=== PATIENT | male | born 1985 | race Two or more races ===

== ENCOUNTER 2017-01-03 16:11 | Inpatient (IN) | payer MEDICAID ==
[~2017-01-03] VITALS: Ht 175.3 cm; Wt 152.8 kg
[~2017-01-03 16:11] MED LIST: ALBU18HF INH; BUME1TAB21 PO; CARV-39 PO; FURO40TA6 PO; LISI30TA4 PO; PROG100I PO
[2017-01-03] MEDS ORDERED: DILTIAZEM 5 MG/ML, 5ML ONE (16:39)
[2017-01-03] MEDS ORDERED: DILTIAZEM 5 MG/ML, 5ML IV ONE (17:00)
[2017-01-03] MEDS ORDERED: SODIUM CHLORIDE FLUSH 10ML SYR IVF ONE (17:00)
[2017-01-03 17:16] LABS: ASPARTATE AMINO TRANSFERASE 22 U/L (15-37); BLOOD UREA NITROGEN 17 mg/dL (7-18)
[2017-01-03 17:22] LABS: IS PT STATUS REG ER OR PRE ER? YES
[2017-01-03] MEDS ORDERED: APIXABAN 5 MG TABLET PO ONE (17:30)
[2017-01-03] MEDS ORDERED: DIGOXIN 0.25 MG/ML, 2ML IVPush ONE (17:30)
[2017-01-03 17:31] LABS: HEMOGLOBIN 13.3 g/dL (13.7-18.0)
[2017-01-03] MEDS ORDERED: DIGOXIN 0.25 MG/ML, 2ML ONE (17:37)
[2017-01-03] MEDS ORDERED: SODIUM CHLORIDE FLUSH 10ML SYR IVF PRN (19:30)
[2017-01-03] MEDS ORDERED: METOPROLOL 1 MG/ML, 5ML ONE (19:41)
[2017-01-03] MEDS ORDERED: METOPROLOL 1 MG/ML, 5ML IVPush ONE ×2 (20:00→21:00)
[2017-01-03] MEDS ORDERED: METOPROLOL 1 MG/ML, 5ML IVPush STA (20:49)
[2017-01-03] MEDS ORDERED: GUAIFENESIN/DM 200-20MG, 10ML UDC PO PRN (21:00)
[2017-01-03] MEDS ORDERED: ACETAMINOPHEN 325 MG TABLET PO PRN (21:00)
[2017-01-03 22:06] LABS: IS PT STATUS REG ER OR PRE ER? NO
[2017-01-03 22:38] VITALS: BP 142/63
[2017-01-03] MEDS ORDERED: LORazepam 1MG TABLET PO ONE (23:00)
[2017-01-04 02:12] VITALS: BP 122/95
[2017-01-04 03:19] LABS: BLOOD UREA NITROGEN 23 mg/dL (7-18)
[2017-01-04 03:27] LABS: IS PT STATUS REG ER OR PRE ER? NO
[2017-01-04] MEDS ORDERED: METOPROLOL 1 MG/ML, 5ML IVPush STA (05:03)
[2017-01-04] MEDS ORDERED: METOPROLOL 1 MG/ML, 5ML ONE ×2 (05:11→15:02)
[2017-01-04 08:00] VITALS: BP 97/57
[2017-01-04] MEDS: FUROSEMIDE 40 MG TABLET PO SCH (08:04)
[2017-01-04] MEDS: APIXABAN 5 MG TABLET PO SCH (08:04)
[2017-01-04] MEDS ORDERED: METOPROLOL TARTRATE 25 MG TABLET PO SCH (09:00)
[2017-01-04] MEDS: DIGOXIN 0.25 MG/ML, 2ML IVPush SCH ×2 (09:30→17:30)
[2017-01-04 09:49] LABS: IS PT STATUS REG ER OR PRE ER? NO
[2017-01-04 14:03] VITALS: BP 104/86
[2017-01-04] MEDS: METOPROLOL TARTRATE 25 MG TABLET PO SCH ×2 (14:06→20:17)
[2017-01-04] MEDS ORDERED: METOPROLOL 1 MG/ML, 5ML IVPush ONE (15:00)
[2017-01-04] MEDS ORDERED: POTASSIUM CHLORIDE 20 MEQ TAB.ER.PRT PO ONE (15:00)
[2017-01-04] MEDS ORDERED: MAGNESIUM SULFATE PMX 2GM/50ML 50 ML IV ONE (15:00)
[2017-01-04 15:05] VITALS: BP 101/74
[2017-01-04] MEDS ORDERED: LORazepam 1MG TABLET PO PRN (16:00)
[2017-01-04 20:00] VITALS: BP 121/85
[2017-01-05] MEDS: DIGOXIN 0.25 MG/ML, 2ML IVPush SCH ×2 (01:25→08:57)
[2017-01-05 02:00] VITALS: BP 112/82
[2017-01-05] MEDS: METOPROLOL TARTRATE 25 MG TABLET PO SCH ×4 (03:07→21:18)
[2017-01-05] MEDS: TEMAZEPAM 15 MG CAPSULE PO PRN ×2 (03:12→21:18)
[2017-01-05 05:48] LABS: HEMOGLOBIN 13.4 g/dL (13.7-18.0)
[2017-01-05 05:50] LABS: BLOOD UREA NITROGEN 19 mg/dL (7-18)
[2017-01-05 05:55] LABS: ASPARTATE AMINO TRANSFERASE 26 U/L (15-37)
[2017-01-05] MEDS: FUROSEMIDE 40 MG TABLET PO SCH (06:05)
[2017-01-05 06:40] VITALS: BP 111/84
[2017-01-05] MEDS ORDERED: AMIODARONE 150 MG in DEXTROSE 5% 100 ML IV ONE ×2 (08:00→10:30)
[2017-01-05 08:48] VITALS: BP 106/70
[2017-01-05] MEDS: AMIODARONE 900 MG in DEXTROSE 5% 482 ML IV PRN (08:52)
[2017-01-05] MEDS: FILTER 0.22 MICRON FOR AMIODARONE IV PRN (08:54)
[2017-01-05] MEDS: APIXABAN 5 MG TABLET PO SCH (08:54)
[2017-01-05] MEDS ORDERED: LISINOPRIL 5 MG TABLET PO SCH (09:00)
[2017-01-05] MEDS: LISINOPRIL 5 MG TABLET PO SCH (12:42)
[2017-01-05 15:10] VITALS: BP 117/86
[2017-01-05 19:43] VITALS: BP 114/86
[2017-01-06] VITALS (7 sets, daily range): BP systolic 108–160; BP diastolic 77–89
[2017-01-06] MEDS: METOPROLOL TARTRATE 25 MG TABLET PO SCH ×2 (03:02→08:05)
[2017-01-06] MEDS ORDERED: NITROGLYCERIN 0.4 MG/SPRAY SL PRN (05:30)
[2017-01-06] MEDS ORDERED: NITROGLYCERIN 0.4 MG BOTTLE (25 TABS) SL PRN (05:30)
[2017-01-06] MEDS: FILTER 0.22 MICRON FOR AMIODARONE IV PRN (06:16)
[2017-01-06] MEDS: AMIODARONE 900 MG in DEXTROSE 5% 482 ML IV PRN (06:16)
[2017-01-06] MEDS: FUROSEMIDE 40 MG TABLET PO SCH (08:05)
[2017-01-06] MEDS: LISINOPRIL 5 MG TABLET PO SCH (08:05)
[2017-01-06] MEDS: APIXABAN 5 MG TABLET PO SCH (08:05)
[2017-01-06] MEDS: DIGOXIN 0.25 MG/ML, 2ML IVPush SCH (08:06)
[2017-01-06 08:43] LABS: HEMOGLOBIN 13.8 g/dL (13.7-18.0)
[2017-01-06 08:55] LABS: BLOOD UREA NITROGEN 19 mg/dL (7-18)
[2017-01-06 09:00] LABS: ASPARTATE AMINO TRANSFERASE 19 U/L (15-37)
[2017-01-06] MEDS ORDERED: AMIODARONE 150 MG in DEXTROSE 5% 100 ML IV ONE (09:30)
[2017-01-06] MEDS ORDERED: FUROSEMIDE 40 MG/4 ML IV ONE (09:30)
[2017-01-06] MEDS: CARVEDILOL 12.5 MG TABLET PO SCH (17:02)
[2017-01-07 02:01] VITALS: BP 109/68
[2017-01-07] MEDS: CARVEDILOL 12.5 MG TABLET PO SCH (05:49)
[2017-01-07 06:35] LABS: ASPARTATE AMINO TRANSFERASE 26 U/L (15-37); BLOOD UREA NITROGEN 20 mg/dL (7-18)
[2017-01-07] MEDS ORDERED: SODIUM CHLORIDE 0.9% 1,000 ML IV SCH (07:30)
[2017-01-07 07:31] VITALS: BP 105/72
[2017-01-07] MEDS: DIGOXIN 0.25 MG/ML, 2ML IVPush SCH (09:00)
[2017-01-07] MEDS ORDERED: PROPOFOL 10 MG/ML, 20ML ONE (10:01)
[2017-01-07] MEDS ORDERED: EPINEPHRINE 1 MG/ML, 1ML ONE (10:01)
[2017-01-07] MEDS ORDERED: AMIODARONE 200 MG TABLET PO SCH (11:00)
[2017-01-07] MEDS: LISINOPRIL 5 MG TABLET PO SCH (11:51)
[2017-01-07] MEDS: APIXABAN 5 MG TABLET PO SCH (11:51)
[2017-01-07] MEDS: FUROSEMIDE 40 MG TABLET PO SCH (11:51)
[2017-01-07 13:49] VITALS: BP 114/78
[2017-01-07] MEDS ORDERED: APIX5TAB PO (17:06)
[2017-01-07] MEDS ORDERED: LISI5TAB7 PO (17:07)
== END 2017-01-07 17:40 | disposition left against medical advice (07) | DRG 308 ==
LOC: ED 17:47 → EDIP 18:10 → 5SO 20:27
PROVIDERS: ADMIT Internal Medicine; ATTEND Internal Medicine
PROC: 0T9B70Z Drainage of Bladder with Drainage Device, Via Natural or Artificial Opening (ICD-10-PCS; 2017-01-05)
PROC: 5A2204Z Restoration of Cardiac Rhythm, Single (ICD-10-PCS; principal; 2017-01-07 09:30)
DX: I48.91 Unspecified atrial fibrillation (principal); I50.23 Acute on chronic systolic (congestive) heart failure; N17.9 Acute kidney failure, unspecified; D68.69 Other thrombophilia; Z68.42 Body mass index [BMI] 45.0-49.9, adult; I42.9 Cardiomyopathy, unspecified; E66.01 Morbid (severe) obesity due to excess calories; J45.909 Unspecified asthma, uncomplicated; F12.90 Cannabis use, unspecified, uncomplicated; D72.829 Elevated white blood cell count, unspecified; Z53.21 Procedure and treatment not carried out due to patient leaving prior to being seen by health care provider; N18.3 Chronic kidney disease, stage 3 (moderate); Z72.89 Other problems related to lifestyle; Z79.899 Other long term (current) drug therapy; Z82.49 Family history of ischemic heart disease and other diseases of the circulatory system; Z87.891 Personal history of nicotine dependence; Z91.14 Patient's other noncompliance with medication regimen; Z91.19 Patient's noncompliance with other medical treatment and regimen; Z56.0 Unemployment, unspecified
CPT/HCPCS: 36415; 71010; 80048; 80053; 81003; 83036; 83605; 83735; 83880; 84100; 84484; 85025; 85610; 85730; 87040; 87070; 87205; 92960; 93005; 93312; 93321; 93325; 96374; 96375; J0171; J1940; J2704; J0282; J1160; J3475; J7060

== ENCOUNTER → 2017-06-03 | Outpatient (CLI) | payer OTHER ==
[~2017-06-03] MED LIST changes: +APIX5TAB PO; +LISI5TAB7 PO
== END | disposition home or self-care (01) ==
LOC: CVU 09:38
PROVIDERS: ATTEND Internal Medicine Endocrinology, Diabetes & Metabolism
DX: I34.0 Nonrheumatic mitral (valve) insufficiency (principal); I11.0 Hypertensive heart disease with heart failure; I50.9 Heart failure, unspecified; I42.9 Cardiomyopathy, unspecified; I25.2 Old myocardial infarction; Z79.01 Long term (current) use of anticoagulants; Z87.891 Personal history of nicotine dependence
CPT/HCPCS: 93306

== ENCOUNTER 2018-05-05 11:02 | Inpatient (IN) | payer MEDICAID, OTHER ==
[~2018-05-05] VITALS: Ht 175.3 cm; Wt 150.6 kg
[2018-05-05] MEDS ORDERED: CARV6.252 PO (11:20)
[2018-05-05] MEDS ORDERED: AMIO200T42 PO (11:20)
[2018-05-05] MEDS ORDERED: POTA20TA14 PO (11:20)
[2018-05-05] MEDS ORDERED: ALBUTEROL/IPRATROPIUM 2.5MG/0.5MG, 3 ML NPPB ONE (11:30)
[2018-05-05] MEDS ORDERED: ALBUTEROL/IPRATROPIUM 2.5MG/0.5MG, 3 ML ONE (11:30)
[2018-05-05] MEDS ORDERED: SODIUM CHLORIDE FLUSH 10ML SYR IVF ONE (11:30)
[2018-05-05 12:07] LABS: BASOPHILS # (AUTO) 0.04 x10^3/uL (0-0.1); BASOPHILS % (AUTO) 0 % (0-1); EOSINOPHILS # (AUTO) 0.08 x10^3/uL (0-0.4); EOSINOPHILS % (AUTO) 1 % (1-7); LYMPHOCYTES # (AUTO) 2.32 x10^3/uL (1-3.4); LYMPHOCYTES % (AUTO) 19 % (22-44); MD NO; MEAN CORPUSCULAR HEMOGLOBIN 29.3 pg (27.5-34.5); MEAN CORPUSCULAR VOLUME 86.2 fL (81-97); MEAN PLATELET VOLUME 8.6 fL (7.4-10.4); MONOCYTES # (AUTO) 0.73 x10^3/uL (0.2-0.8); MONOCYTES % (AUTO) 6 % (2-9); NEUTROPHILS # (AUTO) 8.98 x10^3/uL (1.8-6.8); NEUTROPHILS % (AUTO) 74 % (42-75); PLATELET COUNT 299 x10^3/uL (130-400); RED BLOOD COUNT 5.24 x10^6/uL (4.38-5.82); RED CELL DISTRIBUTION WIDTH 13.6 % (9.4-14.8)
[2018-05-05 12:12] LABS: ALBUMIN 3.9 g/dL (3.4-5.0); ANION GAP 12 mmol/L (5-15); CALCIUM 8.9 mg/dL (8.5-10.1); CHLORIDE 109 mmol/L (98-107)
[2018-05-05 12:18] LABS: ALANINE AMINOTRANSFERASE 24 U/L (12-78); ALKALINE PHOSPHATASE 79 U/L (45-117); BILIRUBIN,TOTAL 0.3 mg/dL (0.2-1.0); TROPONIN I 0.048 ng/mL (0.000-0.045)
[2018-05-05] MEDS ORDERED: NITROGLYCERIN OINT 2%, 1GM TP ONE ×2 (12:30→13:08)
[2018-05-05] MEDS ORDERED: ASPIRIN 81 MG TABLET CHEW PO ONE (12:30)
[2018-05-05] MEDS ORDERED: ASPIRIN 81 MG TABLET CHEW ONE (13:09)
[2018-05-05 14:49] LABS: AMPHETAMINE SCREEN, URINE Negative (Negative); BARBITURATE SCREEN, URINE Negative (Negative); BENZODIAZEPINE SCREEN, URINE Negative (Negative); CANNABINOID SCREEN, URINE Positive (Negative); COCAINE SCREEN, URINE Negative (Negative); METHADONE SCREEN, URINE Negative (Negative); OPIATE SCREEN, URINE Negative (Negative)
[2018-05-05] MEDS ORDERED: LABETALOL 5MG/ML, 20ML IVPush PRN (15:30)
[2018-05-05] MEDS ORDERED: ENALAPRILAT 1.25 MG/ML, 2ML IVPush PRN (15:30)
[2018-05-05] MEDS ORDERED: HEPARIN 5,000 UNITS/ML, 1ML SQ SCH (15:30)
[2018-05-05 16:00] LABS: TROPONIN I 0.042 ng/mL (0.000-0.045)
[2018-05-05 16:28] LABS: HEMOGLOBIN A1C 5.4 % (4.2-6.3)
[2018-05-05] MEDS: FUROSEMIDE 20 MG/2 ML IV SCH (18:07)
[2018-05-05] MEDS: POTASSIUM CHLORIDE 20 MEQ TAB.ER.PRT PO SCH (18:08)
[2018-05-05] MEDS: CARVEDILOL 6.25 MG TABLET PO SCH (18:09)
[2018-05-05] MEDS: ACETAMINOPHEN 325 MG TABLET PO PRN ×2 (18:28→20:40)
[2018-05-05 18:47] VITALS: BP 123/73
[2018-05-05] MEDS: APIXABAN 5 MG TABLET PO SCH (20:40)
[2018-05-05] MEDS: ALBUTEROL SULFATE 2.5 MG/3 ML NPPB SCH (21:35)
[2018-05-06 00:37] VITALS: BP 138/78
[2018-05-06] MEDS: CARVEDILOL 6.25 MG TABLET PO SCH (05:28)
[2018-05-06 05:34] LABS: BASOPHILS # (AUTO) 0.05 x10^3/uL (0-0.1); BASOPHILS % (AUTO) 0 % (0-1); EOSINOPHILS # (AUTO) 0.12 x10^3/uL (0-0.4); EOSINOPHILS % (AUTO) 1 % (1-7); LYMPHOCYTES # (AUTO) 3.34 x10^3/uL (1-3.4); LYMPHOCYTES % (AUTO) 28 % (22-44); MD NO; MEAN CORPUSCULAR HEMOGLOBIN 29.3 pg (27.5-34.5); MEAN CORPUSCULAR HGB CONC 33.7 g/dL (33.2-36.2); MEAN CORPUSCULAR VOLUME 86.9 fL (81-97); MEAN PLATELET VOLUME 8.4 fL (7.4-10.4); MONOCYTES # (AUTO) 0.87 x10^3/uL (0.2-0.8); MONOCYTES % (AUTO) 7 % (2-9); NEUTROPHILS # (AUTO) 7.63 x10^3/uL (1.8-6.8); NEUTROPHILS % (AUTO) 64 % (42-75); PLATELET COUNT 290 x10^3/uL (130-400); RED BLOOD COUNT 4.82 x10^6/uL (4.38-5.82); RED CELL DISTRIBUTION WIDTH 14.3 % (9.4-14.8)
[2018-05-06 05:47] LABS: ANION GAP 9 mmol/L (5-15); CALCIUM 8.8 mg/dL (8.5-10.1); CHLORIDE 108 mmol/L (98-107)
[2018-05-06 05:50] LABS: CREATININE 0.92 mg/dL (0.7-1.3)
[2018-05-06 07:05] VITALS: BP 141/92
[2018-05-06] MEDS: ALBUTEROL SULFATE 2.5 MG/3 ML NPPB SCH ×4 (07:40→20:00)
[2018-05-06] MEDS: FUROSEMIDE 20 MG/2 ML IV SCH ×2 (07:54→17:37)
[2018-05-06] MEDS: POTASSIUM CHLORIDE 20 MEQ TAB.ER.PRT PO SCH ×2 (07:54→17:38)
[2018-05-06] MEDS: APIXABAN 5 MG TABLET PO SCH ×2 (07:54→20:34)
[2018-05-06] MEDS: LISINOPRIL 10 MG TABLET PO SCH (07:55)
[2018-05-06] MEDS: AMIODARONE 200 MG TABLET PO SCH (07:55)
[2018-05-06] MEDS ORDERED: REGADENOSON 0.4 MG/5 ML SYRINGE ONE (08:05)
[2018-05-06] MEDS ORDERED: POTASSIUM CHLORIDE 20 MEQ TAB.ER.PRT PO SCH (09:00)
[2018-05-06 10:29] VITALS: BP 146/97
[2018-05-06 13:50] VITALS: BP 146/86
[2018-05-06] MEDS ORDERED: HEPARIN 1,000 UNITS/ML, 10ML ONE (14:51)
[2018-05-06] MEDS ORDERED: FENTANYL PF 100 MCG/2ML ONE (14:51)
[2018-05-06] MEDS ORDERED: MIDAZOLAM 1 MG/ML, 5ML ONE (14:51)
[2018-05-06] MEDS ORDERED: VERAPAMIL 2.5 MG/ML, 2ML ONE (14:51)
[2018-05-06] MEDS ORDERED: BIVALIRUDIN 250 MG ONE (14:51)
[2018-05-06] MEDS ORDERED: TICAGRELOR 90 MG TABLET ONE (14:51)
[2018-05-06] MEDS ORDERED: LIDOCAINE-MPF 2%, 2ML ONE (14:53)
[2018-05-06] MEDS: CARVEDILOL 12.5 MG TABLET PO SCH (17:38)
[2018-05-06 19:31] VITALS: BP 126/80
[2018-05-07 03:18] VITALS: BP 115/78
[2018-05-07] MEDS: CARVEDILOL 12.5 MG TABLET PO SCH ×2 (05:57→17:57)
[2018-05-07] MEDS: ALBUTEROL SULFATE 2.5 MG/3 ML NPPB SCH (07:24)
[2018-05-07 07:57] VITALS: BP 130/80
[2018-05-07] MEDS: APIXABAN 5 MG TABLET PO SCH ×2 (09:16→21:33)
[2018-05-07] MEDS: POTASSIUM CHLORIDE 20 MEQ TAB.ER.PRT PO SCH (09:16)
[2018-05-07] MEDS: LISINOPRIL 10 MG TABLET PO SCH (09:16)
[2018-05-07] MEDS: AMIODARONE 200 MG TABLET PO SCH (09:16)
[2018-05-07] MEDS: FUROSEMIDE 20 MG/2 ML IV SCH (09:17)
[2018-05-07] MEDS: SPIRONOLACTONE 25 MG TABLET PO SCH (11:16)
[2018-05-07 14:00] VITALS: BP 139/80
[2018-05-07 19:35] VITALS: BP 126/88
[2018-05-07 23:23] LABS: CLOSTRIDIUM DIFFICILE ANTIGEN NEGATIVE; CLOSTRIDIUM DIFFICILE TOXIN NEGATIVE (Negative)
[2018-05-08 03:25] VITALS: BP 102/64
[2018-05-08 05:03] VITALS: BP 124/83
[2018-05-08] MEDS: CARVEDILOL 12.5 MG TABLET PO SCH (05:05)
[2018-05-08 05:23] LABS: ANION GAP 6 mmol/L (5-15); CHLORIDE 105 mmol/L (98-107)
[2018-05-08 05:24] LABS: CREATININE 1.13 mg/dL (0.7-1.3)
[2018-05-08] MEDS ORDERED: ALBUTEROL SULFATE 2.5 MG/3 ML NPPB SCH (07:00)
[2018-05-08 08:30] VITALS: BP 135/97
[2018-05-08] MEDS: APIXABAN 5 MG TABLET PO SCH (08:38)
[2018-05-08] MEDS: SPIRONOLACTONE 25 MG TABLET PO SCH (08:38)
[2018-05-08] MEDS: LISINOPRIL 10 MG TABLET PO SCH (08:38)
[2018-05-08] MEDS: AMIODARONE 200 MG TABLET PO SCH (08:38)
[2018-05-08] MEDS ORDERED: FUROSEMIDE 20 MG TABLET PO SCH (09:00)
[2018-05-08] MEDS ORDERED: CARV6.252 PO (13:08)
[2018-05-08] MEDS ORDERED: SPIR25TA PO (13:08)
[2018-05-08] MEDS ORDERED: FURO40TA6 PO (13:08)
[2018-05-08 14:13] VITALS: BP 142/81
== END 2018-05-08 14:45 | disposition home or self-care (01) | DRG 287 ==
LOC: ED 12:32 → OBSVTOIN 14:31 → INTOOBSV 14:31 → EDIP 14:31 → 5SO 15:22
PROVIDERS: ADMIT Internal Medicine; ATTEND Internal Medicine
PROC: 4A023N7 Measurement of Cardiac Sampling and Pressure, Left Heart, Percutaneous Approach (ICD-10-PCS; principal; 2018-05-06)
PROC: B2111ZZ Fluoroscopy of Multiple Coronary Arteries using Low Osmolar Contrast (ICD-10-PCS; 2018-05-06)
PROC: B2151ZZ Fluoroscopy of Left Heart using Low Osmolar Contrast (ICD-10-PCS; 2018-05-06)
DX: I42.9 Cardiomyopathy, unspecified (principal); D68.69 Other thrombophilia; Z68.42 Body mass index [BMI] 45.0-49.9, adult; I20.0 Unstable angina; D72.829 Elevated white blood cell count, unspecified; E66.01 Morbid (severe) obesity due to excess calories; F12.90 Cannabis use, unspecified, uncomplicated; F41.0 Panic disorder [episodic paroxysmal anxiety]; I11.0 Hypertensive heart disease with heart failure; I48.0 Paroxysmal atrial fibrillation; F41.9 Anxiety disorder, unspecified; I48.2 Chronic atrial fibrillation; I50.9 Heart failure, unspecified; J45.909 Unspecified asthma, uncomplicated; Z79.01 Long term (current) use of anticoagulants; Z79.82 Long term (current) use of aspirin; Z82.49 Family history of ischemic heart disease and other diseases of the circulatory system; Z87.891 Personal history of nicotine dependence
CPT/HCPCS: 36415; 93458; 99285; J7613; J7620; 70450; 71045; 80048; 80053; 80307; 83036; 83735; 83880; 84100; 84484; 85025; 87324; 93005; 93306; 94640; 99156; C1769; C1894; J0583; J1644; J2250; J2785; J3010; J3490; G0378; J1940; Q9967

== ENCOUNTER 2019-12-17 09:32 | Inpatient (IN) | payer MEDICAID ==
[~2019-12-17] VITALS: Ht 180.3 cm; Wt 149.0 kg
[~2019-12-17 09:32] MED LIST changes: +AMIO200T42 PO; +CARV6.252 PO; +POTA20TA14 PO; +SPIR25TA PO
[2019-12-17] MEDS ORDERED: MAALOX/HYOSCYAMINE/LIDOCAINE 45 ML BTL ONE (10:33)
--- NOTE | 2019-12-17 10:39 | NUR ---
PT RESTING IN ROOM. PT MEDICATED PER ORDER. PT UPDATED ON POC. PT HAS NO OTHER QUESTIONS OR CONCERNS AT THSI TIME. PT ENCOURAGED TO USE CALL LIGHT FOR ANY NEEDS OR CONCERNS.
[2019-12-17] MEDS ORDERED: MAALOX/HYOSCYAMINE/LIDOCAINE 45 ML BTL PO ONE (11:00)
[2019-12-17 11:27] LABS: ALANINE AMINOTRANSFERASE 267 U/L (12-78); ANION GAP 11 mmol/L (5-15); CHLORIDE 106 mmol/L (98-107); CREATININE 1.27 mg/dL (0.7-1.3)
[2019-12-17 11:28] LABS: BASOPHILS # (AUTO) 0.03 x10^3/uL (0-0.1); BASOPHILS % (AUTO) 0 % (0-1); EOSINOPHILS # (AUTO) 0.03 x10^3/uL (0-0.4); EOSINOPHILS % (AUTO) 0 % (1-7); LYMPHOCYTES % (AUTO) 14 % (22-44); MD NO; MEAN CORPUSCULAR HEMOGLOBIN 28.7 pg (27.5-34.5); MEAN CORPUSCULAR HGB CONC 32.2 g/dL (33.2-36.2); MEAN CORPUSCULAR VOLUME 89.4 fL (81-97); MEAN PLATELET VOLUME 9.1 fL (7.4-10.4); MONOCYTES # (AUTO) 0.82 x10^3/uL (0.2-0.8); MONOCYTES % (AUTO) 7 % (2-9); NEUTROPHILS # (AUTO) 9.99 x10^3/uL (1.8-6.8); NEUTROPHILS % (AUTO) 80 % (42-75); PLATELET COUNT 261 x10^3/uL (130-400); RED BLOOD COUNT 4.69 x10^6/uL (4.38-5.82); RED CELL DISTRIBUTION WIDTH 15.7 % (9.4-14.8)
[2019-12-17 11:30] LABS: ALKALINE PHOSPHATASE 72 U/L (45-117); BILIRUBIN,TOTAL 1.6 mg/dL (0.2-1.0); TOTAL PROTEIN 6.7 g/dL (6.4-8.2)
[2019-12-17] MEDS ORDERED: ONDANSETRON ODT 4 MG PO ONE (12:00)
[2019-12-17] MEDS ORDERED: HYDROmorphone 2 MG/ML, 1ML IM ONE (12:00)
[2019-12-17] MEDS ORDERED: HYDROmorphone 1 MG/ML, 1ML INJ ONE (12:14)
[2019-12-17] MEDS ORDERED: ONDANSETRON ODT 4 MG ONE (12:27)
[2019-12-17] MEDS ORDERED: DIAZEPAM 5 MG TABLET ONE (13:40)
[2019-12-17] MEDS ORDERED: KETOROLAC 30 MG/1 ML ONE (13:40)
--- NOTE | 2019-12-17 13:40 | NUR ---
NO ISOLATION PRECAUTIONS IN PLACE AT THIS TIME. PT BEING ADMITTED TO [facility]. PT AGREES WITH POC AT THIS TIME.
[2019-12-17] MEDS ORDERED: CEFOTETAN PMX 1GM/50ML 50 ML ONE (13:43)
[2019-12-17] MEDS ORDERED: METRONIDAZOLE PMX 500MG/100ML 100 ML ONE (13:43)
[2019-12-17] MEDS ORDERED: CEFOTETAN PMX 1GM/50ML 50 ML IV ONE (14:00)
[2019-12-17] MEDS ORDERED: METRONIDAZOLE PMX 500MG/100ML 100 ML IV ONE (14:00)
--- NOTE | 2019-12-17 15:53 | NUR ---
ATTEMPT TO CALL REPORT. RN UNAVAILABLE. WILL CALL BACK.
--- NOTE | 2019-12-17 15:59 | NUR ---
REPORT TO MARGE KIMBALL. PT IS READY FOR TRANSPORT.
[2019-12-17] MEDS ORDERED: ONDANSETRON ODT 4 MG PO PRN (17:00)
[2019-12-17] MEDS ORDERED: morphine SULFATE 10 MG/ML, 1ML IVPush PRN (17:00)
[2019-12-17] MEDS ORDERED: ENALAPRILAT 1.25 MG/ML, 2ML IVPush PRN (17:00)
[2019-12-17] MEDS ORDERED: BISACODYL 10 MG SUPP PR PRN (17:00)
[2019-12-17] MEDS: METRONIDAZOLE PMX 500MG/100ML 100 ML IV SCH (17:00)
[2019-12-17] MEDS ORDERED: POLYETHYLENE GLYCOL 17 GM PACKET PO PRN (17:00)
[2019-12-17] MEDS ORDERED: LABETALOL 5MG/ML, 20ML IVPush PRN (17:00)
[2019-12-17] MEDS ORDERED: ACETAMINOPHEN 325 MG TABLET PO PRN (17:00)
[2019-12-17 18:17] LABS: INTERNATIONAL NORMALIZED RATIO 1.45 (0.93-1.1); PROTHROMBIN TIME 15.4 Seconds (9.6-11.5)
[2019-12-17] MEDS: CARVEDILOL 12.5 MG TABLET PO SCH (18:46)
[2019-12-17 21:08] VITALS: BP 119/89
[2019-12-17] MEDS: CEFOTETAN PMX 2GM/50ML 50 ML IV SCH (21:44)
[2019-12-17] MEDS ORDERED: CEFOTETAN PMX 2GM/50ML 50 ML IV SCH (23:00)
[2019-12-18 00:45] VITALS: BP 91/62
[2019-12-18] MEDS ORDERED: FUROSEMIDE 40 MG TABLET ONE (01:17)
[2019-12-18] MEDS: KETOROLAC 30 MG/1 ML IV PRN ×2 (01:22→23:35)
[2019-12-18] MEDS: METRONIDAZOLE PMX 500MG/100ML 100 ML IV SCH ×3 (01:22→17:23)
[2019-12-18] MEDS ORDERED: FUROSEMIDE 40 MG TABLET PO ONE (01:30)
[2019-12-18 05:49] LABS: BASOPHILS # (AUTO) 0.07 x10^3/uL (0-0.1); BASOPHILS % (AUTO) 1 % (0-1); EOSINOPHILS # (AUTO) 0.09 x10^3/uL (0-0.4); EOSINOPHILS % (AUTO) 1 % (1-7); LYMPHOCYTES # (AUTO) 2.79 x10^3/uL (1-3.4); LYMPHOCYTES % (AUTO) 22 % (22-44); MD NO; MEAN CORPUSCULAR HEMOGLOBIN 28.9 pg (27.5-34.5); MEAN CORPUSCULAR VOLUME 90.3 fL (81-97); MEAN PLATELET VOLUME 9.2 fL (7.4-10.4); MONOCYTES # (AUTO) 1.11 x10^3/uL (0.2-0.8); MONOCYTES % (AUTO) 9 % (2-9); NEUTROPHILS # (AUTO) 8.68 x10^3/uL (1.8-6.8); NEUTROPHILS % (AUTO) 68 % (42-75); PLATELET COUNT 249 x10^3/uL (130-400); RED BLOOD COUNT 4.58 x10^6/uL (4.38-5.82); RED CELL DISTRIBUTION WIDTH 15.9 % (9.4-14.8)
[2019-12-18] MEDS: CARVEDILOL 12.5 MG TABLET PO SCH ×3 (05:51→20:58)
[2019-12-18 05:59] LABS: ALANINE AMINOTRANSFERASE 278 U/L (12-78); ANION GAP 6 mmol/L (5-15); CALCIUM 8.2 mg/dL (8.5-10.1); CHLORIDE 105 mmol/L (98-107); CREATININE 1.29 mg/dL (0.7-1.3)
[2019-12-18 06:01] LABS: ALKALINE PHOSPHATASE 74 U/L (45-117); BILIRUBIN,TOTAL 1.3 mg/dL (0.2-1.0); TOTAL PROTEIN 6.5 g/dL (6.4-8.2)
[2019-12-18 08:00] VITALS: BP 120/49
[2019-12-18] MEDS ORDERED: LISINOPRIL 10 MG TABLET PO SCH (09:00)
[2019-12-18] MEDS: AMIODARONE 200 MG TABLET PO SCH (09:31)
[2019-12-18] MEDS: CEFOTETAN PMX 2GM/50ML 50 ML IV SCH ×2 (09:31→20:58)
[2019-12-18] MEDS ORDERED: FENTANYL PF 250 MCG/5ML ONE (10:00)
[2019-12-18 10:03] LABS: MICROSCOPIC INDICATED
[2019-12-18] MEDS ORDERED: EPINEPHRINE 1 MG/ML, 1ML ONE (10:21)
[2019-12-18] MEDS ORDERED: PHENYLEPHRINE 10 MG/ML ONE (10:21)
[2019-12-18 10:24] LABS: CULTURE INDICATED? NO
[2019-12-18] MEDS ORDERED: METRONIDAZOLE PMX 500MG/100ML 100 ML IVPB ONE (10:28)
[2019-12-18] MEDS ORDERED: BUPIVACAINE/PF-EPI 0.5% 1:200K ONE (10:34)
[2019-12-18] MEDS ORDERED: BUPIVACAINE/PF-EPI 0.5% 1:200K INFIL ONE (10:56)
[2019-12-18] MEDS ORDERED: NEOSTIGMINE 1 MG/ML, 10ML ONE (11:03)
[2019-12-18] MEDS ORDERED: SUCCINYLCHOLINE 20 MG/ML, 10ML ONE (11:03)
[2019-12-18] MEDS ORDERED: ROCURONIUM 10MG/ML,5ML ONE (11:03)
[2019-12-18] MEDS ORDERED: ONDANSETRON 2MG/ML, 2ML ONE (11:03)
[2019-12-18] MEDS ORDERED: PROPOFOL 10 MG/ML, 20ML ONE (11:03)
[2019-12-18] MEDS ORDERED: DEXAMETHASONE 4 MG/ML, 1ML ONE (11:03)
[2019-12-18] MEDS ORDERED: GLYCOPYRROLATE 0.2MG/1ML, 5ML ONE (11:03)
[2019-12-18] MEDS ORDERED: NALOXONE 0.4 MG/ML, 1ML ONE (11:09)
[2019-12-18] MEDS ORDERED: MIDAZOLAM 1 MG/ML, 2ML IV PRN (11:30)
[2019-12-18] MEDS ORDERED: ALBUTEROL/IPRATROPIUM 2.5MG/0.5MG, 3 ML NPPB PRN (11:30)
[2019-12-18] MEDS ORDERED: HYDROmorphone 2 MG/ML, 1ML IVPush PRN (11:30)
[2019-12-18] MEDS ORDERED: METOPROLOL 1 MG/ML, 5ML IV PRN (11:30)
[2019-12-18] MEDS ORDERED: FENTANYL PF 100 MCG/2ML IV PRN (11:30)
[2019-12-18] MEDS ORDERED: PROMETHAZINE 25 MG/ML, 1ML IV PRN (11:30)
[2019-12-18] MEDS ORDERED: OXYcodone 5 MG/5 ML ORAL.SOL UDC PO PRN (11:30)
[2019-12-18] MEDS ORDERED: MEPERIDINE/PF 25MG/ML,1ML IVPush PRN (11:30)
[2019-12-18] MEDS ORDERED: hydrALAzine 20 MG/ML, 1ML IV PRN (11:30)
[2019-12-18] MEDS ORDERED: ACETAMINOPHEN 325 MG TABLET PO PRN (11:30)
[2019-12-18] MEDS ORDERED: OXYcodone 5 MG/5 ML ORAL.SOL UDC ONE (11:37)
[2019-12-18] MEDS ORDERED: [UNRECOGNIZED DRUG - REMARK] MC PRN (12:30)
[2019-12-18 13:00] VITALS: BP 95/71
[2019-12-18] MEDS: ONDANSETRON 2MG/ML, 2ML IVPush PRN (13:15)
[2019-12-18 17:29] VITALS: BP 90/60
[2019-12-18 21:24] VITALS: BP 107/74
[2019-12-19 00:38] VITALS: BP 97/65
[2019-12-19] MEDS: METRONIDAZOLE PMX 500MG/100ML 100 ML IV SCH ×3 (01:16→17:17)
[2019-12-19 03:50] VITALS: BP 96/64
[2019-12-19] MEDS: KETOROLAC 30 MG/1 ML IV PRN (05:39)
[2019-12-19] MEDS: CARVEDILOL 12.5 MG TABLET PO SCH ×2 (05:41→17:19)
[2019-12-19 06:09] LABS: BASOPHILS # (AUTO) 0.02 x10^3/uL (0-0.1); BASOPHILS % (AUTO) 0 % (0-1); EOSINOPHILS % (AUTO) 0 % (1-7); LYMPHOCYTES # (AUTO) 1.05 x10^3/uL (1-3.4); LYMPHOCYTES % (AUTO) 8 % (22-44); MD NO; MEAN CORPUSCULAR HEMOGLOBIN 28.8 pg (27.5-34.5); MEAN CORPUSCULAR HGB CONC 32.1 g/dL (33.2-36.2); MEAN CORPUSCULAR VOLUME 89.4 fL (81-97); MEAN PLATELET VOLUME 9.6 fL (7.4-10.4); MONOCYTES % (AUTO) 6 % (2-9); NEUTROPHILS # (AUTO) 11.06 x10^3/uL (1.8-6.8); NEUTROPHILS % (AUTO) 86 % (42-75); PLATELET COUNT 254 x10^3/uL (130-400); RED BLOOD COUNT 4.63 x10^6/uL (4.38-5.82); RED CELL DISTRIBUTION WIDTH 15.9 % (9.4-14.8)
[2019-12-19 06:19] LABS: CHLORIDE 107 mmol/L (98-107)
[2019-12-19 06:26] LABS: ALANINE AMINOTRANSFERASE 221 U/L (12-78); ALBUMIN 2.7 g/dL (3.4-5.0); ALKALINE PHOSPHATASE 71 U/L (45-117); ANION GAP 5 mmol/L (5-15); BILIRUBIN,TOTAL 0.8 mg/dL (0.2-1.0); CALCIUM 8.1 mg/dL (8.5-10.1); CREATININE 1.57 mg/dL (0.7-1.3); TOTAL PROTEIN 6.2 g/dL (6.4-8.2)
[2019-12-19 08:00] VITALS: BP 93/65
[2019-12-19] MEDS: AMIODARONE 200 MG TABLET PO SCH (09:19)
[2019-12-19] MEDS: CEFOTETAN PMX 2GM/50ML 50 ML IV SCH ×2 (10:36→22:13)
[2019-12-19] MEDS: HYDROcodone/APAP 5/325 TABLET PO PRN ×3 (12:27→22:14)
[2019-12-19] MEDS: DOCUSATE 100 MG CAPSULE PO PRN ×2 (12:27→17:17)
[2019-12-19 13:12] VITALS: BP 106/66
[2019-12-19 19:23] VITALS: BP 115/66
[2019-12-19] MEDS ORDERED: POTASSIUM CHLORIDE 20 MEQ TAB.ER.PRT PO SCH (23:00)
[2019-12-19] MEDS: POTASSIUM CHLORIDE 20 MEQ TAB.ER.PRT PO SCH (23:08)
[2019-12-19] MEDS: FUROSEMIDE 40 MG TABLET PO SCH (23:09)
[2019-12-20] MEDS: ONDANSETRON 2MG/ML, 2ML IVPush PRN (00:50)
[2019-12-20 00:54] VITALS: BP 104/73
[2019-12-20] MEDS: METRONIDAZOLE PMX 500MG/100ML 100 ML IV SCH ×2 (01:13→09:07)
[2019-12-20 04:25] VITALS: BP 129/107
[2019-12-20] MEDS: HYDROcodone/APAP 5/325 TABLET PO PRN (05:16)
[2019-12-20] MEDS: CARVEDILOL 12.5 MG TABLET PO SCH (05:16)
[2019-12-20 07:16] VITALS: BP 98/63
[2019-12-20] MEDS: FUROSEMIDE 40 MG TABLET PO SCH (07:51)
[2019-12-20] MEDS ORDERED: FUROSEMIDE 40 MG TABLET PO SCH (09:00)
[2019-12-20] MEDS: POTASSIUM CHLORIDE 20 MEQ TAB.ER.PRT PO SCH (09:07)
[2019-12-20] MEDS: AMIODARONE 200 MG TABLET PO SCH (09:08)
[2019-12-20 09:15] LABS: MEAN CORPUSCULAR HEMOGLOBIN 29.3 pg (27.5-34.5); MEAN CORPUSCULAR HGB CONC 32.4 g/dL (33.2-36.2); MEAN CORPUSCULAR VOLUME 90.4 fL (81-97); MEAN PLATELET VOLUME 8.9 fL (7.4-10.4); PLATELET COUNT 285 x10^3/uL (130-400); RED BLOOD COUNT 4.56 x10^6/uL (4.38-5.82); RED CELL DISTRIBUTION WIDTH 15.9 % (9.4-14.8)
[2019-12-20 09:29] LABS: ALBUMIN 2.7 g/dL (3.4-5.0); ANION GAP 5 mmol/L (5-15); CALCIUM 8.3 mg/dL (8.5-10.1); CHLORIDE 107 mmol/L (98-107)
[2019-12-20] MEDS ORDERED: SENNA/DOCUSATE TABLET PO SCH (09:30)
[2019-12-20 09:32] LABS: ALANINE AMINOTRANSFERASE 168 U/L (12-78); ALKALINE PHOSPHATASE 80 U/L (45-117); BILIRUBIN,TOTAL 0.6 mg/dL (0.2-1.0); CREATININE 1.45 mg/dL (0.7-1.3); TOTAL PROTEIN 6.1 g/dL (6.4-8.2)
[2019-12-20 09:49] LABS: BASOPHILS # (AUTO) 0.05 x10^3/uL (0-0.1); BASOPHILS % (AUTO) 0 % (0-1); EOSINOPHILS # (AUTO) 0.02 x10^3/uL (0-0.4); EOSINOPHILS % (AUTO) 0 % (1-7); LYMPHOCYTES # (AUTO) 1.72 x10^3/uL (1-3.4); LYMPHOCYTES % (AUTO) 10 % (22-44); MD SCAN; MONOCYTES % (AUTO) 6 % (2-9); NEUTROPHILS # (AUTO) 14.36 x10^3/uL (1.8-6.8); NEUTROPHILS % (AUTO) 84 % (42-75)
[2019-12-20] MEDS: CEFOTETAN PMX 2GM/50ML 50 ML IV SCH (10:00)
== END 2019-12-20 10:25 | disposition left against medical advice (07) | DRG 263 ==
LOC: ED 12:15 → EDIP 13:31 → 4NE 16:50
PROVIDERS: ADMIT Surgery; ATTEND Surgery
PROC: 0FT44ZZ Resection of Gallbladder, Percutaneous Endoscopic Approach (ICD-10-PCS; principal; 2019-12-18 07:30)
DX: K81.0 Acute cholecystitis (principal); D68.69 Other thrombophilia; I42.8 Other cardiomyopathies; I50.9 Heart failure, unspecified; I11.0 Hypertensive heart disease with heart failure; R74.0 Nonspecific elevation of levels of transaminase and lactic acid dehydrogenase [LDH]; E66.01 Morbid (severe) obesity due to excess calories; F41.9 Anxiety disorder, unspecified; I48.20 Chronic atrial fibrillation, unspecified; Z82.49 Family history of ischemic heart disease and other diseases of the circulatory system; Z87.891 Personal history of nicotine dependence; Z68.41 Body mass index [BMI] 40.0-44.9, adult; Z79.01 Long term (current) use of anticoagulants; Z66 Do not resuscitate; K59.00 Constipation, unspecified; J45.909 Unspecified asthma, uncomplicated; D72.829 Elevated white blood cell count, unspecified
CPT/HCPCS: 36415; 76700; 78226; 80053; 80074; 81001; 82140; 83690; 84145; 85025; 85610; 87040; 88304; 93005; 96372; G0378; J0171; J1100; J1170; J1885; J2310; J2405; J2704; J2710; J3010; Q0162; A9537; C1760; C9898; J0330; J2370; J3490

== ENCOUNTER 2019-12-21 14:04 | Inpatient (IN) | payer MEDICAID ==
[~2019-12-21] VITALS: Ht 180.3 cm; Wt 157.0 kg
[2019-12-21] MEDS ORDERED: SODIUM CHLORIDE 0.9% 1,000ML IVBOLUS ONE ×2 (14:30→17:00)
[2019-12-21] MEDS ORDERED: ONDANSETRON 2MG/ML, 2ML IVPush ONE (14:30)
[2019-12-21] MEDS ORDERED: SODIUM CHLORIDE FLUSH 10ML SYR IVF ONE (14:30)
[2019-12-21 14:51] LABS: BASOPHILS # (AUTO) 0.04 x10^3/uL (0-0.1); BASOPHILS % (AUTO) 0 % (0-1); EOSINOPHILS # (AUTO) 0.06 x10^3/uL (0-0.4); EOSINOPHILS % (AUTO) 0 % (1-7); LYMPHOCYTES # (AUTO) 3.16 x10^3/uL (1-3.4); LYMPHOCYTES % (AUTO) 22 % (22-44); MD NO; MEAN CORPUSCULAR HEMOGLOBIN 28.8 pg (27.5-34.5); MEAN CORPUSCULAR HGB CONC 31.9 g/dL (33.2-36.2); MEAN CORPUSCULAR VOLUME 90.4 fL (81-97); MEAN PLATELET VOLUME 8.5 fL (7.4-10.4); MONOCYTES % (AUTO) 8 % (2-9); NEUTROPHILS # (AUTO) 9.82 x10^3/uL (1.8-6.8); NEUTROPHILS % (AUTO) 69 % (42-75); PLATELET COUNT 322 x10^3/uL (130-400); RED BLOOD COUNT 4.85 x10^6/uL (4.38-5.82); RED CELL DISTRIBUTION WIDTH 16.3 % (9.4-14.8)
[2019-12-21 14:55] LABS: ALANINE AMINOTRANSFERASE 132 U/L (12-78); ALBUMIN 2.9 g/dL (3.4-5.0); ANION GAP 6 mmol/L (5-15); CALCIUM 8.3 mg/dL (8.5-10.1); CHLORIDE 111 mmol/L (98-107); CREATININE 0.96 mg/dL (0.7-1.3)
[2019-12-21] MEDS ORDERED: ONDANSETRON 2MG/ML, 2ML ONE (14:56)
[2019-12-21] MEDS ORDERED: MORPHINE SULFATE 4 MG/ML, 1ML ONE ×2 (14:56→16:04)
[2019-12-21 14:58] LABS: ALKALINE PHOSPHATASE 69 U/L (45-117); BILIRUBIN,TOTAL 0.8 mg/dL (0.2-1.0); TOTAL PROTEIN 6.5 g/dL (6.4-8.2)
[2019-12-21] MEDS: MORPHINE SULFATE 4 MG/ML, 1ML IVPush PRN ×2 (14:59→16:06)
--- NOTE | 2019-12-21 15:03 | NUR ---
RN RETURNED FROM LUNCH BREAK: PT LYING ON GURNEY. STATES 07/08 ARTIE PASCAL. RN ADMINISTERED MEDICATION PER EMAR. PT STATING HE IS COLD. RN PROVIDED PT WITH JEFE MOORE. RN TO PROVIDE PT WITH MORE BLANKETS. AWAITING CT SCAN. NO OTHER NEEDS AT THIS TIME.
[2019-12-21 15:07] LABS: INTERNATIONAL NORMALIZED RATIO 1.21 (0.93-1.1); PROTHROMBIN TIME 12.8 Seconds (9.6-11.5)
--- NOTE | 2019-12-21 15:15 | NUR ---
RN INFORMED MD THAT PT MAY MEET SEPSIS PROTOCOL DUE TO VITAL SIGNS AND LAB WORK. MD STATED HE WOULD LIKE A RECTAL TEMPERATURE ON PATIENT AND HE WOULD ORDER MORE INTERVENTIONS.
--- NOTE | 2019-12-21 15:17 | NUR ---
PT IN CT SCAN.
[2019-12-21] MEDS ORDERED: PIPERACILLIN/TAZO/PMX 4.5GM 100 ML IV ONE (15:30)
[2019-12-21] MEDS ORDERED: OMNIPAQUE 350 MG/ML, 100ML BOTTLE ONE (15:31)
--- NOTE | 2019-12-21 15:59 | NUR ---
PRIMARY RN AND LEONIDAS RN HOOK PT UP TO CONTINOUS RECTAL TEMPERATURE. PT CURRENTLY 94.5F. RN SENT UP JEFE MOORE. FLUID WARMER BEING USED. RN EXPLAINED POC TO PT. NO FURTHER QUESTIONS OR CONCERNS AT THIS TIME.
[2019-12-21 16:08] LABS: FREE T4 (FREE THYROXINE) 1.43 ng/dL (0.76-1.46)
--- NOTE | 2019-12-21 16:30 | NUR ---
JIGAR AND SILVIA AT BEDSIDE GOING OVER POC WITH PT.
--- NOTE | 2019-12-21 16:44 | NUR ---
Denied by Loyda Ak Yan Good.
--- NOTE | 2019-12-21 16:45 | NUR ---
See above note. Patient was attempted to be transferred as they have [facility] insurance.
[2019-12-21] MEDS ORDERED: LEVOTHYROXINE 100 MCG INJ IVPush ONE (17:00)
--- NOTE | 2019-12-21 17:07 | NUR ---
MEDICATION ADMINISTERED PER EMAR.
--- NOTE | 2019-12-21 17:17 | NUR ---
PT ATTEMPTED TO PROVIDE RN A URINE SAMPLE. PT UNABLE TO AT THIS TIME.
--- NOTE | 2019-12-21 17:29 | NUR ---
REPORT TO JIGAR DO. PT TO BE TRANSPORTED TO [facility]IA [facility].
--- NOTE | 2019-12-21 17:37 | NUR ---
PT ABLE TO PROVIDE RN WITH A URINE SAMPLE BEFORE TRANSPORTING TO FLOOR. COLLECTED AND SENT TO LAB.
[2019-12-21 17:55] LABS: MICROSCOPIC NOT IND
[2019-12-21 18:09] VITALS: BP 126/84
[2019-12-21 18:34] LABS: CULTURE INDICATED? NO
[2019-12-21] MEDS ORDERED: ONDANSETRON ODT 4 MG PO PRN (20:00)
[2019-12-21] MEDS ORDERED: BISACODYL 10 MG SUPP PR PRN (20:00)
[2019-12-21] MEDS ORDERED: ACETAMINOPHEN 325 MG TABLET PO PRN (20:00)
[2019-12-21 20:47] VITALS: BP 154/94
[2019-12-21] MEDS: SODIUM CHLORIDE FLUSH 10ML SYR IVF SCH (20:52)
[2019-12-21] MEDS: CARVEDILOL 12.5 MG TABLET PO SCH (20:52)
[2019-12-21] MEDS: POLYETHYLENE GLYCOL 17 GM PACKET PO SCH (20:52)
[2019-12-21 21:15] VITALS: BP 126/84
[2019-12-21] MEDS: OXYcodone IR 5MG TABLET PO PRN (21:49)
[2019-12-21] MEDS: PIPERACILLIN/TAZO/PMX 3.375GM 50 ML IV SCH (21:50)
[2019-12-21 23:48] VITALS: BP 114/72
[2019-12-22] MEDS ORDERED: FUROSEMIDE 40 MG/4 ML IV ONE
[2019-12-22 01:11] VITALS: BP 135/81
[2019-12-22] MEDS: OXYcodone IR 5MG TABLET PO PRN ×3 (03:54→20:28)
[2019-12-22] MEDS: PIPERACILLIN/TAZO/PMX 3.375GM 50 ML IV SCH ×4 (03:54→22:03)
[2019-12-22 05:53] LABS: BASOPHILS # (AUTO) 0.07 x10^3/uL (0-0.1); BASOPHILS % (AUTO) 1 % (0-1); EOSINOPHILS # (AUTO) 0.11 x10^3/uL (0-0.4); EOSINOPHILS % (AUTO) 1 % (1-7); LYMPHOCYTES # (AUTO) 3.39 x10^3/uL (1-3.4); LYMPHOCYTES % (AUTO) 30 % (22-44); MD NO; MEAN CORPUSCULAR HEMOGLOBIN 29.1 pg (27.5-34.5); MEAN CORPUSCULAR HGB CONC 32.1 g/dL (33.2-36.2); MEAN CORPUSCULAR VOLUME 90.6 fL (81-97); MEAN PLATELET VOLUME 8.1 fL (7.4-10.4); MONOCYTES # (AUTO) 0.76 x10^3/uL (0.2-0.8); MONOCYTES % (AUTO) 7 % (2-9); NEUTROPHILS # (AUTO) 7.09 x10^3/uL (1.8-6.8); NEUTROPHILS % (AUTO) 62 % (42-75); PLATELET COUNT 303 x10^3/uL (130-400); RED BLOOD COUNT 4.44 x10^6/uL (4.38-5.82); RED CELL DISTRIBUTION WIDTH 16.5 % (9.4-14.8)
[2019-12-22 06:05] LABS: ALANINE AMINOTRANSFERASE 116 U/L (12-78); ALBUMIN 2.9 g/dL (3.4-5.0); ANION GAP 8 mmol/L (5-15); CALCIUM 8.1 mg/dL (8.5-10.1); CHLORIDE 105 mmol/L (98-107); CREATININE 1.15 mg/dL (0.7-1.3)
[2019-12-22 06:07] LABS: ALKALINE PHOSPHATASE 80 U/L (45-117); BILIRUBIN,TOTAL 0.8 mg/dL (0.2-1.0); TOTAL PROTEIN 6.4 g/dL (6.4-8.2)
[2019-12-22] MEDS ORDERED: FUROSEMIDE 20 MG TABLET PO SCH (09:00)
[2019-12-22] MEDS: SODIUM CHLORIDE FLUSH 10ML SYR IVF SCH ×2 (09:00→21:42)
[2019-12-22] MEDS ORDERED: LEVOTHYROXINE 100 MCG INJ IVPush SCH (09:00)
[2019-12-22] MEDS: POTASSIUM CHLORIDE 20 MEQ TAB.ER.PRT PO SCH (09:13)
[2019-12-22] MEDS: SENNA/DOCUSATE TABLET PO SCH (09:13)
[2019-12-22] MEDS: POLYETHYLENE GLYCOL 17 GM PACKET PO SCH (09:13)
[2019-12-22] MEDS: AMIODARONE 200 MG TABLET PO SCH (09:14)
[2019-12-22] MEDS: LISINOPRIL 10 MG TABLET PO SCH (09:14)
[2019-12-22] MEDS: SPIRONOLACTONE 25 MG TABLET PO SCH (09:14)
[2019-12-22] MEDS: CARVEDILOL 12.5 MG TABLET PO SCH ×2 (09:14→21:41)
[2019-12-22 10:00] VITALS: BP 103/69
[2019-12-22 15:15] VITALS: BP 92/61
[2019-12-22] MEDS: FUROSEMIDE 40 MG TABLET PO SCH (16:21)
[2019-12-22 19:03] VITALS: BP 103/59
[2019-12-22 20:30] VITALS: BP 115/76
[2019-12-23 00:19] VITALS: BP 102/63
[2019-12-23] MEDS: OXYcodone IR 5MG TABLET PO PRN ×4 (01:58→21:44)
[2019-12-23] MEDS: PIPERACILLIN/TAZO/PMX 3.375GM 50 ML IV SCH ×5 (04:14→22:46)
[2019-12-23 07:50] VITALS: BP 106/75
[2019-12-23] MEDS: AMIODARONE 200 MG TABLET PO SCH (08:04)
[2019-12-23] MEDS: POTASSIUM CHLORIDE 20 MEQ TAB.ER.PRT PO SCH (08:05)
[2019-12-23] MEDS: CARVEDILOL 12.5 MG TABLET PO SCH ×2 (08:05→21:44)
[2019-12-23] MEDS: SPIRONOLACTONE 25 MG TABLET PO SCH (08:05)
[2019-12-23] MEDS: FUROSEMIDE 40 MG TABLET PO SCH ×2 (08:06→16:50)
[2019-12-23] MEDS: SODIUM CHLORIDE FLUSH 10ML SYR IVF SCH ×2 (08:06→22:30)
[2019-12-23] MEDS: POLYETHYLENE GLYCOL 17 GM PACKET PO SCH (08:06)
[2019-12-23] MEDS: SENNA/DOCUSATE TABLET PO SCH (08:07)
[2019-12-23] MEDS: LISINOPRIL 10 MG TABLET PO SCH (08:07)
[2019-12-23 14:30] VITALS: BP 93/68
[2019-12-24 01:54] VITALS: BP 97/62
[2019-12-24] MEDS: OXYcodone IR 5MG TABLET PO PRN ×2 (03:06→08:49)
[2019-12-24] MEDS: PIPERACILLIN/TAZO/PMX 3.375GM 50 ML IV SCH ×3 (04:08→11:25)
[2019-12-24] MEDS: FUROSEMIDE 40 MG TABLET PO SCH (08:00)
[2019-12-24 08:08] VITALS: BP 99/66
[2019-12-24] MEDS: POTASSIUM CHLORIDE 20 MEQ TAB.ER.PRT PO SCH (08:48)
[2019-12-24] MEDS: LISINOPRIL 10 MG TABLET PO SCH (09:00)
[2019-12-24] MEDS: SPIRONOLACTONE 25 MG TABLET PO SCH (09:00)
[2019-12-24] MEDS: SODIUM CHLORIDE FLUSH 10ML SYR IVF SCH (09:00)
[2019-12-24] MEDS: AMIODARONE 200 MG TABLET PO SCH (09:00)
[2019-12-24] MEDS: CARVEDILOL 12.5 MG TABLET PO SCH (09:00)
[2019-12-24] MEDS: SENNA/DOCUSATE TABLET PO SCH (09:00)
[2019-12-24] MEDS: POLYETHYLENE GLYCOL 17 GM PACKET PO SCH (09:00)
[2019-12-24 09:35] LABS: BASOPHILS # (AUTO) 0.14 x10^3/uL (0-0.1); BASOPHILS % (AUTO) 1 % (0-1); EOSINOPHILS # (AUTO) 0.16 x10^3/uL (0-0.4); EOSINOPHILS % (AUTO) 1 % (1-7); LYMPHOCYTES # (AUTO) 3.17 x10^3/uL (1-3.4); LYMPHOCYTES % (AUTO) 25 % (22-44); MD NO; MEAN CORPUSCULAR HGB CONC 32.2 g/dL (33.2-36.2); MEAN CORPUSCULAR VOLUME 90.2 fL (81-97); MEAN PLATELET VOLUME 8.2 fL (7.4-10.4); MONOCYTES # (AUTO) 0.83 x10^3/uL (0.2-0.8); MONOCYTES % (AUTO) 7 % (2-9); NEUTROPHILS # (AUTO) 8.23 x10^3/uL (1.8-6.8); NEUTROPHILS % (AUTO) 66 % (42-75); PLATELET COUNT 304 x10^3/uL (130-400); RED BLOOD COUNT 4.53 x10^6/uL (4.38-5.82)
[2019-12-24 09:47] LABS: ALBUMIN 2.7 g/dL (3.4-5.0); ANION GAP 8 mmol/L (5-15); CALCIUM 8.4 mg/dL (8.5-10.1); CHLORIDE 106 mmol/L (98-107); CREATININE 1.33 mg/dL (0.7-1.3)
[2019-12-24 11:26] VITALS: BP 102/76
[2019-12-24] MEDS ORDERED: AMIO200T42 PO (13:22)
[2019-12-24] MEDS ORDERED: SULF1TAB24 PO (13:22)
[2019-12-24] MEDS ORDERED: FURO40TA6 PO (13:22)
[2019-12-24] MEDS ORDERED: APIX5TAB PO (13:22)
[2019-12-24] MEDS ORDERED: CARV6.252 PO (13:22)
[2019-12-24] MEDS ORDERED: ALBU18HF INH ×3 (13:22→14:34)
[2019-12-24] MEDS ORDERED: SPIR25TA PO (13:23)
[2019-12-24] MEDS ORDERED: LISI30TA4 PO (13:24)
== END 2019-12-24 14:45 | disposition home or self-care (01) | DRG 392 ==
LOC: ED 15:52 → EDIP 16:33 → 3N 17:54
PROVIDERS: ADMIT Internal Medicine; ATTEND Family Medicine
DX: R10.9 Unspecified abdominal pain (principal); R65.10 Systemic inflammatory response syndrome (SIRS) of non-infectious origin without acute organ dysfunction; I42.8 Other cardiomyopathies; E46 Unspecified protein-calorie malnutrition; I48.20 Chronic atrial fibrillation, unspecified; N44.00 Torsion of testis, unspecified; I11.0 Hypertensive heart disease with heart failure; I50.9 Heart failure, unspecified; E03.9 Hypothyroidism, unspecified; J45.909 Unspecified asthma, uncomplicated; R56.9 Unspecified convulsions; Z66 Do not resuscitate; E66.01 Morbid (severe) obesity due to excess calories; F41.9 Anxiety disorder, unspecified; R74.0 Nonspecific elevation of levels of transaminase and lactic acid dehydrogenase [LDH]; K59.00 Constipation, unspecified; F12.90 Cannabis use, unspecified, uncomplicated; Z82.49 Family history of ischemic heart disease and other diseases of the circulatory system; Z90.49 Acquired absence of other specified parts of digestive tract
CPT/HCPCS: 36415; 74177; 80053; 80069; 81003; 83605; 83690; 83735; 84439; 84443; 84481; 85025; 85610; 85730; 87040; 93005; 96361; 96365; 96375; 96376; G0378; J1940; J2405; J2543; Q0162; Q9967; J2270; J7030

== ENCOUNTER 2019-12-27 13:39 | Inpatient (IN) | payer MEDICAID ==
[~2019-12-27] VITALS: Ht 180.3 cm; Wt 155.2 kg
[~2019-12-27 13:39] MED LIST changes: +SULF1TAB24 PO
[2019-12-27] MEDS ORDERED: SODIUM CHLORIDE FLUSH 10ML SYR IVF ONE ×2 (14:30→15:00)
[2019-12-27] MEDS ORDERED: MORPHINE SULFATE 4 MG/ML, 1ML ONE (14:45)
[2019-12-27] MEDS ORDERED: ONDANSETRON 2MG/ML, 2ML ONE (14:46)
[2019-12-27] MEDS ORDERED: PIPERACILLIN/TAZO/PMX 3.375GM 50 ML ONE (14:49)
[2019-12-27] MEDS ORDERED: PIPERACILLIN/TAZO/PMX 3.375GM 50 ML IV ONE (15:00)
[2019-12-27] MEDS ORDERED: VANCOMYCIN 2,500 MG in SODIUM CHLORIDE 0.9% 500 ML IV ONE (15:00)
[2019-12-27] MEDS ORDERED: MORPHINE SULFATE 4 MG/ML, 1ML IVPush PRN (15:00)
[2019-12-27] MEDS ORDERED: VANCOMYCIN PER PHARMACY MC PRN ×2 (15:00→19:30)
[2019-12-27] MEDS ORDERED: ONDANSETRON 2MG/ML, 2ML IVPush ONE (15:00)
[2019-12-27 15:04] LABS: ALBUMIN 3.2 g/dL (3.4-5.0); ANION GAP 9 mmol/L (5-15); CALCIUM 8.5 mg/dL (8.5-10.1); CHLORIDE 110 mmol/L (98-107)
[2019-12-27 15:06] LABS: BASOPHILS # (AUTO) 0.08 x10^3/uL (0-0.1); BASOPHILS % (AUTO) 1 % (0-1); EOSINOPHILS # (AUTO) 0.04 x10^3/uL (0-0.4); EOSINOPHILS % (AUTO) 0 % (1-7); LYMPHOCYTES # (AUTO) 3.11 x10^3/uL (1-3.4); LYMPHOCYTES % (AUTO) 22 % (22-44); MD NO; MEAN CORPUSCULAR HEMOGLOBIN 28.6 pg (27.5-34.5); MEAN CORPUSCULAR HGB CONC 32.2 g/dL (33.2-36.2); MEAN CORPUSCULAR VOLUME 88.9 fL (81-97); MEAN PLATELET VOLUME 7.9 fL (7.4-10.4); MONOCYTES # (AUTO) 1.13 x10^3/uL (0.2-0.8); MONOCYTES % (AUTO) 8 % (2-9); NEUTROPHILS # (AUTO) 9.52 x10^3/uL (1.8-6.8); NEUTROPHILS % (AUTO) 69 % (42-75); PLATELET COUNT 390 x10^3/uL (130-400); RED BLOOD COUNT 4.53 x10^6/uL (4.38-5.82); RED CELL DISTRIBUTION WIDTH 16.4 % (9.4-14.8)
--- NOTE | 2019-12-27 15:07 | NUR ---
PT CAME IN CO OF SOB, DISTENDED ABD, WEEPING INCSIONS (FROM TESTICLE AND GALLBLADDER REMOVAL). PT SAYS "I CAN EVEN WALK 3 FEET WITHOUT GETTING SOB. SOMETIMES I URINATE MYSELF AND DONT EVEN NOTICE." PT DENIES METH AND IV DRUG USE EKG COMPLETE, LABS DRAWN, UA SENT PT CONNECTED TO CARIDAC MONITOR AND PULSE OX. PT MEDICATED PER NOV
[2019-12-27 15:10] LABS: ALANINE AMINOTRANSFERASE 77 U/L (12-78); ALKALINE PHOSPHATASE 69 U/L (45-117); BILIRUBIN,TOTAL 1.4 mg/dL (0.2-1.0); CREATININE 1.28 mg/dL (0.7-1.3)
[2019-12-27 15:12] LABS: TROPONIN I 0.288 ng/mL (0.000-0.045)
--- NOTE | 2019-12-27 15:12 | NUR ---
CRITICAL LAB VALUE REPORTED TO PROVIDER
[2019-12-27 15:13] LABS: INTERNATIONAL NORMALIZED RATIO 1.38 (0.93-1.1); PROTHROMBIN TIME 14.7 Seconds (9.6-11.5)
[2019-12-27 15:17] LABS: MICROSCOPIC AUTO
[2019-12-27 15:29] LABS: CULTURE INDICATED? NO
[2019-12-27] MEDS ORDERED: OMNIPAQUE 350 MG/ML, 100ML BOTTLE ONE (16:00)
--- NOTE | 2019-12-27 16:31 | NUR ---
PT RESTING IN [facility]. WATCHING TV. NAD
--- NOTE | 2019-12-27 17:59 | NUR ---
PT TO BE ADMITTED. PT EDUCATED ON PLAN OF CARE. PT GIVEN WASH CLOTH TO CLEAN HIMSELF UP
[2019-12-27] MEDS ORDERED: LABETALOL 5MG/ML, 20ML IVPush PRN (19:00)
[2019-12-27 19:27] VITALS: BP 122/83
[2019-12-27] MEDS ORDERED: FUROSEMIDE 20 MG/2 ML IV SCH (20:00)
[2019-12-27] MEDS ORDERED: PHARMACOKINETIC CONSULTATION MC ONE (20:00)
[2019-12-27] MEDS ORDERED: PHARMACOKINETIC MONITORING MC PRN (20:00)
[2019-12-27 20:06] LABS: TROPONIN I 0.261 ng/mL (0.000-0.045)
[2019-12-27] MEDS: TEMPLATE NON-FORMULARY MED. (Albuterol Sulfate (Ventolin Hfa) 90 MCG) INH SCH ×2 (21:00→21:40)
[2019-12-27] MEDS: PIPERACILLIN/TAZO/PMX 3.375GM 50 ML IV SCH (22:45)
[2019-12-27] MEDS: APIXABAN 5 MG TABLET PO SCH (22:46)
[2019-12-27] MEDS: CARVEDILOL 6.25 MG TABLET PO SCH (22:46)
[2019-12-27] MEDS: ATORVASTATIN 40 MG TABLET PO SCH (22:46)
[2019-12-27 23:26] LABS: MICROSCOPIC AUTO
[2019-12-27 23:29] LABS: CHLORIDE,URINE RANDOM 87 mmol/L; CULTURE INDICATED? NO; POTASSIUM,URINE RANDOM 45 mmol/L; SODIUM,URINE RANDOM 88 mmol/L
[2019-12-28 01:17] LABS: TROPONIN I 0.257 ng/mL (0.000-0.045)
[2019-12-28] MEDS: LORazepam 2 MG/ML, 1ML IVPush PRN ×3 (02:32→22:04)
[2019-12-28 03:00] VITALS: BP 84/53
[2019-12-28] MEDS ORDERED: VANCOMYCIN 2,200 MG in SODIUM CHLORIDE 0.9% 500 ML IV SCH (04:00)
[2019-12-28 04:49] LABS: BASOPHILS # (AUTO) 0.07 x10^3/uL (0-0.1); BASOPHILS % (AUTO) 1 % (0-1); EOSINOPHILS # (AUTO) 0.11 x10^3/uL (0-0.4); EOSINOPHILS % (AUTO) 1 % (1-7); LYMPHOCYTES # (AUTO) 2.53 x10^3/uL (1-3.4); LYMPHOCYTES % (AUTO) 26 % (22-44); MD NO; MEAN CORPUSCULAR HEMOGLOBIN 28.7 pg (27.5-34.5); MEAN CORPUSCULAR HGB CONC 32.3 g/dL (33.2-36.2); MEAN CORPUSCULAR VOLUME 88.8 fL (81-97); MONOCYTES # (AUTO) 0.77 x10^3/uL (0.2-0.8); MONOCYTES % (AUTO) 8 % (2-9); NEUTROPHILS # (AUTO) 6.37 x10^3/uL (1.8-6.8); NEUTROPHILS % (AUTO) 65 % (42-75); PLATELET COUNT 320 x10^3/uL (130-400); RED CELL DISTRIBUTION WIDTH 16.3 % (9.4-14.8)
[2019-12-28] MEDS: PIPERACILLIN/TAZO/PMX 3.375GM 50 ML IV SCH ×4 (05:00→22:04)
[2019-12-28 05:01] LABS: ANION GAP 5 mmol/L (5-15); CALCIUM 8.4 mg/dL (8.5-10.1); CHLORIDE 104 mmol/L (98-107)
[2019-12-28 05:06] LABS: ALANINE AMINOTRANSFERASE 71 U/L (12-78); ALKALINE PHOSPHATASE 72 U/L (45-117); BILIRUBIN,TOTAL 1.2 mg/dL (0.2-1.0); CHOL/HDL RATIO 5.6; CHOLESTEROL, TOTAL 101 mg/dL (140-239); CREATININE 1.45 mg/dL (0.7-1.3); HDL CHOL % 18 % (26-37); HDL CHOLESTEROL (DIRECT) 18 mg/dL (40-60); LDL CHOLESTEROL,CALCULATED 60 mg/dL (54-169); LDL/HDL RATIO 3.3 (0.5-3.0); TOTAL PROTEIN 6.7 g/dL (6.4-8.2); TRIGLYCERIDES 117 mg/dL (50-200); VLDL CHOLESTEROL 23 mg/dL (0-25)
[2019-12-28 06:10] VITALS: BP 97/57
[2019-12-28] MEDS: LISINOPRIL 10 MG TABLET PO SCH (07:54)
[2019-12-28] MEDS: CARVEDILOL 6.25 MG TABLET PO SCH ×2 (07:56→22:04)
[2019-12-28] MEDS: SENNA/DOCUSATE TABLET PO SCH (07:57)
[2019-12-28] MEDS ORDERED: POTASSIUM CHLORIDE 20 MEQ TAB.ER.PRT PO SCH (08:00)
[2019-12-28] MEDS: AMIODARONE 200 MG TABLET PO SCH (08:15)
[2019-12-28] MEDS: TEMPLATE NON-FORMULARY MED. (Albuterol Sulfate (Ventolin Hfa) 90 MCG) INH SCH (08:15)
[2019-12-28] MEDS: APIXABAN 5 MG TABLET PO SCH ×2 (08:15→22:04)
[2019-12-28 08:18] VITALS: BP 95/59
[2019-12-28] MEDS ORDERED: FUROSEMIDE 20 MG TABLET PO SCH (09:00)
[2019-12-28] MEDS ORDERED: SPIRONOLACTONE 25 MG TABLET PO SCH (09:00)
[2019-12-28] MEDS ORDERED: VANCOMYCIN PMX 1GM/200ML 200 ML IV SCH (09:00)
[2019-12-28 13:16] VITALS: BP 117/74
[2019-12-28 19:49] VITALS: BP 118/64
[2019-12-28] MEDS: ATORVASTATIN 40 MG TABLET PO SCH (22:04)
[2019-12-28] MEDS: VANCOMYCIN 2,200 MG in SODIUM CHLORIDE 0.9% 500 ML IV SCH (23:45)
[2019-12-29 01:20] VITALS: BP 113/83
[2019-12-29] MEDS: PIPERACILLIN/TAZO/PMX 3.375GM 50 ML IV SCH ×4 (04:07→22:33)
[2019-12-29 06:52] LABS: AMPHETAMINE SCREEN, URINE Negative (Negative); BARBITURATE SCREEN, URINE Negative (Negative); BENZODIAZEPINE SCREEN, URINE Negative (Negative); CANNABINOID SCREEN, URINE Negative (Negative); COCAINE SCREEN, URINE Negative (Negative); METHADONE SCREEN, URINE Negative (Negative); OPIATE SCREEN, URINE Negative (Negative)
[2019-12-29 08:02] LABS: ANION GAP 8 mmol/L (5-15); CALCIUM 8.9 mg/dL (8.5-10.1); CHLORIDE 106 mmol/L (98-107); CREATININE 1.25 mg/dL (0.7-1.3)
[2019-12-29 08:35] VITALS: BP 108/78
[2019-12-29 10:20] VITALS: BP 124/85
[2019-12-29] MEDS: LISINOPRIL 10 MG TABLET PO SCH (10:21)
[2019-12-29] MEDS: TEMPLATE NON-FORMULARY MED. (Albuterol Sulfate (Ventolin Hfa) 90 MCG) INH SCH ×2 (10:21→20:42)
[2019-12-29] MEDS: AMIODARONE 200 MG TABLET PO SCH (10:21)
[2019-12-29] MEDS: APIXABAN 5 MG TABLET PO SCH ×2 (10:21→20:41)
[2019-12-29] MEDS: SENNA/DOCUSATE TABLET PO SCH (10:21)
[2019-12-29 10:31] LABS: ALBUMIN 3.2 g/dL (3.4-5.0); BILIRUBIN, DIRECT 0.5 mg/dL (0.1-0.2)
[2019-12-29 10:33] LABS: BILIRUBIN,INDIRECT 0.6 mg/dL (0.0-2.0); BILIRUBIN,TOTAL 1.1 mg/dL (0.2-1.0); TOTAL PROTEIN 7.2 g/dL (6.4-8.2)
[2019-12-29] MEDS: CARVEDILOL 6.25 MG TABLET PO SCH ×2 (10:35→20:42)
[2019-12-29] MEDS ORDERED: FENTANYL PF 100 MCG/2ML ONE (15:03)
[2019-12-29] MEDS ORDERED: PHENYLEPHRINE 10 MG/ML ONE (15:12)
[2019-12-29] MEDS ORDERED: NALOXONE 0.4 MG/ML, 1ML ONE (15:12)
[2019-12-29] MEDS ORDERED: DEXAMETHASONE 4 MG/ML, 1ML ONE (15:54)
[2019-12-29] MEDS ORDERED: ONDANSETRON 2MG/ML, 2ML ONE (15:54)
[2019-12-29] MEDS ORDERED: PROPOFOL 10 MG/ML, 20ML ONE (15:54)
[2019-12-29] MEDS ORDERED: OMNIPAQUE 350 MG/ML, 50 ML BOTTLE ONE (16:37)
[2019-12-29 17:20] VITALS: BP 98/65
[2019-12-29] MEDS: OXYcodone IR 5MG TABLET PO PRN ×2 (20:11→20:45)
[2019-12-29 20:28] VITALS: BP 98/61
[2019-12-29] MEDS: VANCOMYCIN 2,200 MG in SODIUM CHLORIDE 0.9% 500 ML IV SCH (20:38)
[2019-12-29] MEDS: ATORVASTATIN 40 MG TABLET PO SCH (20:41)
[2019-12-30 01:57] VITALS: BP 102/66
[2019-12-30] MEDS: OXYcodone IR 5MG TABLET PO PRN ×3 (02:22→20:58)
[2019-12-30] MEDS: PIPERACILLIN/TAZO/PMX 3.375GM 50 ML IV SCH ×4 (04:01→20:59)
[2019-12-30] MEDS: ACETAMINOPHEN 325 MG TABLET PO PRN (04:07)
[2019-12-30 05:07] LABS: BASOPHILS # (AUTO) 0.05 x10^3/uL (0-0.1); BASOPHILS % (AUTO) 1 % (0-1); EOSINOPHILS # (AUTO) 0.13 x10^3/uL (0-0.4); EOSINOPHILS % (AUTO) 1 % (1-7); LYMPHOCYTES # (AUTO) 2.31 x10^3/uL (1-3.4); LYMPHOCYTES % (AUTO) 25 % (22-44); MD NO; MEAN CORPUSCULAR HEMOGLOBIN 28.3 pg (27.5-34.5); MEAN CORPUSCULAR HGB CONC 31.8 g/dL (33.2-36.2); MEAN CORPUSCULAR VOLUME 89.2 fL (81-97); MEAN PLATELET VOLUME 8.3 fL (7.4-10.4); MONOCYTES # (AUTO) 0.73 x10^3/uL (0.2-0.8); MONOCYTES % (AUTO) 8 % (2-9); NEUTROPHILS # (AUTO) 6.07 x10^3/uL (1.8-6.8); NEUTROPHILS % (AUTO) 65 % (42-75); PLATELET COUNT 329 x10^3/uL (130-400); RED BLOOD COUNT 4.37 x10^6/uL (4.38-5.82); RED CELL DISTRIBUTION WIDTH 15.9 % (9.4-14.8)
[2019-12-30 05:16] LABS: CHLORIDE 109 mmol/L (98-107)
[2019-12-30 05:24] LABS: ALANINE AMINOTRANSFERASE 85 U/L (12-78); ALBUMIN 2.8 g/dL (3.4-5.0); ALKALINE PHOSPHATASE 70 U/L (45-117); ANION GAP 6 mmol/L (5-15); CALCIUM 8.4 mg/dL (8.5-10.1); CREATININE 1.19 mg/dL (0.7-1.3); TOTAL PROTEIN 6.5 g/dL (6.4-8.2)
[2019-12-30 07:30] VITALS: BP 90/54
[2019-12-30] MEDS: APIXABAN 5 MG TABLET PO SCH ×2 (09:34→20:59)
[2019-12-30] MEDS: SENNA/DOCUSATE TABLET PO SCH (09:34)
[2019-12-30] MEDS: TEMPLATE NON-FORMULARY MED. (Albuterol Sulfate (Ventolin Hfa) 90 MCG) INH SCH ×2 (09:34→20:00)
[2019-12-30] MEDS: LISINOPRIL 10 MG TABLET PO SCH (09:34)
[2019-12-30] MEDS: AMIODARONE 200 MG TABLET PO SCH (09:34)
[2019-12-30] MEDS: CARVEDILOL 6.25 MG TABLET PO SCH ×2 (10:19→20:58)
[2019-12-30] MEDS ORDERED: REGADENOSON 0.4 MG/5 ML SYRINGE ONE (12:01)
[2019-12-30] MEDS: VANCOMYCIN 2,200 MG in SODIUM CHLORIDE 0.9% 500 ML IV SCH (12:50)
[2019-12-30 14:50] VITALS: BP 99/66
[2019-12-30 18:41] VITALS: BP 111/55
[2019-12-30] MEDS ORDERED: ALBUTEROL SULFATE 2.5 MG/3 ML ONE (20:03)
[2019-12-30] MEDS ORDERED: ALBUTEROL SULFATE 2.5 MG/3 ML NPPB PRN (20:30)
[2019-12-30] MEDS: ATORVASTATIN 40 MG TABLET PO SCH (20:57)
[2019-12-30 21:12] VITALS: BP 105/74
[2019-12-31] MEDS: OXYcodone IR 5MG TABLET PO PRN ×4 (01:17→20:03)
[2019-12-31 01:21] VITALS: BP 115/83
[2019-12-31] MEDS: PIPERACILLIN/TAZO/PMX 3.375GM 50 ML IV SCH ×4 (03:22→22:00)
[2019-12-31 05:30] LABS: BASOPHILS # (AUTO) 0.02 x10^3/uL (0-0.1); BASOPHILS % (AUTO) 0 % (0-1); EOSINOPHILS # (AUTO) 0.13 x10^3/uL (0-0.4); EOSINOPHILS % (AUTO) 1 % (1-7); LYMPHOCYTES # (AUTO) 1.92 x10^3/uL (1-3.4); LYMPHOCYTES % (AUTO) 17 % (22-44); MD NO; MEAN CORPUSCULAR HEMOGLOBIN 28.6 pg (27.5-34.5); MEAN CORPUSCULAR VOLUME 89.4 fL (81-97); MEAN PLATELET VOLUME 8.5 fL (7.4-10.4); MONOCYTES # (AUTO) 0.54 x10^3/uL (0.2-0.8); MONOCYTES % (AUTO) 5 % (2-9); NEUTROPHILS % (AUTO) 77 % (42-75); PLATELET COUNT 325 x10^3/uL (130-400); RED BLOOD COUNT 4.45 x10^6/uL (4.38-5.82); RED CELL DISTRIBUTION WIDTH 16.9 % (9.4-14.8)
[2019-12-31 05:34] LABS: ALANINE AMINOTRANSFERASE 87 U/L (12-78); ALBUMIN 2.9 g/dL (3.4-5.0); ANION GAP 4 mmol/L (5-15); CALCIUM 8.5 mg/dL (8.5-10.1); CHLORIDE 107 mmol/L (98-107); CREATININE 1.31 mg/dL (0.7-1.3)
[2019-12-31 05:36] LABS: ALKALINE PHOSPHATASE 82 U/L (45-117); BILIRUBIN,TOTAL 0.8 mg/dL (0.2-1.0); TOTAL PROTEIN 6.9 g/dL (6.4-8.2); VANCOMYCIN,TROUGH 17.5 mcg/mL (5.0-10.0)
[2019-12-31] MEDS: VANCOMYCIN 2,200 MG in SODIUM CHLORIDE 0.9% 500 ML IV SCH ×2 (05:48→23:00)
[2019-12-31 07:20] VITALS: BP 100/70
[2019-12-31] MEDS: TEMPLATE NON-FORMULARY MED. (Albuterol Sulfate (Ventolin Hfa) 90 MCG) INH SCH ×2 (08:04→20:04)
[2019-12-31] MEDS: SENNA/DOCUSATE TABLET PO SCH (08:04)
[2019-12-31] MEDS: AMIODARONE 200 MG TABLET PO SCH (09:02)
[2019-12-31] MEDS: CARVEDILOL 6.25 MG TABLET PO SCH ×2 (09:02→20:03)
[2019-12-31] MEDS: APIXABAN 5 MG TABLET PO SCH ×2 (09:02→20:04)
[2019-12-31] MEDS: LISINOPRIL 10 MG TABLET PO SCH (09:02)
[2019-12-31] MEDS ORDERED: OMNIPAQUE 350 MG/ML, 100ML BOTTLE ONE (11:35)
[2019-12-31 13:50] VITALS: BP 114/78
[2019-12-31 18:22] VITALS: BP 110/76
[2019-12-31 19:14] VITALS: BP 101/70
[2019-12-31] MEDS: ATORVASTATIN 40 MG TABLET PO SCH (20:03)
[2019-12-31 22:54] VITALS: BP 123/72
[2020-01-01] MEDS: OXYcodone IR 5MG TABLET PO PRN ×3 (00:01→12:11)
[2020-01-01 00:21] VITALS: BP 106/62
[2020-01-01] MEDS: PIPERACILLIN/TAZO/PMX 3.375GM 50 ML IV SCH ×2 (04:00→10:02)
[2020-01-01 04:30] LABS: BASOPHILS # (AUTO) 0.04 x10^3/uL (0-0.1); BASOPHILS % (AUTO) 0 % (0-1); EOSINOPHILS # (AUTO) 0.08 x10^3/uL (0-0.4); EOSINOPHILS % (AUTO) 1 % (1-7); LYMPHOCYTES # (AUTO) 2.14 x10^3/uL (1-3.4); LYMPHOCYTES % (AUTO) 17 % (22-44); MD NO; MEAN CORPUSCULAR HEMOGLOBIN 28.4 pg (27.5-34.5); MEAN CORPUSCULAR HGB CONC 31.9 g/dL (33.2-36.2); MEAN CORPUSCULAR VOLUME 89.2 fL (81-97); MEAN PLATELET VOLUME 8.6 fL (7.4-10.4); MONOCYTES # (AUTO) 0.68 x10^3/uL (0.2-0.8); MONOCYTES % (AUTO) 5 % (2-9); NEUTROPHILS # (AUTO) 9.75 x10^3/uL (1.8-6.8); NEUTROPHILS % (AUTO) 77 % (42-75); PLATELET COUNT 363 x10^3/uL (130-400); RED BLOOD COUNT 4.57 x10^6/uL (4.38-5.82)
[2020-01-01 04:32] LABS: ALANINE AMINOTRANSFERASE 82 U/L (12-78); ALBUMIN 2.9 g/dL (3.4-5.0); ANION GAP 8 mmol/L (5-15); CALCIUM 8.4 mg/dL (8.5-10.1); CHLORIDE 109 mmol/L (98-107); CREATININE 1.21 mg/dL (0.7-1.3)
[2020-01-01 04:34] LABS: ALKALINE PHOSPHATASE 87 U/L (45-117); BILIRUBIN,TOTAL 0.9 mg/dL (0.2-1.0); TOTAL PROTEIN 6.8 g/dL (6.4-8.2)
[2020-01-01 08:04] VITALS: BP 132/80
[2020-01-01] MEDS: CARVEDILOL 6.25 MG TABLET PO SCH ×2 (08:29→20:58)
[2020-01-01] MEDS: SENNA/DOCUSATE TABLET PO SCH (08:29)
[2020-01-01] MEDS: LISINOPRIL 10 MG TABLET PO SCH (08:29)
[2020-01-01] MEDS: AMIODARONE 200 MG TABLET PO SCH (08:29)
[2020-01-01] MEDS: POTASSIUM CHLORIDE 20 MEQ TAB.ER.PRT PO SCH ×2 (08:29→16:07)
[2020-01-01] MEDS: APIXABAN 5 MG TABLET PO SCH ×2 (08:29→20:58)
[2020-01-01] MEDS: FUROSEMIDE 40 MG/4 ML IV SCH ×2 (08:29→16:06)
[2020-01-01] MEDS: TEMPLATE NON-FORMULARY MED. (Albuterol Sulfate (Ventolin Hfa) 90 MCG) INH SCH ×2 (09:00→21:00)
[2020-01-01 12:43] VITALS: BP 104/69
[2020-01-01] MEDS: ACETAMINOPHEN 325 MG TABLET PO PRN (15:49)
[2020-01-01 18:51] VITALS: BP 100/68
[2020-01-01] MEDS: ATORVASTATIN 40 MG TABLET PO SCH (20:58)
[2020-01-01] MEDS: TRAZODONE 50MG TABLET PO PRN (20:58)
[2020-01-02 00:22] VITALS: BP 121/83
[2020-01-02] MEDS: ACETAMINOPHEN 325 MG TABLET PO PRN ×4 (00:37→20:35)
[2020-01-02] MEDS: ONDANSETRON 2MG/ML, 2ML IVPush PRN (03:35)
[2020-01-02 05:42] LABS: BASOPHILS # (AUTO) 0.05 x10^3/uL (0-0.1); BASOPHILS % (AUTO) 1 % (0-1); EOSINOPHILS # (AUTO) 0.09 x10^3/uL (0-0.4); EOSINOPHILS % (AUTO) 1 % (1-7); LYMPHOCYTES # (AUTO) 2.05 x10^3/uL (1-3.4); LYMPHOCYTES % (AUTO) 19 % (22-44); MD NO; MEAN CORPUSCULAR HEMOGLOBIN 28.4 pg (27.5-34.5); MEAN CORPUSCULAR HGB CONC 31.9 g/dL (33.2-36.2); MEAN CORPUSCULAR VOLUME 88.8 fL (81-97); MEAN PLATELET VOLUME 8.7 fL (7.4-10.4); MONOCYTES # (AUTO) 0.67 x10^3/uL (0.2-0.8); MONOCYTES % (AUTO) 6 % (2-9); NEUTROPHILS # (AUTO) 7.87 x10^3/uL (1.8-6.8); NEUTROPHILS % (AUTO) 73 % (42-75); PLATELET COUNT 322 x10^3/uL (130-400); RED BLOOD COUNT 4.66 x10^6/uL (4.38-5.82); RED CELL DISTRIBUTION WIDTH 16.3 % (9.4-14.8)
[2020-01-02 05:52] LABS: ALANINE AMINOTRANSFERASE 76 U/L (12-78); ANION GAP 8 mmol/L (5-15); CALCIUM 8.9 mg/dL (8.5-10.1); CHLORIDE 108 mmol/L (98-107); CREATININE 1.29 mg/dL (0.7-1.3)
[2020-01-02 05:54] LABS: ALKALINE PHOSPHATASE 92 U/L (45-117); BILIRUBIN,TOTAL 0.9 mg/dL (0.2-1.0); TOTAL PROTEIN 6.9 g/dL (6.4-8.2)
[2020-01-02 07:50] VITALS: BP 109/81
[2020-01-02] MEDS: APIXABAN 5 MG TABLET PO SCH ×2 (08:19→20:40)
[2020-01-02] MEDS: SENNA/DOCUSATE TABLET PO SCH (08:19)
[2020-01-02] MEDS: POTASSIUM CHLORIDE 20 MEQ TAB.ER.PRT PO SCH ×2 (08:19→17:00)
[2020-01-02] MEDS: LISINOPRIL 10 MG TABLET PO SCH (08:19)
[2020-01-02] MEDS: FUROSEMIDE 40 MG/4 ML IV SCH ×2 (08:19→17:00)
[2020-01-02] MEDS: AMIODARONE 200 MG TABLET PO SCH (08:19)
[2020-01-02] MEDS: TEMPLATE NON-FORMULARY MED. (Albuterol Sulfate (Ventolin Hfa) 90 MCG) INH SCH ×2 (08:19→21:00)
[2020-01-02] MEDS: CARVEDILOL 6.25 MG TABLET PO SCH ×2 (08:19→20:39)
[2020-01-02 15:36] VITALS: BP 106/73
[2020-01-02 18:44] VITALS: BP 102/73
[2020-01-02] MEDS: TRAZODONE 50MG TABLET PO PRN (20:32)
[2020-01-02] MEDS: ATORVASTATIN 40 MG TABLET PO SCH (20:40)
[2020-01-03 00:45] VITALS: BP 129/84
[2020-01-03] MEDS: ACETAMINOPHEN 325 MG TABLET PO PRN ×4 (02:05→20:30)
[2020-01-03 05:30] LABS: BASOPHILS # (AUTO) 0.04 x10^3/uL (0-0.1); BASOPHILS % (AUTO) 0 % (0-1); EOSINOPHILS % (AUTO) 1 % (1-7); LYMPHOCYTES # (AUTO) 1.82 x10^3/uL (1-3.4); LYMPHOCYTES % (AUTO) 16 % (22-44); MD NO; MEAN CORPUSCULAR HEMOGLOBIN 28.5 pg (27.5-34.5); MEAN CORPUSCULAR HGB CONC 32.4 g/dL (33.2-36.2); MEAN CORPUSCULAR VOLUME 87.9 fL (81-97); MEAN PLATELET VOLUME 8.7 fL (7.4-10.4); MONOCYTES % (AUTO) 7 % (2-9); NEUTROPHILS # (AUTO) 8.32 x10^3/uL (1.8-6.8); NEUTROPHILS % (AUTO) 75 % (42-75); PLATELET COUNT 346 x10^3/uL (130-400); RED BLOOD COUNT 4.68 x10^6/uL (4.38-5.82); RED CELL DISTRIBUTION WIDTH 16.5 % (9.4-14.8)
[2020-01-03 05:36] LABS: CALCIUM 8.9 mg/dL (8.5-10.1); CHLORIDE 107 mmol/L (98-107)
[2020-01-03 05:39] VITALS: BP 116/83
[2020-01-03 05:42] LABS: ALANINE AMINOTRANSFERASE 64 U/L (12-78); ALKALINE PHOSPHATASE 95 U/L (45-117); ANION GAP 6 mmol/L (5-15); BILIRUBIN,TOTAL 1.1 mg/dL (0.2-1.0); CREATININE 1.26 mg/dL (0.7-1.3)
[2020-01-03 07:47] VITALS: BP 108/72
[2020-01-03] MEDS: APIXABAN 5 MG TABLET PO SCH ×2 (08:01→20:29)
[2020-01-03] MEDS: AMIODARONE 200 MG TABLET PO SCH (08:02)
[2020-01-03] MEDS: SENNA/DOCUSATE TABLET PO SCH (08:02)
[2020-01-03] MEDS: LISINOPRIL 10 MG TABLET PO SCH (08:02)
[2020-01-03] MEDS: FUROSEMIDE 40 MG/4 ML IV SCH ×2 (08:02→16:40)
[2020-01-03] MEDS: CARVEDILOL 6.25 MG TABLET PO SCH ×2 (08:02→20:29)
[2020-01-03] MEDS: POTASSIUM CHLORIDE 20 MEQ TAB.ER.PRT PO SCH ×2 (08:02→16:40)
[2020-01-03] MEDS: TEMPLATE NON-FORMULARY MED. (Albuterol Sulfate (Ventolin Hfa) 90 MCG) INH SCH ×2 (08:41→21:00)
[2020-01-03] MEDS: POLYETHYLENE GLYCOL 17 GM PACKET NG PRN (08:46)
[2020-01-03 16:35] VITALS: BP 96/62
[2020-01-03 20:00] VITALS: BP 105/70
[2020-01-03] MEDS: ATORVASTATIN 40 MG TABLET PO SCH (20:29)
[2020-01-03] MEDS: TRAZODONE 50MG TABLET PO PRN (20:30)
[2020-01-04 00:48] VITALS: BP 108/77
[2020-01-04] MEDS: ACETAMINOPHEN 325 MG TABLET PO PRN ×2 (00:48→21:42)
[2020-01-04] MEDS: OXYcodone IR 5MG TABLET PO PRN ×4 (02:40→20:19)
[2020-01-04] MEDS: ONDANSETRON 2MG/ML, 2ML IVPush PRN ×2 (02:51→09:26)
[2020-01-04] MEDS ORDERED: HYDROmorphone 1 MG/ML, 1ML INJ IV ONE (04:38)
[2020-01-04 05:37] LABS: BASOPHILS # (AUTO) 0.01 x10^3/uL (0-0.1); BASOPHILS % (AUTO) 0 % (0-1); EOSINOPHILS # (AUTO) 0.22 x10^3/uL (0-0.4); EOSINOPHILS % (AUTO) 2 % (1-7); LYMPHOCYTES # (AUTO) 1.98 x10^3/uL (1-3.4); LYMPHOCYTES % (AUTO) 19 % (22-44); MD NO; MEAN CORPUSCULAR HEMOGLOBIN 28.3 pg (27.5-34.5); MEAN CORPUSCULAR VOLUME 88.3 fL (81-97); MEAN PLATELET VOLUME 8.7 fL (7.4-10.4); MONOCYTES # (AUTO) 0.83 x10^3/uL (0.2-0.8); MONOCYTES % (AUTO) 8 % (2-9); NEUTROPHILS # (AUTO) 7.17 x10^3/uL (1.8-6.8); NEUTROPHILS % (AUTO) 70 % (42-75); PLATELET COUNT 346 x10^3/uL (130-400); RED BLOOD COUNT 5.09 x10^6/uL (4.38-5.82); RED CELL DISTRIBUTION WIDTH 16.6 % (9.4-14.8)
[2020-01-04 05:41] LABS: ALBUMIN 2.9 g/dL (3.4-5.0); ANION GAP 7 mmol/L (5-15); CALCIUM 8.9 mg/dL (8.5-10.1); CHLORIDE 107 mmol/L (98-107)
[2020-01-04 05:45] LABS: ALANINE AMINOTRANSFERASE 62 U/L (12-78); ALKALINE PHOSPHATASE 105 U/L (45-117); TOTAL PROTEIN 7.1 g/dL (6.4-8.2)
[2020-01-04 06:30] VITALS: BP 127/85
[2020-01-04] MEDS: TEMPLATE NON-FORMULARY MED. (Albuterol Sulfate (Ventolin Hfa) 90 MCG) INH SCH ×2 (09:00→20:20)
[2020-01-04] MEDS: POTASSIUM CHLORIDE 20 MEQ TAB.ER.PRT PO SCH ×2 (09:26→17:00)
[2020-01-04] MEDS: LISINOPRIL 10 MG TABLET PO SCH (09:26)
[2020-01-04] MEDS: AMIODARONE 200 MG TABLET PO SCH (09:26)
[2020-01-04] MEDS: APIXABAN 5 MG TABLET PO SCH ×2 (09:26→20:19)
[2020-01-04] MEDS: SENNA/DOCUSATE TABLET PO SCH (09:26)
[2020-01-04] MEDS: CARVEDILOL 6.25 MG TABLET PO SCH ×2 (09:27→20:19)
[2020-01-04] MEDS: FUROSEMIDE 40 MG/4 ML IV SCH ×2 (09:32→17:00)
[2020-01-04] MEDS: POLYETHYLENE GLYCOL 17 GM PACKET NG PRN (13:24)
[2020-01-04 13:35] VITALS: BP 118/84
[2020-01-04 19:12] VITALS: BP 100/66
[2020-01-04 20:17] VITALS: BP 105/72
[2020-01-04] MEDS: ATORVASTATIN 40 MG TABLET PO SCH (20:19)
[2020-01-04] MEDS: TRAZODONE 50MG TABLET PO PRN (20:56)
[2020-01-05] MEDS: ONDANSETRON 2MG/ML, 2ML IVPush PRN ×2 (02:20→14:24)
[2020-01-05] MEDS: POLYETHYLENE GLYCOL 17 GM PACKET NG PRN (02:20)
[2020-01-05] MEDS: OXYcodone IR 5MG TABLET PO PRN ×2 (02:21→08:50)
[2020-01-05 02:22] VITALS: BP 101/72
[2020-01-05 05:36] LABS: BASOPHILS # (AUTO) 0.05 x10^3/uL (0-0.1); BASOPHILS % (AUTO) 1 % (0-1); EOSINOPHILS # (AUTO) 0.24 x10^3/uL (0-0.4); EOSINOPHILS % (AUTO) 3 % (1-7); LYMPHOCYTES # (AUTO) 2.36 x10^3/uL (1-3.4); LYMPHOCYTES % (AUTO) 25 % (22-44); MD NO; MEAN CORPUSCULAR HEMOGLOBIN 28.4 pg (27.5-34.5); MEAN CORPUSCULAR HGB CONC 32.2 g/dL (33.2-36.2); MEAN CORPUSCULAR VOLUME 88.2 fL (81-97); MEAN PLATELET VOLUME 8.4 fL (7.4-10.4); MONOCYTES # (AUTO) 0.82 x10^3/uL (0.2-0.8); MONOCYTES % (AUTO) 9 % (2-9); NEUTROPHILS # (AUTO) 6.12 x10^3/uL (1.8-6.8); NEUTROPHILS % (AUTO) 64 % (42-75); PLATELET COUNT 335 x10^3/uL (130-400); RED BLOOD COUNT 4.77 x10^6/uL (4.38-5.82); RED CELL DISTRIBUTION WIDTH 16.5 % (9.4-14.8)
[2020-01-05 05:46] LABS: ALANINE AMINOTRANSFERASE 50 U/L (12-78); ALBUMIN 2.7 g/dL (3.4-5.0); ANION GAP 4 mmol/L (5-15); CALCIUM 8.7 mg/dL (8.5-10.1); CHLORIDE 103 mmol/L (98-107)
[2020-01-05 05:49] LABS: ALKALINE PHOSPHATASE 91 U/L (45-117); TOTAL PROTEIN 6.6 g/dL (6.4-8.2)
[2020-01-05 06:21] VITALS: BP 102/71
[2020-01-05] MEDS ORDERED: MAGNESIUM CITRATE 300ML ORAL SOL ONE (08:42)
[2020-01-05] MEDS: FUROSEMIDE 20 MG TABLET PO SCH ×2 (08:49→20:47)
[2020-01-05] MEDS: SENNA/DOCUSATE TABLET PO SCH (08:49)
[2020-01-05] MEDS: AMIODARONE 200 MG TABLET PO SCH (08:49)
[2020-01-05] MEDS: LISINOPRIL 10 MG TABLET PO SCH (08:50)
[2020-01-05] MEDS: POTASSIUM CHLORIDE 20 MEQ TAB.ER.PRT PO SCH ×2 (08:50→20:48)
[2020-01-05] MEDS: CARVEDILOL 6.25 MG TABLET PO SCH ×2 (08:50→20:47)
[2020-01-05] MEDS: APIXABAN 5 MG TABLET PO SCH ×2 (08:50→20:47)
[2020-01-05] MEDS: TEMPLATE NON-FORMULARY MED. (Albuterol Sulfate (Ventolin Hfa) 90 MCG) INH SCH ×2 (08:50→21:38)
[2020-01-05] MEDS: MAGNESIUM CITRATE 300ML ORAL SOL PO PRN (08:51)
[2020-01-05] MEDS ORDERED: BISACODYL 10 MG SUPP PR PRN (09:00)
[2020-01-05 12:48] VITALS: BP 99/66
[2020-01-05] MEDS: ACETAMINOPHEN 325 MG TABLET PO PRN (14:24)
[2020-01-05 19:24] VITALS: BP 101/62
[2020-01-05] MEDS: ATORVASTATIN 40 MG TABLET PO SCH (20:47)
[2020-01-06] MEDS: OXYcodone IR 5MG TABLET PO PRN ×2 (00:33→22:27)
[2020-01-06 01:09] VITALS: BP 108/74
[2020-01-06] MEDS: MAGNESIUM CITRATE 300ML ORAL SOL PO PRN (05:50)
[2020-01-06 07:18] VITALS: BP 109/76
[2020-01-06] MEDS: AMIODARONE 200 MG TABLET PO SCH (08:06)
[2020-01-06] MEDS: SENNA/DOCUSATE TABLET PO SCH (08:06)
[2020-01-06] MEDS: FUROSEMIDE 20 MG TABLET PO SCH ×3 (08:07→22:21)
[2020-01-06] MEDS: APIXABAN 5 MG TABLET PO SCH ×3 (08:07→22:20)
[2020-01-06] MEDS: LISINOPRIL 10 MG TABLET PO SCH (08:07)
[2020-01-06] MEDS: POTASSIUM CHLORIDE 20 MEQ TAB.ER.PRT PO SCH ×2 (08:07→17:24)
[2020-01-06] MEDS: CARVEDILOL 6.25 MG TABLET PO SCH ×3 (08:07→22:20)
[2020-01-06] MEDS: TEMPLATE NON-FORMULARY MED. (Albuterol Sulfate (Ventolin Hfa) 90 MCG) INH SCH ×3 (08:08→22:21)
[2020-01-06] MEDS: ONDANSETRON 2MG/ML, 2ML IVPush PRN (08:27)
[2020-01-06 08:48] LABS: BASOPHILS # (AUTO) 0.05 x10^3/uL (0-0.1); BASOPHILS % (AUTO) 1 % (0-1); EOSINOPHILS # (AUTO) 0.18 x10^3/uL (0-0.4); EOSINOPHILS % (AUTO) 2 % (1-7); LYMPHOCYTES # (AUTO) 2.22 x10^3/uL (1-3.4); LYMPHOCYTES % (AUTO) 24 % (22-44); MD NO; MEAN CORPUSCULAR HEMOGLOBIN 28.2 pg (27.5-34.5); MEAN CORPUSCULAR HGB CONC 32.1 g/dL (33.2-36.2); MEAN CORPUSCULAR VOLUME 87.9 fL (81-97); MONOCYTES # (AUTO) 0.89 x10^3/uL (0.2-0.8); MONOCYTES % (AUTO) 10 % (2-9); NEUTROPHILS # (AUTO) 6.07 x10^3/uL (1.8-6.8); NEUTROPHILS % (AUTO) 65 % (42-75); PLATELET COUNT 381 x10^3/uL (130-400); RED BLOOD COUNT 4.97 x10^6/uL (4.38-5.82); RED CELL DISTRIBUTION WIDTH 16.4 % (9.4-14.8)
[2020-01-06 08:50] LABS: ALBUMIN 3.1 g/dL (3.4-5.0); ANION GAP 6 mmol/L (5-15); CALCIUM 8.9 mg/dL (8.5-10.1); CHLORIDE 104 mmol/L (98-107)
[2020-01-06 08:54] LABS: ALANINE AMINOTRANSFERASE 51 U/L (12-78); ALKALINE PHOSPHATASE 101 U/L (45-117); BILIRUBIN,TOTAL 0.9 mg/dL (0.2-1.0); CREATININE 1.17 mg/dL (0.7-1.3); TOTAL PROTEIN 7.4 g/dL (6.4-8.2)
[2020-01-06] MEDS: ACETAMINOPHEN 325 MG TABLET PO PRN (11:57)
[2020-01-06 12:12] VITALS: BP 131/71
[2020-01-06 19:45] VITALS: BP 102/61
[2020-01-06] MEDS: ATORVASTATIN 40 MG TABLET PO SCH ×2 (21:20→22:21)
[2020-01-07 01:31] VITALS: BP 110/72
[2020-01-07] MEDS: TRAZODONE 50MG TABLET PO PRN (01:36)
[2020-01-07 07:24] VITALS: BP 108/76
[2020-01-07 08:34] LABS: BASOPHILS # (AUTO) 0.07 x10^3/uL (0-0.1); BASOPHILS % (AUTO) 1 % (0-1); EOSINOPHILS # (AUTO) 0.18 x10^3/uL (0-0.4); EOSINOPHILS % (AUTO) 2 % (1-7); LYMPHOCYTES # (AUTO) 1.96 x10^3/uL (1-3.4); LYMPHOCYTES % (AUTO) 24 % (22-44); MD NO; MEAN CORPUSCULAR HEMOGLOBIN 27.6 pg (27.5-34.5); MEAN CORPUSCULAR HGB CONC 31.4 g/dL (33.2-36.2); MEAN CORPUSCULAR VOLUME 88.1 fL (81-97); MEAN PLATELET VOLUME 7.8 fL (7.4-10.4); MONOCYTES # (AUTO) 0.55 x10^3/uL (0.2-0.8); MONOCYTES % (AUTO) 7 % (2-9); NEUTROPHILS # (AUTO) 5.45 x10^3/uL (1.8-6.8); NEUTROPHILS % (AUTO) 66 % (42-75); PLATELET COUNT 338 x10^3/uL (130-400); RED BLOOD COUNT 5.33 x10^6/uL (4.38-5.82); RED CELL DISTRIBUTION WIDTH 16.3 % (9.4-14.8)
[2020-01-07 08:42] LABS: ANION GAP 7 mmol/L (5-15); CHLORIDE 104 mmol/L (98-107); CREATININE 1.04 mg/dL (0.7-1.3)
[2020-01-07] MEDS: APIXABAN 5 MG TABLET PO SCH ×2 (09:29→20:58)
[2020-01-07] MEDS: SENNA/DOCUSATE TABLET PO SCH (09:29)
[2020-01-07] MEDS: FUROSEMIDE 20 MG TABLET PO SCH ×2 (09:29→20:58)
[2020-01-07] MEDS: CARVEDILOL 6.25 MG TABLET PO SCH ×2 (09:30→20:58)
[2020-01-07] MEDS: TEMPLATE NON-FORMULARY MED. (Albuterol Sulfate (Ventolin Hfa) 90 MCG) INH SCH ×2 (09:30→20:58)
[2020-01-07] MEDS: POTASSIUM CHLORIDE 20 MEQ TAB.ER.PRT PO SCH ×2 (09:30→17:04)
[2020-01-07] MEDS: LISINOPRIL 10 MG TABLET PO SCH (09:30)
[2020-01-07] MEDS: AMIODARONE 200 MG TABLET PO SCH (09:36)
[2020-01-07] MEDS: OXYcodone IR 5MG TABLET PO PRN ×3 (09:37→20:58)
[2020-01-07 13:29] VITALS: BP 108/70
[2020-01-07 18:47] VITALS: BP 116/66
[2020-01-07] MEDS: ATORVASTATIN 40 MG TABLET PO SCH (20:57)
[2020-01-07] MEDS: ONDANSETRON 2MG/ML, 2ML IVPush PRN (21:04)
[2020-01-08 00:47] VITALS: BP 98/61
[2020-01-08] MEDS: OXYcodone IR 5MG TABLET PO PRN ×3 (03:59→22:16)
[2020-01-08 08:40] VITALS: BP 121/73
[2020-01-08] MEDS: LISINOPRIL 10 MG TABLET PO SCH (09:24)
[2020-01-08] MEDS: CARVEDILOL 6.25 MG TABLET PO SCH ×2 (09:25→22:15)
[2020-01-08] MEDS: FUROSEMIDE 20 MG TABLET PO SCH ×2 (09:25→22:15)
[2020-01-08] MEDS: POTASSIUM CHLORIDE 20 MEQ TAB.ER.PRT PO SCH ×3 (09:26→22:19)
[2020-01-08] MEDS: TEMPLATE NON-FORMULARY MED. (Albuterol Sulfate (Ventolin Hfa) 90 MCG) INH SCH ×2 (09:26→22:16)
[2020-01-08] MEDS: AMIODARONE 200 MG TABLET PO SCH (09:26)
[2020-01-08] MEDS: APIXABAN 5 MG TABLET PO SCH ×2 (09:26→22:15)
[2020-01-08] MEDS: SENNA/DOCUSATE TABLET PO SCH (09:26)
[2020-01-08 12:42] VITALS: BP 109/63
[2020-01-08 15:35] LABS: TROPONIN I 0.095 ng/mL (0.000-0.045)
[2020-01-08 20:28] VITALS: BP 109/66
[2020-01-08] MEDS: ONDANSETRON 2MG/ML, 2ML IVPush PRN (22:14)
[2020-01-08] MEDS: ATORVASTATIN 40 MG TABLET PO SCH (22:16)
[2020-01-09 01:52] VITALS: BP 97/59
[2020-01-09 09:55] VITALS: BP 104/62
[2020-01-09] MEDS: CARVEDILOL 6.25 MG TABLET PO SCH ×2 (09:59→21:39)
[2020-01-09] MEDS: FUROSEMIDE 20 MG TABLET PO SCH ×2 (09:59→21:39)
[2020-01-09] MEDS: SENNA/DOCUSATE TABLET PO SCH (09:59)
[2020-01-09] MEDS: LISINOPRIL 10 MG TABLET PO SCH (10:00)
[2020-01-09] MEDS: AMIODARONE 200 MG TABLET PO SCH (10:00)
[2020-01-09] MEDS: OXYcodone IR 5MG TABLET PO PRN ×2 (10:00→14:48)
[2020-01-09] MEDS: APIXABAN 5 MG TABLET PO SCH ×2 (10:00→21:39)
[2020-01-09] MEDS: POTASSIUM CHLORIDE 20 MEQ TAB.ER.PRT PO SCH ×2 (10:01→16:18)
[2020-01-09] MEDS: TEMPLATE NON-FORMULARY MED. (Albuterol Sulfate (Ventolin Hfa) 90 MCG) INH SCH ×2 (10:01→21:00)
[2020-01-09 13:24] VITALS: BP 132/81
[2020-01-09 19:47] VITALS: BP 109/66
[2020-01-09] MEDS: ATORVASTATIN 40 MG TABLET PO SCH (21:39)
[2020-01-09] MEDS: TRAZODONE 50MG TABLET PO PRN (21:44)
[2020-01-10 01:52] VITALS: BP 104/62
[2020-01-10] MEDS: OXYcodone IR 5MG TABLET PO PRN ×3 (06:39→17:29)
[2020-01-10 06:51] VITALS: BP 115/76
[2020-01-10] MEDS: POTASSIUM CHLORIDE 20 MEQ TAB.ER.PRT PO SCH ×2 (08:47→17:28)
[2020-01-10] MEDS: SENNA/DOCUSATE TABLET PO SCH (08:47)
[2020-01-10] MEDS: AMIODARONE 200 MG TABLET PO SCH (08:47)
[2020-01-10] MEDS: LISINOPRIL 10 MG TABLET PO SCH (08:48)
[2020-01-10] MEDS: FUROSEMIDE 20 MG TABLET PO SCH ×2 (08:48→20:15)
[2020-01-10] MEDS: APIXABAN 5 MG TABLET PO SCH ×2 (08:48→20:15)
[2020-01-10] MEDS: CARVEDILOL 6.25 MG TABLET PO SCH ×2 (08:48→20:15)
[2020-01-10] MEDS: TEMPLATE NON-FORMULARY MED. (Albuterol Sulfate (Ventolin Hfa) 90 MCG) INH SCH ×2 (08:57→20:15)
[2020-01-10 09:11] LABS: BASOPHILS # (AUTO) 0.04 x10^3/uL (0-0.1); BASOPHILS % (AUTO) 1 % (0-1); EOSINOPHILS # (AUTO) 0.15 x10^3/uL (0-0.4); EOSINOPHILS % (AUTO) 2 % (1-7); LYMPHOCYTES # (AUTO) 1.68 x10^3/uL (1-3.4); LYMPHOCYTES % (AUTO) 20 % (22-44); MD NO; MEAN CORPUSCULAR HEMOGLOBIN 28.2 pg (27.5-34.5); MEAN CORPUSCULAR HGB CONC 31.9 g/dL (33.2-36.2); MEAN CORPUSCULAR VOLUME 88.2 fL (81-97); MEAN PLATELET VOLUME 7.9 fL (7.4-10.4); MONOCYTES # (AUTO) 0.65 x10^3/uL (0.2-0.8); MONOCYTES % (AUTO) 8 % (2-9); NEUTROPHILS # (AUTO) 5.94 x10^3/uL (1.8-6.8); NEUTROPHILS % (AUTO) 70 % (42-75); PLATELET COUNT 335 x10^3/uL (130-400); RED BLOOD COUNT 5.44 x10^6/uL (4.38-5.82)
[2020-01-10 09:20] LABS: ANION GAP 4 mmol/L (5-15); CALCIUM 9.3 mg/dL (8.5-10.1); CHLORIDE 103 mmol/L (98-107); CREATININE 1.04 mg/dL (0.7-1.3)
[2020-01-10 12:28] VITALS: BP 122/75
[2020-01-10] MEDS ORDERED: ONDANSETRON ODT 4 MG ONE (17:24)
[2020-01-10] MEDS: ONDANSETRON 2MG/ML, 2ML IVPush PRN (17:28)
[2020-01-10 18:49] VITALS: BP 133/70
[2020-01-10] MEDS: ATORVASTATIN 40 MG TABLET PO SCH (20:15)
[2020-01-10] MEDS: TRAZODONE 50MG TABLET PO PRN (20:15)
[2020-01-11 01:17] VITALS: BP 113/73
[2020-01-11] MEDS: OXYcodone IR 5MG TABLET PO PRN ×2 (01:23→08:40)
[2020-01-11 06:22] VITALS: BP 109/73
[2020-01-11] MEDS: TEMPLATE NON-FORMULARY MED. (Albuterol Sulfate (Ventolin Hfa) 90 MCG) INH SCH (08:32)
[2020-01-11] MEDS: POTASSIUM CHLORIDE 20 MEQ TAB.ER.PRT PO SCH (08:38)
[2020-01-11] MEDS: APIXABAN 5 MG TABLET PO SCH (08:38)
[2020-01-11] MEDS: SENNA/DOCUSATE TABLET PO SCH (08:38)
[2020-01-11] MEDS: LISINOPRIL 10 MG TABLET PO SCH (08:38)
[2020-01-11] MEDS: FUROSEMIDE 20 MG TABLET PO SCH (08:39)
[2020-01-11] MEDS: CARVEDILOL 6.25 MG TABLET PO SCH (08:39)
[2020-01-11] MEDS: AMIODARONE 200 MG TABLET PO SCH (08:39)
[2020-01-11 12:51] VITALS: BP 115/80
== END 2020-01-11 14:00 | DRG 393 ==
LOC: ED 14:59 → EDIP 18:34 → ICU 19:15 → 5SO 12-28 17:47 → 4WST 12-31 21:24
PROVIDERS: ADMIT Internal Medicine; ATTEND Family Medicine
PROC: BF101ZZ Fluoroscopy of Bile Ducts using Low Osmolar Contrast (ICD-10-PCS; 2019-12-29)
PROC: 0F798DZ Dilation of Common Bile Duct with Intraluminal Device, Via Natural or Artificial Opening Endoscopic (ICD-10-PCS; principal; 2019-12-29 15:15)
DX: K91.89 Other postprocedural complications and disorders of digestive system (principal); E43 Unspecified severe protein-calorie malnutrition; I50.23 Acute on chronic systolic (congestive) heart failure; D68.69 Other thrombophilia; Z68.42 Body mass index [BMI] 45.0-49.9, adult; I13.0 Hypertensive heart and chronic kidney disease with heart failure and stage 1 through stage 4 chronic kidney disease, or unspecified chronic kidney disease; I42.8 Other cardiomyopathies; L03.311 Cellulitis of abdominal wall; E03.9 Hypothyroidism, unspecified; E66.01 Morbid (severe) obesity due to excess calories; Z20.828 Contact with and (suspected) exposure to other viral communicable diseases; G47.33 Obstructive sleep apnea (adult) (pediatric); G89.18 Other acute postprocedural pain; I34.0 Nonrheumatic mitral (valve) insufficiency; I48.0 Paroxysmal atrial fibrillation; J45.909 Unspecified asthma, uncomplicated; K83.8 Other specified diseases of biliary tract; N18.3 Chronic kidney disease, stage 3 (moderate); Y83.8 Other surgical procedures as the cause of abnormal reaction of the patient, or of later complication, without mention of misadventure at the time of the procedure; Z59.0 Homelessness; Z82.49 Family history of ischemic heart disease and other diseases of the circulatory system; Z86.718 Personal history of other venous thrombosis and embolism; Z87.891 Personal history of nicotine dependence; Z90.49 Acquired absence of other specified parts of digestive tract; Z91.19 Patient's noncompliance with other medical treatment and regimen; Y92.89 Other specified places as the place of occurrence of the external cause
CPT/HCPCS: 36415; 74018; 74328; 84145; 96365; 96366; 96368; 96375; 99285; C8929; 71045; 71275; 74177; 78226; 78452; 80048; 80053; 80061; 80076; 80202; 80307; 81001; 82436; 82570; 82962; 83605; 83690; 83735; 83880; 84100; 84133; 84300; 84439; 84443; 84484; 85025; 85610; 85730; 87040; 87070; 87081; 87205; 93005; 93017; 94640; G0378; J1100; J1170; J1940; J2310; J2405; J2543; J2704; J2785; J3010; J3370; Q9957; Q9967; A9502; A9537; C1769; C1894; C2625; C9898; J2060; J2270; J2370; J7040

== ENCOUNTER 2020-01-14 21:04 | Inpatient (IN) | payer MEDICAID ==
[~2020-01-14] VITALS: Ht 180.3 cm; Wt 133.6 kg
--- NOTE | 2020-01-14 21:15 | NUR ---
PT TRANSFERRED FROM [facility] S/T CP AND N/V. PT STATES HE NORMALLY TAKES LASIX AND K+ FOR HIS CHF AND FEELS LIKE HE HAS NOT BEEN RECEIVING THESE DURING HIS WEEK STAY IN [facility]. PT C/O INCREASED GENERALIZED SWELLING AND SOB. PT STATES CP HAS BEEN INTERMITTENT BUT INCREASING T/O THE DAY. NSR ON MONITOR. VSS. NO S/S OF ACUTE DISTRESS. PT HAS WOUNDVAC TO R GROIN AREA S/P TESTICULAR TORSION SURGERY AT [facility] ALMOST 1 MONTH AGO. DRESSING IS CDI. CALL LIGHT IN REACH.
[2020-01-14] MEDS ORDERED: ONDANSETRON 2MG/ML, 2ML IVPush ONE (21:30)
[2020-01-14] MEDS ORDERED: SODIUM CHLORIDE FLUSH 10ML SYR IVF ONE (21:30)
[2020-01-14] MEDS ORDERED: ONDANSETRON 2MG/ML, 2ML ONE (21:41)
[2020-01-14] MEDS ORDERED: MORPHINE SULFATE 4 MG/ML, 1ML ONE ×2 (21:42→22:43)
[2020-01-14] MEDS: MORPHINE SULFATE 4 MG/ML, 1ML IVPush PRN ×2 (21:46→22:48)
--- NOTE | 2020-01-14 21:50 | NUR ---
IV ACCESS OBTAINED AND LABS DRAWN. PT MEDICATED PER MAR BY JAGUAR KIMBALL. PT AWARE OF UA. PT PLACED ON OXYMASK 3L PER REQUEST--STATES HE CAN NOT TOLERATE NC. PT AWARE OF POC. CALL LIGHT IN REACH.
[2020-01-14 21:57] LABS: ALANINE AMINOTRANSFERASE 100 U/L (12-78); ALBUMIN 3.5 g/dL (3.4-5.0); ANION GAP 6 mmol/L (5-15); BASOPHILS # (AUTO) 0.04 x10^3/uL (0-0.1); BASOPHILS % (AUTO) 0 % (0-1); CALCIUM 9.4 mg/dL (8.5-10.1); CHLORIDE 107 mmol/L (98-107); CREATININE 1.14 mg/dL (0.7-1.3); EOSINOPHILS % (AUTO) 2 % (1-7); LYMPHOCYTES # (AUTO) 2.49 x10^3/uL (1-3.4); LYMPHOCYTES % (AUTO) 20 % (22-44); MD NO; MEAN CORPUSCULAR HEMOGLOBIN 27.8 pg (27.5-34.5); MEAN CORPUSCULAR VOLUME 86.9 fL (81-97); MEAN PLATELET VOLUME 8.5 fL (7.4-10.4); MONOCYTES # (AUTO) 0.84 x10^3/uL (0.2-0.8); MONOCYTES % (AUTO) 7 % (2-9); NEUTROPHILS # (AUTO) 8.63 x10^3/uL (1.8-6.8); NEUTROPHILS % (AUTO) 71 % (42-75); PLATELET COUNT 307 x10^3/uL (130-400); RED BLOOD COUNT 5.53 x10^6/uL (4.38-5.82); RED CELL DISTRIBUTION WIDTH 16.5 % (9.4-14.8)
[2020-01-14 22:01] LABS: ALKALINE PHOSPHATASE 131 U/L (45-117); BILIRUBIN,TOTAL 0.5 mg/dL (0.2-1.0); TOTAL PROTEIN 8.3 g/dL (6.4-8.2); TROPONIN I 0.119 ng/mL (0.000-0.045)
--- NOTE | 2020-01-14 22:30 | NUR ---
US AT BEDSIDE.
--- NOTE | 2020-01-14 22:50 | NUR ---
PT UP TO BR WITH STEADY GAIT. UA COLLECTED AND SENT. PT MEDICATED PER MAR FOR CONTINUED ABD PAIN. ASA HELD S/T PT RECEIVING 324 MG ASA ASSISTANT SIGNAL MAINTAINER BY EMS. ERP AWARE. PT TO BE ADMITTED. CALL LIGHT IN REACH.
[2020-01-14 22:59] LABS: MICROSCOPIC NOT IND
[2020-01-14] MEDS ORDERED: ASPIRIN 325 MG TABLET PO ONE (23:00)
[2020-01-14 23:02] LABS: CULTURE INDICATED? NO
[2020-01-14] MEDS ORDERED: TRAM50TA2 PO (23:12)
--- NOTE | 2020-01-14 23:33 | NUR ---
DR THRASHER AT BEDSIDE TO EVAL FOR ADMISSION. PT TO BE TRANSFERRED TO FLOOR.
[2020-01-15] MEDS ORDERED: ACETAMINOPHEN 325 MG TABLET PO PRN
[2020-01-15] MEDS ORDERED: hydrALAzine 20 MG/ML, 1ML IVPush PRN
[2020-01-15] MEDS ORDERED: ONDANSETRON 2MG/ML, 2ML IVPush PRN
[2020-01-15 00:11] VITALS: BP 122/83
[2020-01-15] MEDS: morphine SULFATE 10 MG/ML, 1ML IVPush PRN ×3 (01:51→20:59)
[2020-01-15 02:54] VITALS: BP 104/66
[2020-01-15 05:41] LABS: ALANINE AMINOTRANSFERASE 88 U/L (12-78); ALBUMIN 3.1 g/dL (3.4-5.0); ANION GAP 8 mmol/L (5-15); BILIRUBIN, DIRECT 0.2 mg/dL (0.1-0.2); CALCIUM 8.8 mg/dL (8.5-10.1); CHLORIDE 107 mmol/L (98-107)
[2020-01-15 05:42] LABS: BASOPHILS # (AUTO) 0.05 x10^3/uL (0-0.1); BASOPHILS % (AUTO) 1 % (0-1); EOSINOPHILS # (AUTO) 0.23 x10^3/uL (0-0.4); EOSINOPHILS % (AUTO) 2 % (1-7); LYMPHOCYTES # (AUTO) 2.96 x10^3/uL (1-3.4); LYMPHOCYTES % (AUTO) 25 % (22-44); MD NO; MEAN CORPUSCULAR HEMOGLOBIN 27.9 pg (27.5-34.5); MEAN CORPUSCULAR HGB CONC 32.1 g/dL (33.2-36.2); MEAN PLATELET VOLUME 8.9 fL (7.4-10.4); MONOCYTES # (AUTO) 0.87 x10^3/uL (0.2-0.8); MONOCYTES % (AUTO) 7 % (2-9); NEUTROPHILS # (AUTO) 7.58 x10^3/uL (1.8-6.8); NEUTROPHILS % (AUTO) 65 % (42-75); PLATELET COUNT 276 x10^3/uL (130-400); RED BLOOD COUNT 4.97 x10^6/uL (4.38-5.82); RED CELL DISTRIBUTION WIDTH 16.7 % (9.4-14.8)
[2020-01-15 05:46] LABS: ALKALINE PHOSPHATASE 102 U/L (45-117); BILIRUBIN,INDIRECT 0.6 mg/dL (0.0-2.0); BILIRUBIN,TOTAL 0.8 mg/dL (0.2-1.0); CREATININE 1.03 mg/dL (0.7-1.3); TOTAL PROTEIN 7.4 g/dL (6.4-8.2); TROPONIN I 0.101 ng/mL (0.000-0.045)
[2020-01-15 06:58] VITALS: BP 101/67
[2020-01-15] MEDS: PANTOPRAZOLE 40 MG IV IVPush SCH (08:34)
[2020-01-15] MEDS: SPIRONOLACTONE 25 MG TABLET PO SCH (08:35)
[2020-01-15] MEDS: APIXABAN 5 MG TABLET PO SCH ×2 (08:35→20:59)
[2020-01-15] MEDS: FUROSEMIDE 40 MG TABLET PO SCH (08:35)
[2020-01-15] MEDS: CARVEDILOL 6.25 MG TABLET PO SCH ×2 (08:35→21:00)
[2020-01-15] MEDS: AMIODARONE 200 MG TABLET PO SCH (08:35)
[2020-01-15] MEDS: LISINOPRIL 10 MG TABLET PO SCH (08:36)
[2020-01-15] MEDS: MAALOX/HYOSCYAMINE/LIDOCAINE 45 ML BTL PO SCH ×3 (11:00→21:00)
[2020-01-15 14:34] VITALS: BP 98/65
[2020-01-15] MEDS ORDERED: MAALOX/HYOSCYAMINE/LIDOCAINE 45 ML BTL PO SCH (15:00)
[2020-01-15 15:43] LABS: TROPONIN I 0.109 ng/mL (0.000-0.045)
[2020-01-15 19:57] LABS: TROPONIN I 0.103 ng/mL (0.000-0.045)
[2020-01-15 20:58] VITALS: BP 110/76
[2020-01-16 01:15] VITALS: BP 95/65
[2020-01-16] MEDS: MAALOX/HYOSCYAMINE/LIDOCAINE 45 ML BTL PO SCH ×4 (03:00→16:48)
[2020-01-16 05:42] LABS: BASOPHILS # (AUTO) 0.07 x10^3/uL (0-0.1); BASOPHILS % (AUTO) 1 % (0-1); EOSINOPHILS % (AUTO) 2 % (1-7); LYMPHOCYTES # (AUTO) 2.77 x10^3/uL (1-3.4); LYMPHOCYTES % (AUTO) 28 % (22-44); MD NO; MEAN CORPUSCULAR HEMOGLOBIN 28.1 pg (27.5-34.5); MEAN CORPUSCULAR HGB CONC 32.1 g/dL (33.2-36.2); MEAN CORPUSCULAR VOLUME 87.6 fL (81-97); MEAN PLATELET VOLUME 8.4 fL (7.4-10.4); MONOCYTES % (AUTO) 8 % (2-9); NEUTROPHILS # (AUTO) 5.97 x10^3/uL (1.8-6.8); NEUTROPHILS % (AUTO) 61 % (42-75); PLATELET COUNT 263 x10^3/uL (130-400); RED BLOOD COUNT 4.92 x10^6/uL (4.38-5.82); RED CELL DISTRIBUTION WIDTH 16.3 % (9.4-14.8)
[2020-01-16 05:52] LABS: CHLORIDE 104 mmol/L (98-107)
[2020-01-16 06:00] LABS: ALANINE AMINOTRANSFERASE 80 U/L (12-78); ALBUMIN 3.2 g/dL (3.4-5.0); ALKALINE PHOSPHATASE 96 U/L (45-117); ANION GAP 5 mmol/L (5-15); BILIRUBIN,TOTAL 1.1 mg/dL (0.2-1.0); CALCIUM 9.2 mg/dL (8.5-10.1); CREATININE 0.99 mg/dL (0.7-1.3); TOTAL PROTEIN 7.1 g/dL (6.4-8.2)
[2020-01-16] MEDS: LISINOPRIL 10 MG TABLET PO SCH (08:12)
[2020-01-16] MEDS: SPIRONOLACTONE 25 MG TABLET PO SCH (08:12)
[2020-01-16] MEDS: APIXABAN 5 MG TABLET PO SCH ×2 (08:13→22:03)
[2020-01-16] MEDS: CARVEDILOL 6.25 MG TABLET PO SCH ×2 (08:13→22:03)
[2020-01-16] MEDS: AMIODARONE 200 MG TABLET PO SCH (08:13)
[2020-01-16] MEDS: FUROSEMIDE 40 MG TABLET PO SCH (08:14)
[2020-01-16] MEDS: PANTOPRAZOLE 40 MG IV IVPush SCH ×2 (08:14→08:23)
[2020-01-16 08:25] VITALS: BP 104/72
[2020-01-16] MEDS ORDERED: REGADENOSON 0.4 MG/5 ML SYRINGE ONE (08:58)
[2020-01-16 13:45] VITALS: BP 103/64
[2020-01-16] MEDS: morphine SULFATE 10 MG/ML, 1ML IVPush PRN ×2 (16:42→22:03)
[2020-01-16 18:32] VITALS: BP 106/71
[2020-01-17 01:42] VITALS: BP 106/66
[2020-01-17] MEDS: MAALOX/HYOSCYAMINE/LIDOCAINE 45 ML BTL PO SCH ×2 (03:00→09:00)
[2020-01-17 05:22] LABS: BASOPHILS # (AUTO) 0.04 x10^3/uL (0-0.1); BASOPHILS % (AUTO) 0 % (0-1); EOSINOPHILS # (AUTO) 0.16 x10^3/uL (0-0.4); EOSINOPHILS % (AUTO) 2 % (1-7); LYMPHOCYTES # (AUTO) 2.53 x10^3/uL (1-3.4); LYMPHOCYTES % (AUTO) 26 % (22-44); MD NO; MEAN CORPUSCULAR HEMOGLOBIN 27.8 pg (27.5-34.5); MEAN PLATELET VOLUME 8.8 fL (7.4-10.4); MONOCYTES # (AUTO) 0.87 x10^3/uL (0.2-0.8); MONOCYTES % (AUTO) 9 % (2-9); NEUTROPHILS # (AUTO) 6.04 x10^3/uL (1.8-6.8); NEUTROPHILS % (AUTO) 63 % (42-75); PLATELET COUNT 260 x10^3/uL (130-400); RED CELL DISTRIBUTION WIDTH 16.3 % (9.4-14.8)
[2020-01-17 05:31] LABS: ALANINE AMINOTRANSFERASE 65 U/L (12-78); ANION GAP 4 mmol/L (5-15); CALCIUM 9.1 mg/dL (8.5-10.1); CHLORIDE 105 mmol/L (98-107); CREATININE 1.12 mg/dL (0.7-1.3)
[2020-01-17 05:33] LABS: ALKALINE PHOSPHATASE 108 U/L (45-117); BILIRUBIN,TOTAL 0.6 mg/dL (0.2-1.0); TOTAL PROTEIN 7.1 g/dL (6.4-8.2)
[2020-01-17] MEDS ORDERED: PANTOPRAZOLE 40MG TABLET PO SCH (06:00)
[2020-01-17 09:00] VITALS: BP 110/68
[2020-01-17] MEDS: AMIODARONE 200 MG TABLET PO SCH (09:18)
[2020-01-17] MEDS: FUROSEMIDE 40 MG TABLET PO SCH (09:18)
[2020-01-17] MEDS: CARVEDILOL 6.25 MG TABLET PO SCH (09:19)
[2020-01-17] MEDS: SPIRONOLACTONE 25 MG TABLET PO SCH (09:19)
[2020-01-17] MEDS: APIXABAN 5 MG TABLET PO SCH (09:19)
[2020-01-17] MEDS: LISINOPRIL 10 MG TABLET PO SCH (09:19)
[2020-01-17] MEDS ORDERED: PANT40TA5 PO (11:49)
== END 2020-01-17 15:25 | disposition home or self-care (01) | DRG 392 ==
LOC: ED 21:59 → EDIP 22:57 → 5SO 23:39
PROVIDERS: ADMIT Internal Medicine; ATTEND Internal Medicine
DX: K29.70 Gastritis, unspecified, without bleeding (principal); I13.0 Hypertensive heart and chronic kidney disease with heart failure and stage 1 through stage 4 chronic kidney disease, or unspecified chronic kidney disease; I50.32 Chronic diastolic (congestive) heart failure; I42.8 Other cardiomyopathies; K21.9 Gastro-esophageal reflux disease without esophagitis; G47.33 Obstructive sleep apnea (adult) (pediatric); E66.01 Morbid (severe) obesity due to excess calories; E03.9 Hypothyroidism, unspecified; N18.3 Chronic kidney disease, stage 3 (moderate); D72.829 Elevated white blood cell count, unspecified; I48.0 Paroxysmal atrial fibrillation; K76.0 Fatty (change of) liver, not elsewhere classified; Z82.49 Family history of ischemic heart disease and other diseases of the circulatory system; Z79.899 Other long term (current) drug therapy; Z79.01 Long term (current) use of anticoagulants; Z59.0 Homelessness; Z86.718 Personal history of other venous thrombosis and embolism; Z90.49 Acquired absence of other specified parts of digestive tract; Z87.891 Personal history of nicotine dependence; I25.2 Old myocardial infarction
CPT/HCPCS: 36415; 71045; 76700; 76857; 78226; 78452; 80048; 80053; 80076; 81003; 83690; 83880; 84484; 85025; 93005; 93017; 96374; 96375; 96376; G0378; J2405; J2785; A9502; A9537; C9113; C9898; J2270

== ENCOUNTER 2020-01-23 23:07 | Observation (INO) | payer MEDICAID ==
[~2020-01-23] VITALS: Ht 180.3 cm; Wt 129.8 kg
[~2020-01-23 23:07] MED LIST changes: +PANT40TA5 PO; +TRAM50TA2 PO
[2020-01-23] MEDS ORDERED: PROMETHAZINE 25 MG/ML, 1ML IM ONE (23:30)
[2020-01-23] MEDS ORDERED: OXYcodone/APAP 5/325MG TABLET PO ONE (23:30)
[2020-01-23] MEDS ORDERED: OXYcodone/APAP 5/325MG TABLET ONE (23:36)
[2020-01-23] MEDS ORDERED: PROMETHAZINE 25 MG/ML, 1ML ONE (23:36)
--- NOTE | 2020-01-23 23:45 | NUR ---
MEDS ADMIN PER NOV. PT RESTING ON [facility]. JAYNA
[2020-01-23 23:48] LABS: BASOPHILS # (AUTO) 0.05 x10^3/uL (0-0.1); BASOPHILS % (AUTO) 1 % (0-1); EOSINOPHILS # (AUTO) 0.13 x10^3/uL (0-0.4); EOSINOPHILS % (AUTO) 1 % (1-7); LYMPHOCYTES # (AUTO) 1.86 x10^3/uL (1-3.4); LYMPHOCYTES % (AUTO) 17 % (22-44); MD NO; MEAN CORPUSCULAR HEMOGLOBIN 27.8 pg (27.5-34.5); MEAN CORPUSCULAR HGB CONC 32.4 g/dL (33.2-36.2); MEAN CORPUSCULAR VOLUME 85.8 fL (81-97); MONOCYTES # (AUTO) 0.71 x10^3/uL (0.2-0.8); MONOCYTES % (AUTO) 6 % (2-9); NEUTROPHILS # (AUTO) 8.49 x10^3/uL (1.8-6.8); NEUTROPHILS % (AUTO) 76 % (42-75); PLATELET COUNT 267 x10^3/uL (130-400); RED BLOOD COUNT 5.63 x10^6/uL (4.38-5.82); RED CELL DISTRIBUTION WIDTH 16.6 % (9.4-14.8)
[2020-01-23 23:52] LABS: MICROSCOPIC NOT IND
[2020-01-23 23:54] LABS: CULTURE INDICATED? NO
[2020-01-23 23:58] LABS: ALANINE AMINOTRANSFERASE 53 U/L (12-78); ALBUMIN 3.9 g/dL (3.4-5.0); ANION GAP 8 mmol/L (5-15); CALCIUM 9.6 mg/dL (8.5-10.1); CHLORIDE 104 mmol/L (98-107); CREATININE 1.35 mg/dL (0.7-1.3)
[2020-01-24 00:03] LABS: ALKALINE PHOSPHATASE 100 U/L (45-117); BILIRUBIN,TOTAL 0.7 mg/dL (0.2-1.0)
[2020-01-24 00:05] LABS: TROPONIN I 0.131 ng/mL (0.000-0.045)
[2020-01-24] MEDS ORDERED: FUROSEMIDE 40 MG/4 ML ONE (00:29)
[2020-01-24] MEDS ORDERED: MORPHINE SULFATE 4 MG/ML, 1ML ONE (00:29)
[2020-01-24] MEDS ORDERED: ASPIRIN 81 MG TABLET CHEW ONE (00:29)
[2020-01-24] MEDS ORDERED: MORPHINE SULFATE 4 MG/ML, 1ML IVPush PRN (00:30)
[2020-01-24] MEDS ORDERED: SODIUM CHLORIDE FLUSH 10ML SYR IVF ONE (00:30)
[2020-01-24] MEDS ORDERED: FUROSEMIDE 40 MG/4 ML IVPush ONE (00:30)
[2020-01-24] MEDS ORDERED: ASPIRIN 81 MG TABLET CHEW PO ONE (00:30)
[2020-01-24] MEDS ORDERED: ASPIRIN 325 MG TABLET PO ONE (00:30)
--- NOTE | 2020-01-24 00:53 | NUR ---
TP RN: PT HAS [facility] INSURANCE. SPOKE WITH [facility] AND [facility], PT WAS DENIED TRANSFER.
--- NOTE | 2020-01-24 01:18 | NUR ---
report from nina assumed care of pt, admitting md at bedside at this time
--- NOTE | 2020-01-24 02:37 | NUR ---
REPORT TO KATIE COPELAND TO FLOOR WITH TECH
--- NOTE | 2020-01-24 02:39 | NUR ---
REPORT TO MIN PT TO FLOOR WITH TECH
[2020-01-24] MEDS ORDERED: ONDANSETRON 2MG/ML, 2ML IVPush PRN (03:00)
[2020-01-24] MEDS ORDERED: DOCUSATE 100 MG CAPSULE PO PRN (03:00)
[2020-01-24] MEDS ORDERED: morphine SULFATE 10 MG/ML, 1ML IVPush PRN (03:00)
[2020-01-24 03:33] VITALS: BP 106/73
[2020-01-24] MEDS ORDERED: PANTOPRAZOLE 40MG TABLET PO SCH (06:00)
[2020-01-24 06:05] LABS: TROPONIN I 0.122 ng/mL (0.000-0.045)
[2020-01-24 06:57] VITALS: BP 107/74
[2020-01-24] MEDS: AMIODARONE 200 MG TABLET PO SCH (08:40)
[2020-01-24] MEDS: FUROSEMIDE 20 MG TABLET PO SCH (08:40)
[2020-01-24] MEDS: SPIRONOLACTONE 25 MG TABLET PO SCH (08:40)
[2020-01-24] MEDS: CARVEDILOL 6.25 MG TABLET PO SCH ×3 (08:41→22:10)
[2020-01-24] MEDS ORDERED: MAALOX/HYOSCYAMINE/LIDOCAINE 45 ML BTL PO PRN (09:00)
[2020-01-24] MEDS ORDERED: LISINOPRIL 10 MG TABLET PO SCH (09:00)
[2020-01-24] MEDS ORDERED: APIXABAN 5 MG TABLET PO SCH (09:00)
[2020-01-24] MEDS ORDERED: TEMPLATE NON-FORMULARY MED. (Albuterol Sulfate (Ventolin Hfa) 90 MCG) INH SCH (09:00)
[2020-01-24 12:31] VITALS: BP 99/64
[2020-01-24] MEDS: SUCRALFATE 1 GM TABLET PO SCH ×3 (13:16→22:10)
[2020-01-24 16:30] LABS: INTERNATIONAL NORMALIZED RATIO 1.2 (0.93-1.1); PROTHROMBIN TIME 12.7 Seconds (9.6-11.5)
[2020-01-24 17:37] LABS: AMPHETAMINE SCREEN, URINE Positive (Negative); BARBITURATE SCREEN, URINE Negative (Negative); BENZODIAZEPINE SCREEN, URINE Negative (Negative); CANNABINOID SCREEN, URINE Negative (Negative); COCAINE SCREEN, URINE Negative (Negative); METHADONE SCREEN, URINE Negative (Negative); OPIATE SCREEN, URINE Positive (Negative)
[2020-01-24] MEDS: PANTOPRAZOLE 40 MG IV IVPush SCH (18:13)
[2020-01-24 20:00] VITALS: BP 112/62
[2020-01-25] VITALS (7 sets, daily range): BP systolic 93–132; BP diastolic 59–64
[2020-01-25] MEDS ORDERED: ALBUTEROL SULFATE 2.5 MG/3 ML NPPB SCH (00:12)
[2020-01-25 05:31] LABS: ANION GAP 4 mmol/L (5-15); CALCIUM 8.4 mg/dL (8.5-10.1); CHLORIDE 105 mmol/L (98-107)
[2020-01-25 05:32] LABS: CREATININE 0.99 mg/dL (0.7-1.3)
[2020-01-25 05:35] LABS: BASOPHILS # (AUTO) 0.04 x10^3/uL (0-0.1); BASOPHILS % (AUTO) 1 % (0-1); EOSINOPHILS # (AUTO) 0.18 x10^3/uL (0-0.4); EOSINOPHILS % (AUTO) 2 % (1-7); LYMPHOCYTES # (AUTO) 2.64 x10^3/uL (1-3.4); LYMPHOCYTES % (AUTO) 33 % (22-44); MD NO; MEAN CORPUSCULAR HEMOGLOBIN 27.9 pg (27.5-34.5); MEAN CORPUSCULAR HGB CONC 32.1 g/dL (33.2-36.2); MEAN CORPUSCULAR VOLUME 86.7 fL (81-97); MEAN PLATELET VOLUME 9.3 fL (7.4-10.4); MONOCYTES # (AUTO) 0.55 x10^3/uL (0.2-0.8); MONOCYTES % (AUTO) 7 % (2-9); NEUTROPHILS # (AUTO) 4.55 x10^3/uL (1.8-6.8); NEUTROPHILS % (AUTO) 57 % (42-75); PLATELET COUNT 248 x10^3/uL (130-400); RED BLOOD COUNT 4.94 x10^6/uL (4.38-5.82); RED CELL DISTRIBUTION WIDTH 15.9 % (9.4-14.8)
[2020-01-25] MEDS: PANTOPRAZOLE 40 MG IV IVPush SCH (06:04)
[2020-01-25] MEDS: SUCRALFATE 1 GM TABLET PO SCH ×4 (07:00→20:51)
[2020-01-25] MEDS: ALBUTEROL SULFATE 2.5 MG/3 ML NPPB SCH ×2 (09:00→19:47)
[2020-01-25] MEDS: CARVEDILOL 6.25 MG TABLET PO SCH ×2 (09:04→20:51)
[2020-01-25] MEDS: FUROSEMIDE 20 MG TABLET PO SCH (11:25)
[2020-01-25] MEDS: SPIRONOLACTONE 25 MG TABLET PO SCH (11:26)
[2020-01-25] MEDS: AMIODARONE 200 MG TABLET PO SCH (11:26)
[2020-01-25] MEDS: LISINOPRIL 10 MG TABLET PO SCH (14:24)
[2020-01-26 01:29] VITALS: BP 101/67
[2020-01-26] MEDS: ACETAMINOPHEN 325 MG TABLET PO PRN ×2 (01:31→08:04)
[2020-01-26] MEDS: PANTOPRAZOLE 40MG TABLET PO SCH ×2 (06:14→16:51)
[2020-01-26] MEDS: SUCRALFATE 1 GM TABLET PO SCH ×4 (06:14→21:13)
[2020-01-26 07:20] VITALS: BP 92/60
[2020-01-26] MEDS: FUROSEMIDE 20 MG TABLET PO SCH (08:02)
[2020-01-26] MEDS: AMIODARONE 200 MG TABLET PO SCH (08:02)
[2020-01-26] MEDS: LISINOPRIL 10 MG TABLET PO SCH (08:02)
[2020-01-26] MEDS: CARVEDILOL 6.25 MG TABLET PO SCH (08:02)
[2020-01-26] MEDS: SPIRONOLACTONE 25 MG TABLET PO SCH (08:02)
[2020-01-26] MEDS: CARVEDILOL 3.125 MG TABLET PO SCH ×2 (09:00→23:56)
[2020-01-26] MEDS: ALBUTEROL SULFATE 2.5 MG/3 ML NPPB SCH ×2 (09:04→19:30)
[2020-01-26] MEDS: LACTULOSE 10 GM/15 ML UDC PO SCH ×2 (09:06→21:29)
[2020-01-26] MEDS: CYCLOBENZAPRINE 10 MG TABLET PO SCH ×2 (10:50→21:14)
[2020-01-26] MEDS: LIDODERM 5% PATCH TD SCH (10:51)
[2020-01-26] MEDS ORDERED: FENTANYL REMOVE PATCH NOTE XX SCH (11:00)
[2020-01-26] MEDS ORDERED: LIDODERM REMOVE PATCH NOTE XX SCH (11:00)
[2020-01-26 15:26] VITALS: BP 103/64
[2020-01-26 19:26] VITALS: BP 96/63
[2020-01-26] MEDS: APIXABAN 5 MG TABLET PO SCH (21:14)
[2020-01-26] MEDS: LIDODERM REMOVE PATCH NOTE XX SCH (22:29)
[2020-01-26 23:50] VITALS: BP 99/69
[2020-01-27 01:22] VITALS: BP 107/75
[2020-01-27] MEDS: ALBUTEROL SULFATE 2.5 MG/3 ML NPPB SCH (02:25)
[2020-01-27 05:51] LABS: BASOPHILS # (AUTO) 0.03 x10^3/uL (0-0.1); BASOPHILS % (AUTO) 0 % (0-1); EOSINOPHILS # (AUTO) 0.12 x10^3/uL (0-0.4); EOSINOPHILS % (AUTO) 1 % (1-7); LYMPHOCYTES # (AUTO) 2.77 x10^3/uL (1-3.4); LYMPHOCYTES % (AUTO) 28 % (22-44); MD NO; MEAN CORPUSCULAR HEMOGLOBIN 28.1 pg (27.5-34.5); MEAN CORPUSCULAR HGB CONC 32.3 g/dL (33.2-36.2); MEAN CORPUSCULAR VOLUME 86.9 fL (81-97); MEAN PLATELET VOLUME 8.9 fL (7.4-10.4); MONOCYTES # (AUTO) 0.65 x10^3/uL (0.2-0.8); MONOCYTES % (AUTO) 7 % (2-9); NEUTROPHILS # (AUTO) 6.16 x10^3/uL (1.8-6.8); NEUTROPHILS % (AUTO) 63 % (42-75); PLATELET COUNT 226 x10^3/uL (130-400); RED BLOOD COUNT 4.87 x10^6/uL (4.38-5.82); RED CELL DISTRIBUTION WIDTH 16.4 % (9.4-14.8)
[2020-01-27] MEDS: SUCRALFATE 1 GM TABLET PO SCH ×4 (06:13→21:00)
[2020-01-27] MEDS: PANTOPRAZOLE 40MG TABLET PO SCH ×2 (06:13→17:15)
[2020-01-27 06:32] VITALS: BP 99/64
[2020-01-27] MEDS ORDERED: ALBUTEROL SULFATE 2.5 MG/3 ML NPPB PRN (09:00)
[2020-01-27 09:02] VITALS: BP 92/65
[2020-01-27] MEDS: APIXABAN 5 MG TABLET PO SCH ×2 (09:07→21:00)
[2020-01-27] MEDS: CARVEDILOL 3.125 MG TABLET PO SCH ×2 (09:07→21:00)
[2020-01-27] MEDS: SPIRONOLACTONE 25 MG TABLET PO SCH (09:07)
[2020-01-27] MEDS: AMIODARONE 200 MG TABLET PO SCH (09:08)
[2020-01-27] MEDS: FUROSEMIDE 20 MG TABLET PO SCH (09:08)
[2020-01-27] MEDS: LACTULOSE 10 GM/15 ML UDC PO SCH ×2 (09:08→21:00)
[2020-01-27] MEDS: LISINOPRIL 10 MG TABLET PO SCH (09:08)
[2020-01-27] MEDS: CYCLOBENZAPRINE 10 MG TABLET PO SCH ×2 (10:06→21:00)
[2020-01-27 12:34] VITALS: BP 115/75
[2020-01-27] MEDS: LIDODERM 5% PATCH TD SCH (12:50)
[2020-01-27 19:38] VITALS: BP 103/72
[2020-01-27] MEDS: LIDODERM REMOVE PATCH NOTE XX SCH (22:06)
[2020-01-28 00:30] VITALS: BP 95/60
[2020-01-28] MEDS: SUCRALFATE 1 GM TABLET PO SCH ×2 (06:14→11:00)
[2020-01-28] MEDS: PANTOPRAZOLE 40MG TABLET PO SCH (06:14)
[2020-01-28 08:00] VITALS: BP 103/69
[2020-01-28] MEDS: FUROSEMIDE 20 MG TABLET PO SCH (08:09)
[2020-01-28] MEDS: LISINOPRIL 10 MG TABLET PO SCH (08:09)
[2020-01-28] MEDS: SPIRONOLACTONE 25 MG TABLET PO SCH (08:09)
[2020-01-28] MEDS: CARVEDILOL 3.125 MG TABLET PO SCH (08:10)
[2020-01-28] MEDS: LACTULOSE 10 GM/15 ML UDC PO SCH (08:10)
[2020-01-28] MEDS: APIXABAN 5 MG TABLET PO SCH (08:10)
[2020-01-28] MEDS: CYCLOBENZAPRINE 10 MG TABLET PO SCH ×2 (08:10→08:12)
[2020-01-28] MEDS: AMIODARONE 200 MG TABLET PO SCH (08:10)
[2020-01-28] MEDS: LIDODERM 5% PATCH TD SCH (11:00)
[2020-01-28 14:15] VITALS: BP 106/74
[2020-01-28] MEDS ORDERED: CYCL-259 PO (14:29)
[2020-01-28] MEDS ORDERED: ACET325T26 PO (14:29)
[2020-01-28] MEDS ORDERED: PANT40TA5 PO (14:29)
[2020-01-28] MEDS ORDERED: SUCR1TAB33 PO (14:29)
[2020-01-28] MEDS ORDERED: CARV3.1212 PO (14:29)
== END 2020-01-28 17:09 ==
LOC: ED 01-24 01:56 → EDIP 01-24 01:57 → INTOOBSV 01-24 01:57 → 5SO 01-24 02:53 → INTOOBSV 01-24 14:37 → OBSVTOIN 01-24 14:37 → 3N 01-27 22:26
PROVIDERS: ATTEND Internal Medicine
DX: R10.13 Epigastric pain (principal); R07.89 Other chest pain; K29.71 Gastritis, unspecified, with bleeding; I13.0 Hypertensive heart and chronic kidney disease with heart failure and stage 1 through stage 4 chronic kidney disease, or unspecified chronic kidney disease; I42.9 Cardiomyopathy, unspecified; I50.22 Chronic systolic (congestive) heart failure; K29.70 Gastritis, unspecified, without bleeding; K25.4 Chronic or unspecified gastric ulcer with hemorrhage; E03.9 Hypothyroidism, unspecified; K92.0 Hematemesis; E66.01 Morbid (severe) obesity due to excess calories; F12.90 Cannabis use, unspecified, uncomplicated; G89.29 Other chronic pain; I25.2 Old myocardial infarction; I48.91 Unspecified atrial fibrillation; J45.909 Unspecified asthma, uncomplicated; N18.9 Chronic kidney disease, unspecified; Z79.01 Long term (current) use of anticoagulants; Z87.11 Personal history of peptic ulcer disease; Z79.899 Other long term (current) drug therapy
CPT/HCPCS: 36415; 71045; 72110; 80048; 80053; 80307; 81003; 82140; 83690; 83880; 84484; 85014; 85018; 85025; 85610; 85730; 93005; 94640; 96372; 96374; 96375; 96376; 97163; 97166; 97530; 99285; C9113; G0378; J1940; J2270; J2550; J7613

== ENCOUNTER 2020-02-05 08:25 | Emergency (ER) | payer MEDICAID ==
[~2020-02-05] VITALS: Ht 180.3 cm; Wt 127.0 kg
[~2020-02-05 08:25] MED LIST changes: +ACET325T26 PO; +CARV3.1212 PO; +CYCL-259 PO; +SUCR1TAB33 PO
[2020-02-05 08:31] VITALS: BP 189/102
--- NOTE | 2020-02-05 10:10 | NUR ---
IN TO DC PT. KNEE IMMOB APPLIED BY TECH. PT REFUSED CRUTCHES. PT REFUSED TO HAVE THIS RN GO OVER DC PAPERWORK WITH HIM. PT SWEARING, RELUCTANT TO LEAVE, ASKING FOR A RIDE TO [place]. OFFERED PT WHEELCHAIR TO DC WINDOW. PT REFUSED. PT STS "YOURE IRRITATING, I WANT YOU TO LEAVE". SECURITY CALLED. PT ESCORTED OUT BY SECURITY W/ ALL BELONGINGS VIA WHEELCHAIR.
== END 2020-02-05 10:14 | disposition home or self-care (01) ==
LOC: ED 09:33
DX: S83.92XA Sprain of unspecified site of left knee, initial encounter (principal); I10 Essential (primary) hypertension; E11.9 Type 2 diabetes mellitus without complications; X58.XXXA Exposure to other specified factors, initial encounter; Y93.89 Activity, other specified; Y92.89 Other specified places as the place of occurrence of the external cause; Y99.8 Other external cause status
CPT/HCPCS: 29505; 99283

== ENCOUNTER 2020-02-27 08:25 | Inpatient (IN) | payer MEDICAID ==
[~2020-02-27] VITALS: Ht 180.3 cm; Wt 142.1 kg
[~2020-02-27 08:25] MED LIST changes: +GUAI600T31 PO
--- NOTE | 2020-02-27 08:37 | NUR ---
CONDUCTOR YARD: PT TAKEN TO ROOM 38 VIA WHEELCHAIR, SENIOR ARCHITECT TO PLACE SEIZURE PADS ON BED.
--- NOTE | 2020-02-27 09:08 | NUR ---
PT RESTING IN BED, SEIZURE PAD IN PLACE, PT ON MONITORS. PT STATES HAS NOT BEEN TAKING ANY OF HIS MEDICATIONS X5 DAYS. PT STATES TODAY EPIGASTRIC AND SUBSTERNAL CP, SOB, WELL FLUID RETENTION. PT WITH SLIGHTLY LABORED BREATHING, HOWEVER SPEAKING IN FULL SENTANCES AND PROTECING OWN AIRWAY WELL. IV STARTED. PT AWAITING ERMD ASSESSMENT.
[2020-02-27] MEDS ORDERED: ASPIRIN 81 MG TABLET CHEW ONE (09:14)
[2020-02-27 09:30] LABS: BASOPHILS # (AUTO) 0.05 x10^3/uL (0-0.1); BASOPHILS % (AUTO) 0 % (0-1); EOSINOPHILS # (AUTO) 0.06 x10^3/uL (0-0.4); EOSINOPHILS % (AUTO) 1 % (1-7); LYMPHOCYTES # (AUTO) 2.12 x10^3/uL (1-3.4); LYMPHOCYTES % (AUTO) 17 % (22-44); MD NO; MEAN CORPUSCULAR HEMOGLOBIN 28.3 pg (27.5-34.5); MEAN CORPUSCULAR HGB CONC 32.7 g/dL (33.2-36.2); MEAN CORPUSCULAR VOLUME 86.7 fL (81-97); MEAN PLATELET VOLUME 8.7 fL (7.4-10.4); MONOCYTES # (AUTO) 0.89 x10^3/uL (0.2-0.8); MONOCYTES % (AUTO) 7 % (2-9); NEUTROPHILS # (AUTO) 9.27 x10^3/uL (1.8-6.8); NEUTROPHILS % (AUTO) 75 % (42-75); PLATELET COUNT 250 x10^3/uL (130-400); RED BLOOD COUNT 4.67 x10^6/uL (4.38-5.82); RED CELL DISTRIBUTION WIDTH 18.5 % (9.4-14.8)
[2020-02-27] MEDS ORDERED: ASPIRIN 81 MG TABLET CHEW PO ONE (09:30)
[2020-02-27 09:42] LABS: ALANINE AMINOTRANSFERASE 47 U/L (12-78); ALBUMIN 3.2 g/dL (3.4-5.0); ANION GAP 11 mmol/L (5-15); CALCIUM 8.5 mg/dL (8.5-10.1); CHLORIDE 114 mmol/L (98-107)
[2020-02-27 09:47] LABS: ALKALINE PHOSPHATASE 91 U/L (45-117); BILIRUBIN,TOTAL 0.4 mg/dL (0.2-1.0); CREATININE 1.13 mg/dL (0.7-1.3); TOTAL PROTEIN 6.9 g/dL (6.4-8.2)
[2020-02-27] MEDS ORDERED: SODIUM CHLORIDE FLUSH 10ML SYR IVF ONE (10:30)
[2020-02-27] MEDS ORDERED: FUROSEMIDE 40 MG/4 ML IV ONE (10:30)
--- NOTE | 2020-02-27 10:34 | NUR ---
PT RESTING IN BED. DR. BUCHANAN AT BEDSIDE FOR RE ASSESSMENT. PT REMAINS ON MONITORS, VSS. PT UNABLE TO URINATE, AWARE NEEDS URINE SAMPLE. CONT TO MONITOR.
[2020-02-27] MEDS ORDERED: FUROSEMIDE 40 MG/4 ML ONE (10:45)
--- NOTE | 2020-02-27 10:54 | NUR ---
PT MEDICATED WITH LASIX PER ORDERS, URINAL AT BEDSIDE. PT AWARE NEEDS UA.
--- NOTE | 2020-02-27 11:24 | NUR ---
U/A COLLECTED, SENT TO LABS.
--- NOTE | 2020-02-27 11:41 | NUR ---
REPORT GIVEN TO SOM KIMBALL. PT OF TO TRANSFER TO FLOOR.
[2020-02-27 11:48] LABS: MICROSCOPIC NOT IND
[2020-02-27 11:57] LABS: AMPHETAMINE SCREEN, URINE Negative (Negative); BARBITURATE SCREEN, URINE Negative (Negative); BENZODIAZEPINE SCREEN, URINE Negative (Negative); CANNABINOID SCREEN, URINE Positive (Negative); COCAINE SCREEN, URINE Negative (Negative); METHADONE SCREEN, URINE Negative (Negative); OPIATE SCREEN, URINE Negative (Negative)
--- NOTE | 2020-02-27 12:06 | NUR ---
PT TO FLOOR BED. PT HAS ALL OWN BELONGINGS UPON TRANSFER.
[2020-02-27 13:44] VITALS: BP 115/81
[2020-02-27] MEDS ORDERED: GUAIFENESIN ER 600 MG TABLET PO PRN (14:00)
[2020-02-27] MEDS ORDERED: CYCLOBENZAPRINE 10 MG TABLET PO PRN (14:00)
[2020-02-27] MEDS ORDERED: hydrALAzine 20 MG/ML, 1ML IVPush PRN (14:00)
[2020-02-27] MEDS ORDERED: DOCUSATE 100 MG CAPSULE PO PRN (14:00)
[2020-02-27] MEDS ORDERED: ONDANSETRON 2MG/ML, 2ML IVPush PRN (14:00)
[2020-02-27] MEDS ORDERED: BISACODYL 10 MG SUPP PR PRN (14:00)
[2020-02-27] MEDS ORDERED: ACETAMINOPHEN 325 MG TABLET PO PRN (14:00)
[2020-02-27] MEDS ORDERED: POLYETHYLENE GLYCOL 17 GM PACKET PO PRN (14:00)
[2020-02-27 14:36] LABS: HCT (SEDRATE) 41.1 % (39.2-51.8)
[2020-02-27 14:44] LABS: FREE T4 (FREE THYROXINE) 1.26 ng/dL (0.76-1.46); TROPONIN I 0.106 ng/mL (0.000-0.045)
[2020-02-27] MEDS: OXYcodone IR 5MG TABLET PO PRN ×3 (15:01→20:32)
[2020-02-27] MEDS: PANTOPRAZOLE 40MG TABLET PO SCH (15:02)
[2020-02-27] MEDS: SUCRALFATE 1 GM TABLET PO SCH ×2 (15:02→20:23)
[2020-02-27] MEDS: FUROSEMIDE 40 MG/4 ML IV SCH (16:09)
[2020-02-27 19:06] VITALS: BP 117/84
[2020-02-27 19:48] LABS: TROPONIN I 0.116 ng/mL (0.000-0.045)
[2020-02-27] MEDS: CARVEDILOL 3.125 MG TABLET PO SCH (20:20)
[2020-02-27] MEDS: APIXABAN 5 MG TABLET PO SCH (20:23)
[2020-02-28 00:27] VITALS: BP 128/90
[2020-02-28] MEDS: OXYcodone IR 5MG TABLET PO PRN ×2 (01:15→16:36)
[2020-02-28] MEDS: PANTOPRAZOLE 40MG TABLET PO SCH ×2 (06:11→16:00)
[2020-02-28 06:30] LABS: BASOPHILS # (AUTO) 0.05 x10^3/uL (0-0.1); BASOPHILS % (AUTO) 0 % (0-1); EOSINOPHILS # (AUTO) 0.08 x10^3/uL (0-0.4); EOSINOPHILS % (AUTO) 1 % (1-7); LYMPHOCYTES # (AUTO) 3.55 x10^3/uL (1-3.4); LYMPHOCYTES % (AUTO) 25 % (22-44); MD NO; MEAN CORPUSCULAR HEMOGLOBIN 28.5 pg (27.5-34.5); MEAN CORPUSCULAR HGB CONC 32.9 g/dL (33.2-36.2); MEAN CORPUSCULAR VOLUME 86.8 fL (81-97); MEAN PLATELET VOLUME 8.4 fL (7.4-10.4); MONOCYTES # (AUTO) 1.05 x10^3/uL (0.2-0.8); MONOCYTES % (AUTO) 8 % (2-9); NEUTROPHILS # (AUTO) 9.27 x10^3/uL (1.8-6.8); NEUTROPHILS % (AUTO) 66 % (42-75); PLATELET COUNT 257 x10^3/uL (130-400); RED BLOOD COUNT 4.68 x10^6/uL (4.38-5.82); RED CELL DISTRIBUTION WIDTH 18.5 % (9.4-14.8)
[2020-02-28 06:40] LABS: ALBUMIN 3.2 g/dL (3.4-5.0); ANION GAP 5 mmol/L (5-15); CHLORIDE 108 mmol/L (98-107)
[2020-02-28 06:43] LABS: ALANINE AMINOTRANSFERASE 40 U/L (12-78); ALKALINE PHOSPHATASE 80 U/L (45-117); BILIRUBIN,TOTAL 0.5 mg/dL (0.2-1.0); CHOL/HDL RATIO 5.7; CHOLESTEROL, TOTAL 172 mg/dL (140-239); CREATININE 1.14 mg/dL (0.7-1.3); HDL CHOL % 17 % (26-37); HDL CHOLESTEROL (DIRECT) 30 mg/dL (40-60); LDL CHOLESTEROL,CALCULATED 96 mg/dL (54-169); LDL/HDL RATIO 3.2 (0.5-3.0); TOTAL PROTEIN 7.2 g/dL (6.4-8.2); TRIGLYCERIDES 228 mg/dL (50-200); VLDL CHOLESTEROL 46 mg/dL (0-25)
[2020-02-28 06:45] VITALS: BP_SYST 114; BP_SYST 174; BP_DIAS 62; BP_DIAS 72
[2020-02-28] MEDS: SUCRALFATE 1 GM TABLET PO SCH ×4 (07:00→21:30)
[2020-02-28] MEDS: CARVEDILOL 3.125 MG TABLET PO SCH ×2 (08:38→21:31)
[2020-02-28] MEDS: AMIODARONE 200 MG TABLET PO SCH (08:39)
[2020-02-28] MEDS: FUROSEMIDE 40 MG/4 ML IV SCH ×2 (08:40→16:18)
[2020-02-28] MEDS: SPIRONOLACTONE 25 MG TABLET PO SCH (08:40)
[2020-02-28] MEDS: LISINOPRIL 5 MG TABLET PO SCH (08:40)
[2020-02-28] MEDS: APIXABAN 5 MG TABLET PO SCH ×2 (08:41→21:31)
[2020-02-28 12:59] LABS: TROPONIN I 0.097 ng/mL (0.000-0.045)
[2020-02-28 13:39] VITALS: BP 108/74
[2020-02-28 17:38] LABS: TROPONIN I 0.089 ng/mL (0.000-0.045)
[2020-02-28 19:19] VITALS: BP 101/68
[2020-02-29 02:00] VITALS: BP 121/84
[2020-02-29 05:27] LABS: BASOPHILS # (AUTO) 0.04 x10^3/uL (0-0.1); BASOPHILS % (AUTO) 0 % (0-1); EOSINOPHILS % (AUTO) 1 % (1-7); LYMPHOCYTES # (AUTO) 3.03 x10^3/uL (1-3.4); LYMPHOCYTES % (AUTO) 25 % (22-44); MD NO; MEAN CORPUSCULAR HEMOGLOBIN 28.4 pg (27.5-34.5); MEAN CORPUSCULAR VOLUME 86.1 fL (81-97); MEAN PLATELET VOLUME 8.7 fL (7.4-10.4); MONOCYTES # (AUTO) 0.88 x10^3/uL (0.2-0.8); MONOCYTES % (AUTO) 7 % (2-9); NEUTROPHILS # (AUTO) 7.89 x10^3/uL (1.8-6.8); NEUTROPHILS % (AUTO) 66 % (42-75); PLATELET COUNT 238 x10^3/uL (130-400); RED BLOOD COUNT 4.45 x10^6/uL (4.38-5.82); RED CELL DISTRIBUTION WIDTH 18.4 % (9.4-14.8)
[2020-02-29 05:38] LABS: CHLORIDE 105 mmol/L (98-107)
[2020-02-29 05:44] LABS: ANION GAP 8 mmol/L (5-15); CALCIUM 8.5 mg/dL (8.5-10.1); CREATININE 1.21 mg/dL (0.7-1.3)
[2020-02-29] MEDS: SUCRALFATE 1 GM TABLET PO SCH ×2 (07:00→11:32)
[2020-02-29] MEDS: FUROSEMIDE 40 MG/4 ML IV SCH (11:30)
[2020-02-29] MEDS: LISINOPRIL 5 MG TABLET PO SCH (11:30)
[2020-02-29] MEDS: SPIRONOLACTONE 25 MG TABLET PO SCH (11:31)
[2020-02-29] MEDS: AMIODARONE 200 MG TABLET PO SCH (11:31)
[2020-02-29] MEDS: APIXABAN 5 MG TABLET PO SCH (11:32)
[2020-02-29] MEDS: CARVEDILOL 3.125 MG TABLET PO SCH (11:32)
[2020-02-29] MEDS: PANTOPRAZOLE 40MG TABLET PO SCH (11:37)
[2020-02-29] MEDS ORDERED: FURO40TA6 PO (13:08)
[2020-02-29] MEDS ORDERED: AMIO200T42 PO (13:08)
[2020-02-29] MEDS ORDERED: ALBU18HF INH (13:08)
[2020-02-29] MEDS ORDERED: APIX5TAB PO (13:08)
[2020-02-29] MEDS ORDERED: LISI5TAB7 PO (13:08)
[2020-02-29] MEDS ORDERED: CARV3.1212 PO (13:08)
[2020-02-29] MEDS ORDERED: SPIR25TA PO (13:08)
== END 2020-02-29 15:05 | disposition home or self-care (01) | DRG 293 ==
LOC: ED 08:56 → EDIP 10:51 → 4WST 12:02 → DCLOUNGE 02-29 14:54
PROVIDERS: ADMIT Internal Medicine Infectious Disease; ATTEND Hospitalist
DX: I11.0 Hypertensive heart disease with heart failure (principal); D72.829 Elevated white blood cell count, unspecified; I50.23 Acute on chronic systolic (congestive) heart failure; I42.8 Other cardiomyopathies; E03.9 Hypothyroidism, unspecified; E11.9 Type 2 diabetes mellitus without complications; I25.2 Old myocardial infarction; I48.91 Unspecified atrial fibrillation; J45.909 Unspecified asthma, uncomplicated; R09.02 Hypoxemia; Z59.0 Homelessness; Z79.01 Long term (current) use of anticoagulants; Z82.49 Family history of ischemic heart disease and other diseases of the circulatory system; Z87.891 Personal history of nicotine dependence; Z91.14 Patient's other noncompliance with medication regimen; Z90.49 Acquired absence of other specified parts of digestive tract
CPT/HCPCS: 36415; 71045; 80048; 80053; 80061; 80307; 81003; 83036; 83880; 84439; 84443; 84484; 85025; 85651; 93005; 96374; 99285; G0378; J1940; J2405

== ENCOUNTER 2020-05-15 10:06 | Inpatient (IN) | payer MEDICAID ==
[~2020-05-15] VITALS: Ht 180.3 cm; Wt 142.2 kg
[2020-05-15] MEDS ORDERED: LEVE500T53 PO (10:32)
[2020-05-15] MEDS ORDERED: SODIUM CHLORIDE FLUSH 10ML SYR IVF ONE (11:00)
--- NOTE | 2020-05-15 11:04 | NUR ---
CALLED [facility] TO SEE IF WILL ACCEPT PT WITH [facility] INSURANCE. RECEIVED VERBAL DENIAL FROM JUVENAL.
--- NOTE | 2020-05-15 11:05 | NUR ---
CALLED IDRIS MCKEON AT [facility]. DENIED TRANSFER OF PT WITH MEDICAID [facility].
[2020-05-15 11:12] LABS: BASOPHILS # (AUTO) 0.04 x10^3/uL (0-0.1); BASOPHILS % (AUTO) 0 % (0-1); EOSINOPHILS # (AUTO) 0.06 x10^3/uL (0-0.4); EOSINOPHILS % (AUTO) 1 % (1-7); LYMPHOCYTES # (AUTO) 1.95 x10^3/uL (1-3.4); LYMPHOCYTES % (AUTO) 20 % (22-44); MD NO; MEAN CORPUSCULAR HGB CONC 31.8 g/dL (33.2-36.2); MEAN CORPUSCULAR VOLUME 88.2 fL (81-97); MEAN PLATELET VOLUME 8.1 fL (7.4-10.4); MONOCYTES # (AUTO) 0.75 x10^3/uL (0.2-0.8); MONOCYTES % (AUTO) 8 % (2-9); NEUTROPHILS # (AUTO) 6.94 x10^3/uL (1.8-6.8); NEUTROPHILS % (AUTO) 71 % (42-75); PLATELET COUNT 276 x10^3/uL (130-400); RED BLOOD COUNT 4.59 x10^6/uL (4.38-5.82)
[2020-05-15] MEDS ORDERED: MORPHINE SULFATE 4 MG/ML, 1ML ONE ×2 (11:17→18:20)
[2020-05-15 11:20] LABS: INTERNATIONAL NORMALIZED RATIO 1.23 (0.93-1.1); PROTHROMBIN TIME 12.7 Seconds (9.6-11.5)
[2020-05-15 11:22] LABS: ALANINE AMINOTRANSFERASE 48 U/L (12-78); ALBUMIN 3.1 g/dL (3.4-5.0); ANION GAP 6 mmol/L (5-15); CALCIUM 8.5 mg/dL (8.5-10.1); CHLORIDE 111 mmol/L (98-107); CREATININE 1.04 mg/dL (0.7-1.3)
[2020-05-15 11:27] LABS: ALKALINE PHOSPHATASE 109 U/L (45-117); BILIRUBIN,TOTAL 1.2 mg/dL (0.2-1.0)
[2020-05-15 11:29] LABS: TROPONIN I 0.201 ng/mL (0.000-0.045)
[2020-05-15] MEDS: MORPHINE SULFATE 4 MG/ML, 1ML IVPush PRN ×2 (11:32→18:21)
--- NOTE | 2020-05-15 11:36 | NUR ---
MEDICATED FOR SHARP INTERMITTENT CP
[2020-05-15] MEDS ORDERED: FUROSEMIDE 40 MG/4 ML ONE ×2 (11:46→17:57)
[2020-05-15] MEDS ORDERED: ASPIRIN 81 MG TABLET CHEW ONE (11:46)
[2020-05-15] MEDS ORDERED: ASPIRIN 81 MG TABLET CHEW PO ONE (12:00)
[2020-05-15] MEDS ORDERED: FUROSEMIDE 40 MG/4 ML IV ONE (12:00)
--- NOTE | 2020-05-15 12:49 | NUR ---
PT LYING ON SIDE RESTING. CONTINUE TO MONITOR. MEDICATED NOTED ON NOV.
[2020-05-15] MEDS ORDERED: hydrALAzine 20 MG/ML, 1ML IVPush PRN (15:00)
[2020-05-15 15:49] LABS: TROPONIN I 0.161 ng/mL (0.000-0.045)
--- NOTE | 2020-05-15 16:14 | NUR ---
PT SLEEPING WHEN LUNCH BROUGHT IN. CONTINUE TO MONITOR
[2020-05-15] MEDS: FUROSEMIDE 40 MG/4 ML IV SCH (17:59)
--- NOTE | 2020-05-15 18:09 | NUR ---
PT FRUSTRUATED THAT HE IS NOT IN ROOM UPSTAIRS. MEDICATED WITH LASIX NOTED ON NOV.
--- NOTE | 2020-05-15 19:10 | NUR ---
REPORT OF PT FROM JIGAR PAULINO AND ASSUMING CARE OF PT AT THIS TIME.
--- NOTE | 2020-05-15 21:16 | NUR ---
REPORT OF PT TO RN TORSTEN. ALL QUESTIONS ANSWERED. TECH PAGED FOR TRANSPORT OF PT TO FLOOR A THIS TIME. VSS PRIOR TO TRANSPORT OF PT TO FLOOR.
[2020-05-15 21:20] LABS: TROPONIN I 0.164 ng/mL (0.000-0.045)
[2020-05-15 21:34] VITALS: BP 115/83
[2020-05-15] MEDS: APIXABAN 5 MG TABLET PO SCH (23:12)
[2020-05-15] MEDS: CARVEDILOL 3.125 MG TABLET PO SCH (23:13)
[2020-05-15] MEDS: ALBUTEROL HFA 90 MCG/SPRAY INH SCH (23:26)
[2020-05-16] VITALS (8 sets, daily range): BP systolic 100–138; BP diastolic 62–84
[2020-05-16 05:21] LABS: BASOPHILS # (AUTO) 0.05 x10^3/uL (0-0.1); BASOPHILS % (AUTO) 1 % (0-1); EOSINOPHILS % (AUTO) 1 % (1-7); LYMPHOCYTES # (AUTO) 2.51 x10^3/uL (1-3.4); LYMPHOCYTES % (AUTO) 27 % (22-44); MD NO; MEAN CORPUSCULAR HEMOGLOBIN 27.6 pg (27.5-34.5); MEAN CORPUSCULAR HGB CONC 31.1 g/dL (33.2-36.2); MEAN CORPUSCULAR VOLUME 88.8 fL (81-97); MEAN PLATELET VOLUME 8.3 fL (7.4-10.4); MONOCYTES % (AUTO) 8 % (2-9); NEUTROPHILS # (AUTO) 5.97 x10^3/uL (1.8-6.8); NEUTROPHILS % (AUTO) 64 % (42-75); PLATELET COUNT 275 x10^3/uL (130-400); RED BLOOD COUNT 4.78 x10^6/uL (4.38-5.82); RED CELL DISTRIBUTION WIDTH 17.6 % (9.4-14.8)
[2020-05-16 05:35] LABS: CHLORIDE 108 mmol/L (98-107)
[2020-05-16 05:39] LABS: ANION GAP 6 mmol/L (5-15); CALCIUM 8.9 mg/dL (8.5-10.1); CREATININE 1.14 mg/dL (0.7-1.3)
[2020-05-16] MEDS: CARVEDILOL 3.125 MG TABLET PO SCH (08:50)
[2020-05-16] MEDS: FUROSEMIDE 40 MG/4 ML IV SCH (08:50)
[2020-05-16] MEDS: ALBUTEROL HFA 90 MCG/SPRAY INH SCH ×2 (08:51→20:08)
[2020-05-16] MEDS: SPIRONOLACTONE 25 MG TABLET PO SCH (08:51)
[2020-05-16] MEDS: APIXABAN 5 MG TABLET PO SCH ×2 (08:51→20:08)
[2020-05-16] MEDS: LEVETIRACETAM 500 MG TABLET PO SCH (08:51)
[2020-05-16] MEDS: LISINOPRIL 5 MG TABLET PO SCH (08:51)
[2020-05-16] MEDS: AMIODARONE 200 MG TABLET PO SCH (08:51)
[2020-05-16] MEDS: SENNA/DOCUSATE TABLET PO SCH (08:53)
[2020-05-16] MEDS ORDERED: NITROGLYCERIN 0.4 MG BOTTLE (25 TABS) SL PRN (12:30)
[2020-05-16] MEDS: ACETAMINOPHEN 325 MG TABLET PO PRN (14:56)
[2020-05-16] MEDS ORDERED: ALBUTEROL HFA 90 MCG/SPRAY INH PRN (16:00)
[2020-05-16] MEDS: CARVEDILOL 6.25 MG TABLET PO SCH (18:00)
[2020-05-16] MEDS: ONDANSETRON 2MG/ML, 2ML IVPush PRN (18:02)
[2020-05-16] MEDS ORDERED: DIPHENHYDRAMINE 25 MG CAPSULE PO ONE (23:30)
[2020-05-17 00:05] VITALS: BP 114/77
[2020-05-17] MEDS: ONDANSETRON 2MG/ML, 2ML IVPush PRN ×2 (05:25→09:56)
[2020-05-17] MEDS: CARVEDILOL 6.25 MG TABLET PO SCH ×2 (05:25→18:03)
[2020-05-17 07:25] VITALS: BP 100/43
[2020-05-17] MEDS: SPIRONOLACTONE 25 MG TABLET PO SCH (08:11)
[2020-05-17] MEDS: AMIODARONE 200 MG TABLET PO SCH (08:12)
[2020-05-17] MEDS: APIXABAN 5 MG TABLET PO SCH ×2 (08:12→20:22)
[2020-05-17] MEDS: LEVETIRACETAM 500 MG TABLET PO SCH (08:12)
[2020-05-17] MEDS: SENNA/DOCUSATE TABLET PO SCH (08:13)
[2020-05-17] MEDS: FUROSEMIDE 40 MG/4 ML IV SCH (08:13)
[2020-05-17] MEDS: LISINOPRIL 5 MG TABLET PO SCH (09:00)
[2020-05-17] MEDS: ALBUTEROL HFA 90 MCG/SPRAY INH SCH ×2 (09:56→20:22)
[2020-05-17 12:14] VITALS: BP 111/81
[2020-05-17] MEDS ORDERED: LORazepam 2 MG/ML, 1ML IVPush PRN (12:30)
[2020-05-17 13:34] LABS: ALBUMIN 3.4 g/dL (3.4-5.0)
[2020-05-17 13:39] LABS: BILIRUBIN, DIRECT 0.8 mg/dL (0.1-0.2); BILIRUBIN,INDIRECT 1.2 mg/dL (0.0-2.0); TOTAL PROTEIN 7.5 g/dL (6.4-8.2)
[2020-05-17 17:42] VITALS: BP 124/85
[2020-05-17 18:45] VITALS: BP 109/73
[2020-05-17] MEDS: ACETAMINOPHEN 325 MG TABLET PO PRN (20:22)
[2020-05-18 01:21] VITALS: BP 132/79
[2020-05-18] MEDS: CARVEDILOL 6.25 MG TABLET PO SCH ×2 (05:26→17:39)
[2020-05-18 07:14] VITALS: BP 91/68
[2020-05-18] MEDS: LISINOPRIL 5 MG TABLET PO SCH (09:00)
[2020-05-18] MEDS: SENNA/DOCUSATE TABLET PO SCH (09:00)
[2020-05-18] MEDS: ALBUTEROL HFA 90 MCG/SPRAY INH SCH ×2 (09:26→21:00)
[2020-05-18] MEDS: AMIODARONE 200 MG TABLET PO SCH (09:27)
[2020-05-18] MEDS: LEVETIRACETAM 500 MG TABLET PO SCH (09:27)
[2020-05-18] MEDS: FUROSEMIDE 40 MG/4 ML IV SCH (09:27)
[2020-05-18] MEDS: APIXABAN 5 MG TABLET PO SCH ×2 (09:28→21:00)
[2020-05-18] MEDS: SPIRONOLACTONE 25 MG TABLET PO SCH (09:28)
[2020-05-18 12:14] VITALS: BP 117/87
[2020-05-18 17:33] VITALS: BP 101/69
[2020-05-18 20:25] VITALS: BP 108/77
[2020-05-18] MEDS ORDERED: LORazepam 2 MG/ML, 1ML IVPush ONE (20:30)
[2020-05-19 00:43] VITALS: BP 120/80
[2020-05-19 05:12] LABS: CREATININE 1.27 mg/dL (0.7-1.3)
[2020-05-19] MEDS: CARVEDILOL 6.25 MG TABLET PO SCH (05:18)
[2020-05-19 07:02] VITALS: BP 104/72
[2020-05-19] MEDS: SENNA/DOCUSATE TABLET PO SCH (09:00)
[2020-05-19] MEDS: LISINOPRIL 5 MG TABLET PO SCH (09:00)
[2020-05-19] MEDS: FUROSEMIDE 40 MG/4 ML IV SCH (09:10)
[2020-05-19] MEDS: ALBUTEROL HFA 90 MCG/SPRAY INH SCH (09:12)
[2020-05-19] MEDS: SPIRONOLACTONE 25 MG TABLET PO SCH (09:12)
[2020-05-19] MEDS: APIXABAN 5 MG TABLET PO SCH (09:12)
[2020-05-19] MEDS: AMIODARONE 200 MG TABLET PO SCH (09:12)
[2020-05-19] MEDS: LEVETIRACETAM 500 MG TABLET PO SCH (09:13)
== END 2020-05-19 15:19 | disposition home or self-care (01) | DRG 291 ==
LOC: ED 10:49 → EDIP 11:46 → 4WST 21:27 → DCLOUNGE 05-19 15:09
PROVIDERS: ADMIT Internal Medicine; ATTEND Internal Medicine
DX: I13.0 Hypertensive heart and chronic kidney disease with heart failure and stage 1 through stage 4 chronic kidney disease, or unspecified chronic kidney disease (principal); I50.43 Acute on chronic combined systolic (congestive) and diastolic (congestive) heart failure; Z68.41 Body mass index [BMI] 40.0-44.9, adult; E66.01 Morbid (severe) obesity due to excess calories; I42.9 Cardiomyopathy, unspecified; G47.33 Obstructive sleep apnea (adult) (pediatric); I48.0 Paroxysmal atrial fibrillation; N18.3 Chronic kidney disease, stage 3 (moderate); R56.9 Unspecified convulsions; Z86.718 Personal history of other venous thrombosis and embolism; Z79.01 Long term (current) use of anticoagulants; Z59.0 Homelessness; Z91.19 Patient's noncompliance with other medical treatment and regimen; Z91.14 Patient's other noncompliance with medication regimen
CPT/HCPCS: 36415; 71045; 80048; 80053; 80076; 80177; 82565; 83690; 83735; 83880; 84100; 84484; 85025; 85610; 93005; G0378; J1940; J2405; J2060; J2270; Q0163

== ENCOUNTER 2020-06-21 18:18 | Inpatient (IN) | payer MEDICAID ==
[~2020-06-21] VITALS: Ht 180.3 cm; Wt 124.9 kg
[~2020-06-21 18:18] MED LIST changes: +LEVE500T53 PO; -PANT40TA5 PO; +PANT40TA6 PO
[2020-06-21] MEDS ORDERED: SODIUM CHLORIDE FLUSH 10ML SYR IVF ONE (19:00)
--- NOTE | 2020-06-21 19:13 | NUR ---
THIS IS A 35 YO M W/ C/O SEIZURE YESTERDAY RESULTING IN GLF. PT REPORTS NOW, CP/SOB, NICHOLSON, DIZZY AND BLURRY VISION IN LT EYE. LT EYE TRAUMA OBSERVED. PT REPORTS HE HAS BEEN TAKING HOME MEDS INCLUDING KEPPRA. PIV STARTED, LABS DRAWN. CCOLLAR APPLIED BY NEW PRODUCT TRAINER. SEIZURE PRECAUTIONS IN PLACE.
[2020-06-21] MEDS ORDERED: LORazepam 2 MG/ML, 1ML ONE (19:22)
--- NOTE | 2020-06-21 19:24 | NUR ---
PT TO CT.
[2020-06-21 19:46] LABS: ALANINE AMINOTRANSFERASE 47 U/L (12-78); ALBUMIN 3.6 g/dL (3.4-5.0); ANION GAP 7 mmol/L (5-15); CALCIUM 9.9 mg/dL (8.5-10.1); CHLORIDE 106 mmol/L (98-107); CREATININE 1.05 mg/dL (0.7-1.3)
[2020-06-21 19:51] LABS: ALKALINE PHOSPHATASE 124 U/L (45-117); BILIRUBIN,TOTAL 0.6 mg/dL (0.2-1.0); TOTAL PROTEIN 8.8 g/dL (6.4-8.2); TROPONIN I 0.036 ng/mL (0.000-0.045)
--- NOTE | 2020-06-21 19:58 | NUR ---
PT RESTING ON GURNEY W/ CALL LIGHT IN REACH AND SIDE RAILS UPX2. SEIZURE PRECAUTIONS IN PLACE. PT TACHYCARDIC, OTHER VS WDL. AWAITING RESULTS.
[2020-06-21 20:26] LABS: MEAN CORPUSCULAR HEMOGLOBIN 27.3 pg (27.5-34.5); MEAN CORPUSCULAR HGB CONC 32.2 g/dL (33.2-36.2); MEAN PLATELET VOLUME 8.6 fL (7.4-10.4); PLATELET COUNT 255 x10^3/uL (130-400); RED BLOOD COUNT 5.77 x10^6/uL (4.38-5.82); RED CELL DISTRIBUTION WIDTH 19.1 % (9.4-14.8)
--- NOTE | 2020-06-21 20:30 | NUR ---
PT RESTING ON GURNEY W/ CALL LIGHT IN REACH AND SIDE RAILS UPX2. SEIZURE PRECAUTIONS IN PLACE. PT TACHYCARDIC, OTHER VS WDL. AWAITING RESULTS.
--- NOTE | 2020-06-21 21:00 | NUR ---
PT RESTING ON GURNEY W/ CALL LIGHT IN REACH AND SIDE RAILS UPX2. SEIZURE PRECAUTIONS IN PLACE. PT TACHYCARDIC, OTHER VS WDL. AWAITING RESULTS.
[2020-06-21 21:03] LABS: BASOPHILS # (AUTO) 0.04 x10^3/uL (0-0.1); BASOPHILS % (AUTO) 0 % (0-1); EOSINOPHILS # (AUTO) 0.38 x10^3/uL (0-0.4); EOSINOPHILS % (AUTO) 3 % (1-7); LYMPHOCYTES # (AUTO) 2.68 x10^3/uL (1-3.4); LYMPHOCYTES % (AUTO) 18 % (22-44); MD SCAN; MONOCYTES # (AUTO) 0.92 x10^3/uL (0.2-0.8); MONOCYTES % (AUTO) 6 % (2-9); NEUTROPHILS # (AUTO) 11.36 x10^3/uL (1.8-6.8); NEUTROPHILS % (AUTO) 74 % (42-75)
--- NOTE | 2020-06-21 21:26 | NUR ---
CCOLLAR REMOVED, OK PER MARVIN GOMEZ.
[2020-06-21] MEDS ORDERED: ONDANSETRON 2MG/ML, 2ML ONE (21:42)
[2020-06-21] MEDS ORDERED: MORPHINE SULFATE 4 MG/ML, 1ML ONE ×2 (21:42→22:20)
--- NOTE | 2020-06-21 21:44 | NUR ---
MED TANYA FROM PHARMACY.
[2020-06-21] MEDS: MORPHINE SULFATE 4 MG/ML, 1ML IVPush PRN ×2 (21:49→22:32)
[2020-06-21] MEDS ORDERED: LEVETIRACETAM 1,000 MG in SODIUM CHLORIDE 0.9% 100 ML IV ONE (22:00)
[2020-06-21] MEDS ORDERED: ONDANSETRON 2MG/ML, 2ML IVPush ONE (22:00)
--- NOTE | 2020-06-21 22:06 | NUR ---
MED RECEIVED FROM PHARM.
--- NOTE | 2020-06-21 22:14 | NUR ---
PT RESTING ON [employer] W/ CALL LIGHT IN REACH. VSS, NADN. SEIZURE PRECUATIONS IN PLACE. PT REPORTS NO RELIEF IN PAIN AFTER MEDS. AWAITING MD RODAS.
--- NOTE | 2020-06-21 22:22 | NUR ---
REPORT GIVEN TO LATISHA KIMBALL.
[2020-06-21] MEDS ORDERED: PROPARACAINE OPHTH 0.5%, 15ML ONE ×2 (22:51→22:54)
[2020-06-21] MEDS ORDERED: PROPARACAINE OPHTH 0.5%, 15ML EACHEYE ONE (23:00)
--- NOTE | 2020-06-22 00:19 | NUR ---
Report called to Ammy KIMBALL to assume care upon transfer to [facility]
[2020-06-22] MEDS ORDERED: PROMETHAZINE 25 MG/ML, 1ML IM PRN (00:30)
[2020-06-22] MEDS ORDERED: BISACODYL 10 MG SUPP PR PRN (00:30)
[2020-06-22] MEDS ORDERED: hydrALAzine 20 MG/ML, 1ML IVPush PRN (00:30)
[2020-06-22] MEDS ORDERED: ONDANSETRON ODT 4 MG PO PRN (00:30)
[2020-06-22] MEDS ORDERED: ONDANSETRON 2MG/ML, 2ML IVPush PRN (00:30)
[2020-06-22] MEDS ORDERED: DOCUSATE 100 MG CAPSULE PO PRN (00:30)
[2020-06-22] MEDS ORDERED: morphine SULFATE 10 MG/ML, 1ML IVPush PRN (00:30)
[2020-06-22] MEDS ORDERED: POLYETHYLENE GLYCOL 17 GM PACKET PO PRN (00:30)
[2020-06-22 01:14] VITALS: BP 124/86
[2020-06-22] MEDS: OXYcodone IR 5MG TABLET PO PRN ×3 (01:55→20:34)
[2020-06-22 06:32] VITALS: BP 103/70
[2020-06-22] MEDS: FUROSEMIDE 40 MG TABLET PO SCH (09:00)
[2020-06-22] MEDS: CARVEDILOL 3.125 MG TABLET PO SCH ×2 (09:00→20:35)
[2020-06-22] MEDS: AMIODARONE 200 MG TABLET PO SCH (09:00)
[2020-06-22] MEDS: LISINOPRIL 5 MG TABLET PO SCH (09:00)
[2020-06-22] MEDS: LEVETIRACETAM 1,000 MG in SODIUM CHLORIDE 0.9% 100 ML IV SCH ×2 (11:37→23:31)
[2020-06-22 15:00] VITALS: BP 126/76
[2020-06-22 20:22] VITALS: BP 109/69
[2020-06-22] MEDS: APIXABAN 5 MG TABLET PO SCH (20:35)
[2020-06-23 01:31] VITALS: BP 103/79
[2020-06-23 06:14] LABS: CHLORIDE 105 mmol/L (98-107)
[2020-06-23 06:29] LABS: ALANINE AMINOTRANSFERASE 30 U/L (12-78); ALBUMIN 2.9 g/dL (3.4-5.0); ALKALINE PHOSPHATASE 99 U/L (45-117); ANION GAP 6 mmol/L (5-15); BILIRUBIN,TOTAL 0.5 mg/dL (0.2-1.0); CALCIUM 9.3 mg/dL (8.5-10.1); CHOL/HDL RATIO 4.9; CHOLESTEROL, TOTAL 182 mg/dL (140-239); CREATININE 0.88 mg/dL (0.7-1.3); HDL CHOL % 20 % (26-37); HDL CHOLESTEROL (DIRECT) 37 mg/dL (40-60); LDL CHOLESTEROL,CALCULATED 111 mg/dL (54-169); TOTAL PROTEIN 6.9 g/dL (6.4-8.2); TRIGLYCERIDES 168 mg/dL (50-200); VLDL CHOLESTEROL 34 mg/dL (0-25)
[2020-06-23 06:30] LABS: BASOPHILS # (AUTO) 0.03 x10^3/uL (0-0.1); BASOPHILS % (AUTO) 0 % (0-1); EOSINOPHILS # (AUTO) 0.23 x10^3/uL (0-0.4); EOSINOPHILS % (AUTO) 2 % (1-7); LYMPHOCYTES # (AUTO) 2.76 x10^3/uL (1-3.4); LYMPHOCYTES % (AUTO) 27 % (22-44); MD NO; MEAN CORPUSCULAR HGB CONC 32.4 g/dL (33.2-36.2); MEAN PLATELET VOLUME 8.1 fL (7.4-10.4); MONOCYTES # (AUTO) 0.83 x10^3/uL (0.2-0.8); MONOCYTES % (AUTO) 8 % (2-9); NEUTROPHILS # (AUTO) 6.41 x10^3/uL (1.8-6.8); NEUTROPHILS % (AUTO) 63 % (42-75); PLATELET COUNT 204 x10^3/uL (130-400); RED BLOOD COUNT 4.88 x10^6/uL (4.38-5.82); RED CELL DISTRIBUTION WIDTH 18.2 % (9.4-14.8)
[2020-06-23 09:02] VITALS: BP 95/68
[2020-06-23] MEDS: CARVEDILOL 3.125 MG TABLET PO SCH ×2 (10:09→20:46)
[2020-06-23] MEDS: AMIODARONE 200 MG TABLET PO SCH (10:09)
[2020-06-23] MEDS: APIXABAN 5 MG TABLET PO SCH ×2 (10:10→20:46)
[2020-06-23] MEDS: OXYcodone IR 5MG TABLET PO PRN ×4 (10:10→20:46)
[2020-06-23] MEDS: LISINOPRIL 5 MG TABLET PO SCH (10:45)
[2020-06-23] MEDS: SPIRONOLACTONE 25 MG TABLET PO SCH (11:00)
[2020-06-23] MEDS: FUROSEMIDE 40 MG TABLET PO SCH (11:00)
[2020-06-23] MEDS: LEVETIRACETAM 1,000 MG in SODIUM CHLORIDE 0.9% 100 ML IV SCH (11:00)
[2020-06-23] MEDS: AMPICILLIN/SULBACTAM 3 GM in SODIUM CHLORIDE 0.9% 100 ML IV SCH ×3 (12:13→23:46)
[2020-06-23 13:46] VITALS: BP 114/73
[2020-06-23 19:14] VITALS: BP 109/67
[2020-06-24 00:46] VITALS: BP 114/69
[2020-06-24] MEDS: OXYcodone IR 5MG TABLET PO PRN ×3 (01:12→15:35)
[2020-06-24] MEDS: AMPICILLIN/SULBACTAM 3 GM in SODIUM CHLORIDE 0.9% 100 ML IV SCH ×2 (06:05→11:32)
[2020-06-24 07:30] VITALS: BP 99/64
[2020-06-24] MEDS: CARVEDILOL 3.125 MG TABLET PO SCH (08:23)
[2020-06-24] MEDS: AMIODARONE 200 MG TABLET PO SCH (08:23)
[2020-06-24] MEDS: SPIRONOLACTONE 25 MG TABLET PO SCH (08:24)
[2020-06-24] MEDS: APIXABAN 5 MG TABLET PO SCH (08:24)
[2020-06-24] MEDS: FUROSEMIDE 40 MG TABLET PO SCH (08:24)
[2020-06-24] MEDS ORDERED: LEVETIRACETAM 500 MG TABLET PO SCH (09:00)
[2020-06-24 13:22] VITALS: BP 108/74
[2020-06-24] MEDS ORDERED: AMOX1TAB64 PO (13:52)
[2020-06-24] MEDS ORDERED: OXYC5TAB3 PO (13:52)
[2020-06-24] MEDS ORDERED: FURO40TA6 PO (13:59)
== END 2020-06-24 15:55 | disposition home or self-care (01) | DRG 86 ==
LOC: ED 20:12 → EDIP 23:55 → 4WST 06-22 00:41 → DCLOUNGE 06-24 15:44
PROVIDERS: ADMIT Internal Medicine; ATTEND Hospitalist
DX: S02.19XA Other fracture of base of skull, initial encounter for closed fracture (principal); I13.0 Hypertensive heart and chronic kidney disease with heart failure and stage 1 through stage 4 chronic kidney disease, or unspecified chronic kidney disease; I50.42 Chronic combined systolic (congestive) and diastolic (congestive) heart failure; F05 Delirium due to known physiological condition; D72.829 Elevated white blood cell count, unspecified; E03.9 Hypothyroidism, unspecified; E66.9 Obesity, unspecified; F12.90 Cannabis use, unspecified, uncomplicated; H11.32 Conjunctival hemorrhage, left eye; I08.1 Rheumatic disorders of both mitral and tricuspid valves; G40.909 Epilepsy, unspecified, not intractable, without status epilepticus; G47.33 Obstructive sleep apnea (adult) (pediatric); I48.0 Paroxysmal atrial fibrillation; N18.3 Chronic kidney disease, stage 3 (moderate); S00.03XA Contusion of scalp, initial encounter; S16.1XXA Strain of muscle, fascia and tendon at neck level, initial encounter; W18.30XA Fall on same level, unspecified, initial encounter; Z59.0 Homelessness; Z68.38 Body mass index [BMI] 38.0-38.9, adult; I25.2 Old myocardial infarction; Y93.89 Activity, other specified; Y92.89 Other specified places as the place of occurrence of the external cause; Y99.8 Other external cause status; Z79.01 Long term (current) use of anticoagulants; Z82.49 Family history of ischemic heart disease and other diseases of the circulatory system; Z86.718 Personal history of other venous thrombosis and embolism; Z91.14 Patient's other noncompliance with medication regimen; Z90.49 Acquired absence of other specified parts of digestive tract
CPT/HCPCS: 36415; 70450; 70486; 71045; 72125; 80053; 80061; 80177; 83036; 83735; 83880; 84443; 84484; 85025; 93005; 95819; 96374; 96376; 99285; G0378; J0295; J1953; J2405; J2270

== ENCOUNTER 2020-07-24 20:56 | Emergency (ER) | payer MEDICAID ==
[~2020-07-24 20:56] MED LIST changes: +AMOX1TAB64 PO; +OXYC5TAB3 PO
--- NOTE | 2020-07-24 21:01 | NUR ---
PT BROUGHT STRAIGHT BACK TO ROOM 19 D/T RESPIRATORY DISTRESS. REPORTS HE HAS HX OF CHF. C/O SOB, FEVER, SEIZURE EARLIER TODAY. ED TECHS IN ROOM FOR EKG AND VS. RN PAGED TO ROOM.
[2020-07-24] MEDS ORDERED: LORazepam 2 MG/ML, 1ML ONE (21:18)
[2020-07-24] MEDS ORDERED: LORazepam 2 MG/ML, 1ML IV ONE (21:30)
[2020-07-24] MEDS ORDERED: SODIUM CHLORIDE FLUSH 10ML SYR IVF ONE (21:30)
[2020-07-24 21:53] LABS: BASOPHILS % (AUTO) 1 % (0-1); EOSINOPHILS % (AUTO) 0 % (1-7); LYMPHOCYTES % (AUTO) 19 % (22-44); MEAN CORPUSCULAR HEMOGLOBIN 27.7 pg (27.5-34.5); MEAN CORPUSCULAR HGB CONC 32.7 g/dL (33.2-36.2); MEAN PLATELET VOLUME 8.3 fL (7.4-10.4); MONOCYTES % (AUTO) 7 % (2-9); NEUTROPHILS % (AUTO) 74 % (42-75); PLATELET COUNT 232 x10^3/uL (130-400); RED BLOOD COUNT 5.76 x10^6/uL (4.38-5.82); RED CELL DISTRIBUTION WIDTH 22.6 % (9.4-14.8)
[2020-07-24 21:56] LABS: MD NO
--- NOTE | 2020-07-24 21:59 | NUR ---
PT BREATHING IMPROVED AFTER ATIVAN DOSE. PT WAS 28 BREATHS/MIN PRIOR TO DOSE. NOW 20 BREATHS/MIN. MD AWARE.
[2020-07-24 22:06] LABS: ALANINE AMINOTRANSFERASE 76 U/L (12-78); ALBUMIN 3.9 g/dL (3.4-5.0); ANION GAP 10 mmol/L (5-15); CHLORIDE 111 mmol/L (98-107); CREATININE 1.13 mg/dL (0.7-1.3)
[2020-07-24 22:10] LABS: ALKALINE PHOSPHATASE 110 U/L (45-117); BILIRUBIN,TOTAL 0.7 mg/dL (0.2-1.0); TROPONIN I 0.026 ng/mL (0.000-0.045)
[2020-07-24] MEDS ORDERED: FUROSEMIDE 40 MG/4 ML IV ONE (22:30)
[2020-07-24] MEDS ORDERED: FUROSEMIDE 40 MG/4 ML ONE (22:39)
[2020-07-24 22:51] VITALS: BP 117/74
--- NOTE | 2020-07-24 23:03 | NUR ---
VSS stable. Pt ambulatory. Pt provided list of shelters for homelessness. Pt provided medical assistance information to purchase prescription meds. Taxi vouchure provided for safe discharge to [facility]. Pt verbalized understanding for all discharge education.
== END 2020-07-24 23:06 | disposition home or self-care (01) ==
LOC: ED 22:30
DX: F45.8 Other somatoform disorders (principal); I11.0 Hypertensive heart disease with heart failure; I50.23 Acute on chronic systolic (congestive) heart failure; Z72.9 Problem related to lifestyle, unspecified; R07.9 Chest pain, unspecified; R00.0 Tachycardia, unspecified; R06.02 Shortness of breath; E11.9 Type 2 diabetes mellitus without complications; I25.2 Old myocardial infarction; I48.91 Unspecified atrial fibrillation; Z90.49 Acquired absence of other specified parts of digestive tract; Z87.891 Personal history of nicotine dependence
CPT/HCPCS: 36415; 71045; 80053; 83880; 84484; 85025; 85379; 87040; 93005; 96374; 96375; 99285; J1940; J2060

== ENCOUNTER 2020-07-26 20:36 | Emergency (ER) | payer MEDICAID ==
[~2020-07-26] VITALS: Ht 180.3 cm; Wt 130.0 kg
[~2020-07-26 20:36] MED LIST changes: +ETOMIDATE 20 MG/10 ML ONE; +PROPOFOL 10 MG/ML, 100ML IV ONE; +SUCCINYLCHOLINE 20 MG/ML, 10ML ONE
[2020-07-26] MEDS ORDERED: ONDANSETRON 2MG/ML, 2ML ONE (21:15)
[2020-07-26] MEDS ORDERED: MORPHINE SULFATE 4 MG/ML, 1ML ONE (21:16)
--- NOTE | 2020-07-26 21:28 | NUR ---
SOB, CP, wheezing. Used inhaler with no relief. Hx asthma, CHF. Patient in obvious distress. Breathing rapidly. Pt satting well on nonrebreather. other vss. piv placed and labs drawn. pt medicated for pain. lab at bedside for blood cultures. call light in reach
[2020-07-26] MEDS ORDERED: ALBUTEROL/IPRATROPIUM 2.5MG/0.5MG, 3 ML NPPB ONE (21:30)
[2020-07-26] MEDS ORDERED: ONDANSETRON 2MG/ML, 2ML IVPush ONE (21:30)
[2020-07-26] MEDS ORDERED: methylPREDNISolone SOD SUCC 125 MG/2 ML IM ONE (21:30)
[2020-07-26] MEDS ORDERED: MORPHINE SULFATE 4 MG/ML, 1ML IVPush ONE (21:30)
[2020-07-26 21:37] LABS: ANION GAP 9 mmol/L (5-15); CALCIUM 9.5 mg/dL (8.5-10.1); CHLORIDE 110 mmol/L (98-107); CREATININE 1.08 mg/dL (0.7-1.3)
[2020-07-26 21:39] LABS: BASOPHILS % (AUTO) 1 % (0-1); EOSINOPHILS % (AUTO) 0 % (1-7); LYMPHOCYTES % (AUTO) 22 % (22-44); MEAN CORPUSCULAR HEMOGLOBIN 27.5 pg (27.5-34.5); MEAN CORPUSCULAR HGB CONC 32.7 g/dL (33.2-36.2); MEAN PLATELET VOLUME 8.5 fL (7.4-10.4); MONOCYTES % (AUTO) 9 % (2-9); NEUTROPHILS % (AUTO) 67 % (42-75); PLATELET COUNT 208 x10^3/uL (130-400); RED BLOOD COUNT 5.42 x10^6/uL (4.38-5.82); RED CELL DISTRIBUTION WIDTH 22.5 % (9.4-14.8)
[2020-07-26] MEDS ORDERED: ALBUTEROL/IPRATROPIUM 2.5MG/0.5MG, 3 ML ONE (21:40)
[2020-07-26] MEDS ORDERED: methylPREDNISolone SOD SUCC 125 MG/2 ML ONE (21:40)
[2020-07-26 21:42] LABS: MD NO
[2020-07-26] MEDS ORDERED: LORazepam 2 MG/ML, 1ML IVPush ONE (22:00)
[2020-07-26] MEDS ORDERED: methylPREDNISolone SOD SUCC 125 MG/2 ML IVPush ONE (22:00)
[2020-07-26] MEDS ORDERED: LORazepam 2 MG/ML, 1ML ONE (22:02)
[2020-07-26 23:10] VITALS: BP 119/76
--- NOTE | 2020-07-26 23:29 | NUR ---
pt to be discharged. VSS. ra sats 95. pt given a snack and will then be discharged,
--- NOTE | 2020-07-26 23:51 | NUR ---
Discharge instructions given. All questions and concerns addressed. Patient ambulatory with a steady gait. Belongings with patient.
== END 2020-07-26 23:53 | disposition home or self-care (01) ==
LOC: ED 23:24
DX: J45.901 Unspecified asthma with (acute) exacerbation (principal); R07.89 Other chest pain; F45.8 Other somatoform disorders; F12.10 Cannabis abuse, uncomplicated; R00.0 Tachycardia, unspecified; I11.0 Hypertensive heart disease with heart failure; I50.9 Heart failure, unspecified; I25.2 Old myocardial infarction; I48.91 Unspecified atrial fibrillation; E03.9 Hypothyroidism, unspecified; Z90.49 Acquired absence of other specified parts of digestive tract; Z87.891 Personal history of nicotine dependence
CPT/HCPCS: 36415; 71045; 80048; 82040; 83880; 84484; 85025; 87040; 93005; 94640; 96374; 96375; 99285; J0330; J2060; J2270; J2405; J2704; J2930

== ENCOUNTER 2020-08-03 12:31 | Emergency (ER) | payer MEDICAID ==
[~2020-08-03] VITALS: Ht 180.3 cm; Wt 130.0 kg
[~2020-08-03 12:31] MED LIST changes: -ETOMIDATE 20 MG/10 ML ONE; -PROPOFOL 10 MG/ML, 100ML IV ONE; -SUCCINYLCHOLINE 20 MG/ML, 10ML ONE
[2020-08-03] MEDS ORDERED: LORazepam 1MG TABLET ONE (12:56)
[2020-08-03] MEDS ORDERED: LORazepam 1MG TABLET PO ONE (13:00)
--- NOTE | 2020-08-03 13:00 | NUR ---
PT HR DECREASED FROM 118 TO LOW 100s AFTER DEEP BREATHING. DISINTEGRATOR OPERATOR PER NOV. PT CONNECTED TO MONITORING. CALL LIGHT IN REACH.
[2020-08-03 13:33] LABS: ALANINE AMINOTRANSFERASE 32 U/L (12-78); ALBUMIN 3.6 g/dL (3.4-5.0); ANION GAP 8 mmol/L (5-15); CHLORIDE 111 mmol/L (98-107)
[2020-08-03 13:36] LABS: BASOPHILS % (AUTO) 1 % (0-1); EOSINOPHILS % (AUTO) 1 % (1-7); LYMPHOCYTES % (AUTO) 17 % (22-44); MEAN CORPUSCULAR HEMOGLOBIN 27.6 pg (27.5-34.5); MEAN CORPUSCULAR HGB CONC 32.3 g/dL (33.2-36.2); MEAN PLATELET VOLUME 7.6 fL (7.4-10.4); MONOCYTES % (AUTO) 5 % (2-9); NEUTROPHILS % (AUTO) 77 % (42-75); PLATELET COUNT 293 x10^3/uL (130-400); RED BLOOD COUNT 5.09 x10^6/uL (4.38-5.82); RED CELL DISTRIBUTION WIDTH 21.5 % (9.4-14.8)
[2020-08-03 13:38] LABS: ALKALINE PHOSPHATASE 107 U/L (45-117); BILIRUBIN,TOTAL 0.5 mg/dL (0.2-1.0); TOTAL PROTEIN 7.1 g/dL (6.4-8.2); TROPONIN I < 0.015 ng/mL (0.000-0.045)
[2020-08-03 13:42] LABS: MD NO
[2020-08-03 14:18] VITALS: BP 123/84
--- NOTE | 2020-08-03 14:18 | NUR ---
ALL RESULTS ARE BACK AT THIS TIME. SW HAS SEEN PT. CHART UP FOR RECHECK.
[2020-08-03] MEDS ORDERED: FUROSEMIDE 20 MG TABLET PO ONE (15:00)
[2020-08-03] MEDS ORDERED: ACETAMINOPHEN 500 MG TABLET PO ONE (15:00)
[2020-08-03] MEDS ORDERED: ALBUTEROL/IPRATROPIUM 2.5MG/0.5MG, 3 ML NEB ONE (15:00)
[2020-08-03] MEDS ORDERED: ACETAMINOPHEN 500 MG TABLET ONE (15:12)
[2020-08-03] MEDS ORDERED: ALBUTEROL/IPRATROPIUM 2.5MG/0.5MG, 3 ML ONE (15:12)
[2020-08-03] MEDS ORDERED: FUROSEMIDE 20 MG TABLET ONE (15:12)
== END 2020-08-03 16:06 | disposition left against medical advice (07) ==
LOC: ED 13:00
DX: R06.00 Dyspnea, unspecified (principal); R07.89 Other chest pain; G89.29 Other chronic pain; R00.0 Tachycardia, unspecified; I11.0 Hypertensive heart disease with heart failure; I50.9 Heart failure, unspecified; I48.91 Unspecified atrial fibrillation; I25.2 Old myocardial infarction; E11.9 Type 2 diabetes mellitus without complications; J45.909 Unspecified asthma, uncomplicated; Z91.14 Patient's other noncompliance with medication regimen; Z90.49 Acquired absence of other specified parts of digestive tract; Z87.891 Personal history of nicotine dependence
CPT/HCPCS: 36415; 80053; 83880; 84484; 85025; 93005; 94640; 99284